=== PATIENT | female | born 1970 | race Caucasian/White ===

== ENCOUNTER 2016-06-08 17:47 | Emergency (ER) | payer MEDICAID ==
[2016-04-15 13:07] VITALS: BMI 20.6
[~2016-06-08 17:47] MED LIST: DOXYCYCLINE HY100 M2 PO; HYDROCODONE-APA1 TAB PO; PREDNISONE20 MG PO; VENTOLIN HFA18 GM INH
[2016-06-08 18:55] LABS: EOSINOPHILS 24.2 % (0-7); HEMATOCRIT 31.5 % (36.0-48.0); HEMOGLOBIN 9.9 g/dL (12-16); IMMATURE GRANULOCYTES 0.7 % (0-5); LYMPHOCYTES 18.5 % (15-50); MCH 29.4 pg (26.0-34.0); MCHC 31.4 g/dL (31.0-37.0); MCV 93.5 fL (80.0-100.0); MEAN PLATELET VOLUME 11.1 fL (7.4-10.4); MONOCYTES 14.8 % (2-11); NEUTROPHILS 40.8 % (40-80); RBC 3.37 10x6/uL (4.00-5.40); RDW 16.1 % (11.5-14.5)
[2016-06-08 19:03] LABS: PLATELET COUNT 143 10x3/uL (130-400)
[2016-06-08 19:14] LABS: ALKALINE PHOSPHATASE 155 U/L (46-116); ALT (SGPT) 51 U/L (10-68); BILIRUBIN - TOTAL 0.35 mg/dL (0.2-1.3); CALC OSMOLALITY 278 mosm/kg (275-300); CALCIUM 8.5 mg/dL (8.5-10.1); CARBON DIOXIDE 25.6 mmol/L (21.0-32.0); CHLORIDE - SERUM 106 mmol/L (98-107); CREATININE - SERUM 0.7 mg/dL (0.6-1.3); GLUCOSE 80 mg/dL (74-106); POTASSIUM - SERUM 3.8 mmol/L (3.5-5.1); PROTEIN - SERUM 5.9 g/dL (6.4-8.2); SODIUM 141 mmol/L (136-145); UREA NITROGEN 10 mg/dL (7-18); eGFR NON AFRICAN AMERICAN > 90 mL/min (90-120)
[2016-06-08 19:30] LABS: CKMB 0.6 U/L (0.0-3.6); CREATINE KINASE 77 UL (21-215)
[2016-06-08 19:33] LABS: TROPONIN-I < 0.017 ng/mL (0.000-0.060)
== END 2016-06-08 20:35 | disposition home or self-care (01) ==
LOC: D.ER 17:47
PROVIDERS: Emergency Medicine
DX: K21.9 Gastro-esophageal reflux disease without esophagitis (principal); K21.0 Gastro-esophageal reflux disease with esophagitis; C16.9 Malignant neoplasm of stomach, unspecified; F17.200 Nicotine dependence, unspecified, uncomplicated

== ENCOUNTER → 2016-08-27 12:57 | Outpatient (CLI) | payer MEDICAID ==
[2016-04-15 13:07] VITALS: BMI 20.6
[2016-08-27 14:14] LABS: BASOPHILS 0.6 % (0.0-2.0); EOSINOPHILS 19.4 % (0-7); HEMATOCRIT 34.1 % (36.0-48.0); IMMATURE GRANULOCYTES 0.3 % (0-5); LYMPHOCYTES 22.3 % (15-50); MCH 30.5 pg (26.0-34.0); MCHC 32.3 g/dL (31.0-37.0); MCV 94.5 fL (80.0-100.0); MEAN PLATELET VOLUME 12.2 fL (7.4-10.4); MONOCYTES 11.5 % (2-11); NEUTROPHILS 45.9 % (40-80); PLATELET COUNT 122 10x3/uL (130-400); RBC 3.61 10x6/uL (4.00-5.40); RDW 15.7 % (11.5-14.5); WBC 3.1 10x3/uL (4.8-10.8)
[2016-08-27 14:24] LABS: ALBUMIN 3.3 g/dL (3.4-5.0); ALKALINE PHOSPHATASE 270 U/L (46-116); ALT (SGPT) 77 U/L (10-68); AMYLASE - SERUM 56 U/L (25-115); BILIRUBIN - TOTAL 0.38 mg/dL (0.2-1.3); CALC OSMOLALITY 279 mosm/kg (275-300); CALCIUM 8.2 mg/dL (8.5-10.1); CHLORIDE - SERUM 106 mmol/L (98-107); CREATININE - SERUM 0.6 mg/dL (0.6-1.3); GLUCOSE 71 mg/dL (74-106); LIPASE 194 U/L (73-393); POTASSIUM - SERUM 4.2 mmol/L (3.5-5.1); PROTEIN - SERUM 6.9 g/dL (6.4-8.2); SODIUM 142 mmol/L (136-145); UREA NITROGEN 10 mg/dL (7-18); eGFR NON AFRICAN AMERICAN > 90 mL/min (90-120)
== END | disposition home or self-care (01) ==
LOC: D.LABREF 12:57
PROVIDERS: Student in an Organized Health Care Education/Training Program
DX: R11.2 Nausea with vomiting, unspecified (principal); E86.0 Dehydration; R63.4 Abnormal weight loss

== ENCOUNTER → 2016-08-31 12:23 | Outpatient (CLI) | payer MEDICAID ==
[2016-04-15 13:07] VITALS: BMI 20.6
[2016-08-31 12:49] LABS: EOSINOPHILS 20.9 % (0-7); HEMATOCRIT 34.5 % (36.0-48.0); HEMOGLOBIN 11.1 g/dL (12-16); IMMATURE GRANULOCYTES 0.3 % (0-5); LYMPHOCYTES 19.3 % (15-50); MCH 30.3 pg (26.0-34.0); MCHC 32.2 g/dL (31.0-37.0); MCV 94.3 fL (80.0-100.0); MEAN PLATELET VOLUME 11.9 fL (7.4-10.4); MONOCYTES 12.2 % (2-11); NEUTROPHILS 46.3 % (40-80); PLATELET COUNT 123 10x3/uL (130-400); RBC 3.66 10x6/uL (4.00-5.40); RDW 15.7 % (11.5-14.5); WBC 3.1 10x3/uL (4.8-10.8)
[2016-08-31 13:31] LABS: ALBUMIN 3.4 g/dL (3.4-5.0); ALKALINE PHOSPHATASE 246 U/L (46-116); ALT (SGPT) 59 U/L (10-68); CALC OSMOLALITY 276 mosm/kg (275-300); CALCIUM 8.8 mg/dL (8.5-10.1); CARBON DIOXIDE 28.2 mmol/L (21.0-32.0); CHLORIDE - SERUM 105 mmol/L (98-107); CREATININE - SERUM 0.6 mg/dL (0.6-1.3); GLUCOSE 85 mg/dL (74-106); POTASSIUM - SERUM 4.2 mmol/L (3.5-5.1); PROTEIN - SERUM 6.8 g/dL (6.4-8.2); SODIUM 140 mmol/L (136-145); UREA NITROGEN 10 mg/dL (7-18); eGFR NON AFRICAN AMERICAN > 90 mL/min (90-120)
== END | disposition home or self-care (01) ==
LOC: D.LABREF 12:23
PROVIDERS: Student in an Organized Health Care Education/Training Program
DX: R79.9 Abnormal finding of blood chemistry, unspecified (principal); D69.6 Thrombocytopenia, unspecified; D72.819 Decreased white blood cell count, unspecified

== ENCOUNTER 2016-09-15 12:56 | Day surgery (SDC) | payer BC ==
[~2016-09-15] VITALS: Ht 170.2 cm; Wt 55.9 kg
--- NOTE | ~2016-09-15 | OP ---
PATIENT NAME: PEPE BOLTON MEDICAL RECORD: [id number] :70 LOCATION:D.OPS ADMISSION DATE: SURGEON: KAYLYN DOWNEY MD DATE OF OPERATION: 09/15/2016 EGD and Colonoscopy Report PROCEDURES: EGD with biopsy and balloon dilatation, colonoscopy with stool study collection, biopsy and polypectomy. DATA ARCHITECT: Kaylyn Downey MD. SCOPE: Olympus video gastroscope and Olympus video colonoscope. MEDICATIONS: Provided per TIVA anesthesia. The patient received 400 mg of propofol for this procedure, O2 of 4 liters. INDICATION FOR TIVA: Asthma, HIV positive AIDS expression. INDICATION FOR THE PROCEDURE: Gastroesophageal reflux disease, nausea, dysphagia, pain associated with hunger, epigastric abdominal pain present since April 2016. The patient is taking Phenergan for her nausea, but not currently on any gastroesophageal reflux disease medication. She has been having some constipation and unintentional weight loss of 17 pounds in the past month. A CT of the chest, abdomen and pelvis April 2016 revealed bilateral pulmonary infiltrates of the mid to lower lung zones concerning for pneumonia, moderately severe fatty replacement changes in the liver with previous cholecystectomy, small right renal cyst and mild sigmoid diverticulosis. The patient's last colonoscopy was [address] Power, which revealed internal hemorrhoids, otherwise normal exam. No family history of colon cancer. The patient will have an EGD with balloon dilatation and biopsy followed by a colonoscopy. FINDINGS: Informed consent was given. The patient was made comfortable with the above medications. After reaching an adequate level of sedation by slow IV push, the patient was placed on her left side. The endoscope was then advanced under direct visualization through the posterior pharyngeal area and advanced to the distal esophagus. It was noted throughout the entire esophagus that the patient had Pham esophagitis. Also, noted was mild distal esophagitis. After dilatation of a minimal distal esophageal stricture, biopsies were taken of the distal esophageal area as well as the mid esophagus. We did dilate the stricture to 60-Haitian without complication. We then entered the gastric area and in retroflexing, discovered only minimal inflammation noted, most pronounced at the antral area. A Helicobacter pylori test was performed in a histopathology biopsy. The duodenal bulb to the second portion was normal with bile present, biopsies were obtained. The scope was then withdrawn. IMPRESSION: 1. Pham esophagitis throughout the entire esophagus, biopsies obtained. 2. Mild distal esophagitis, biopsied in the distal and mid esophagus. 3. Distal esophageal stricture dilated to 60-Haitian without complication. 4. Mild distal antritis, biopsy taken. No ulcers, no erosions. 5. Mild duodenitis. No ulcers, no erosions. Biopsies taken in the second part OPERATIVE REPORT [id number] PEPE BOLTON of the duodenum. PLAN: 1. We will continue the patient on Diflucan at a dose of 200 mg 2 p.o. q. day, use caution with anti-inflammatory drugs. We will treat with omeprazole 20 mg p.o. q.a.m. and famotidine 20 mg p.o. q.h.s. 2. The patient to follow reflux precautions stringently, both dietary and positional. No chocolate, tomatoes, citrus, caffeine, fatty foods, peppermint, no tobacco, no alcohol. The patient should not eat late at night and should sit up for at least 2 hours after meals. COLONOSCOPY WITH STOOL COLLECTION, COLONOSCOPY WITH BIOPSY, COLONOSCOPY WITH POLYPECTOMY: After completion of the EGD part of the procedure, the patient was again positioned on her left side and medications were adjusted for her comfort and safety. The colonoscope was advanced to the cecum where the ileocecal valve and appendiceal orifice were identified. Stool was collected during this procedure for O&P, CDT, wbc, culture, funguses, bacterial culture, viruses and parasites. On withdrawal of the scope, mucosa was carefully inspected. The patient was noted to have some mild distal sigmoid inflammation, biopsies were obtained. No ulcers were noted. Minimal bowel wall swelling was appreciated. In the rectum, a 0.5 cm polyp was seen and removed with hot biopsy forcep technique. On retroflexion and final withdrawal of the scope, minimal hemorrhoids were appreciated. IMPRESSIONS: 1. Stool collected for O&P, CDT, WBC, culture, bacteria, funguses, viruses and parasites. 2. Very mild distal inflammation in the distal sigmoid area, biopsied. No ulcers, erosions, just a few areas of minimal inflammation. 3. A 0.5 cm polyp in the rectal area removed with hot biopsy forcep technique. 4. Minimal left-sided diverticulosis without diverticulitis. PLAN: 1. Again, no aspirin or anti-inflammatory drugs times 14 days. 2. High fiber diet. 3. Avoid tobacco. 4. Avoid caffeine. 5. The patient to take probiotics daily. For constipation, MiraLax and stool softeners. Return to clinic in 1 month. TRANSINT:[id number] Voice Confirmation ID: [id number] DOCUMENT ID: [id number] KAYLYN DOWNEY MD CC: TANNA MCKEON MD and Zelda RUBI [id number] DICTATION DATE: 09/15/161722 UNDER PRESSER: 09/16/16 0010 [facility] 09/15/[address] [address]
[2016-09-15] MEDS ORDERED: DIFLUCAN200 MG PO (13:49)
[2016-09-15] MEDS ORDERED: LEXAPRO10 MG PO (13:50)
[2016-09-15] MEDS ORDERED: ULTRAM50 MG PO (13:50)
[2016-09-15] MEDS ORDERED: IBUPROFEN600 MG PO (13:51)
[2016-09-15 13:57] VITALS: BP 106/56; Ht 170.2 cm; Wt 55.9 kg
[2016-09-15 14:31] LABS: BASOPHILS 0.6 % (0-2); EOSINOPHILS 20.2 % (0-7); HEMATOCRIT 35.9 % (36.0-48.0); HEMOGLOBIN 11.6 g/dL (12-16); LYMPHOCYTES 24.8 % (15-50); MCH 30.9 pg (26.0-34.0); MCHC 32.3 g/dL (31.0-37.0); MCV 95.7 fL (80.0-100.0); MEAN PLATELET VOLUME 12.1 fL (7.4-10.4); MONOCYTES 14.6 % (2-11); NEUTROPHILS 39.8 % (40-80); PLATELET COUNT 116 10x3/uL (130-400); RBC 3.75 10x6/uL (4.00-5.40); RDW 15.8 % (11.5-14.5); WBC 3.2 10x3/uL (4.8-10.8)
[2016-09-15 14:40] LABS: APTT 34.3 SECONDS (22.8-39.4); INR 0.91 (0.85-1.17); PROTIME 12.1 SECONDS (11.6-15.0)
[2016-09-15 14:56] LABS: ALBUMIN 3.2 g/dL (3.4-5.0); ALKALINE PHOSPHATASE 247 U/L (46-116); ALT (SGPT) 53 U/L (10-68); BILIRUBIN - TOTAL 0.42 mg/dL (0.2-1.3); CALC OSMOLALITY 282 mosm/kg (275-300); CALCIUM 8.3 mg/dL (8.5-10.1); CARBON DIOXIDE 27.4 mmol/L (21.0-32.0); CHLORIDE - SERUM 109 mmol/L (98-107); CREATININE - SERUM 0.6 mg/dL (0.6-1.3); GLUCOSE 76 mg/dL (74-106); POTASSIUM - SERUM 3.6 mmol/L (3.5-5.1); PROTEIN - SERUM 6.8 g/dL (6.4-8.2); SODIUM 143 mmol/L (136-145); UREA NITROGEN 9 mg/dL (7-18); eGFR NON AFRICAN AMERICAN > 90 mL/min (90-120)
--- NOTE | 2016-09-15 16:48 | NUR ---
1645 60 PERSIAN BALLOON DILATION DONE X 1 MINUTE.
--- NOTE | 2016-09-15 17:28 | NUR ---
1725 BACK FROM COLONOSCOPY AWAKENING. RESP EVEN AND NONLABORED. PASSED FLATUS FULL LIQUIDS ORDERED.
--- NOTE | 2016-09-15 18:12 | NUR ---
1755 UP TO THE BR VOIDED PAD CHANGED. TOLERATED FULL LIQUIDS.
--- NOTE | 2016-09-15 18:57 | NUR ---
1820 WENT OVER DISCHARGE INSTRUCTIONS NO DRIVING SCRIPTS GONE OVER AND TOLD TO CONTINUE HER DIFLUCAN. INSTRUCTED NO NSAIDS X 14 DAYS AND LIST REVIEWED. REFLUX PRECAUTIONS AND DIET GONE OVER. VERBALLY UNDERSTANDS.
--- NOTE | 2016-09-15 18:58 | NUR ---
1825 TO HOME VIA W/C AFTER V/S WITH FAMILY.
== END 2016-09-15 18:30 | disposition home or self-care (01) ==
LOC: D.OPS 12:56
PROVIDERS: Anesthesiology
DX: B37.81 Candidal esophagitis (principal); K22.2 Esophageal obstruction; K29.60 Other gastritis without bleeding; K29.80 Duodenitis without bleeding; K63.5 Polyp of colon; K57.30 Diverticulosis of large intestine without perforation or abscess without bleeding; K21.9 Gastro-esophageal reflux disease without esophagitis; K59.00 Constipation, unspecified; R63.4 Abnormal weight loss; B20 Human immunodeficiency virus [HIV] disease; J45.909 Unspecified asthma, uncomplicated

== ENCOUNTER → 2016-09-21 09:52 | Outpatient (CLI) | payer MEDICAID ==
[2016-09-15 13:57] VITALS: BMI 19.3
[~2016-09-21 09:52] MED LIST changes: +DIFLUCAN200 MG PO; +IBUPROFEN600 MG PO; +LEXAPRO10 MG PO; +ULTRAM50 MG PO
[2016-09-21 11:01] LABS: BILIRUBIN - DIRECT 0.08 mg/dL (0.00-0.30); BILIRUBIN - INDIRECT 0.26 mg/dL (0.00-1.00); BILIRUBIN - TOTAL 0.34 mg/dL (0.2-1.3); PROTEIN - SERUM 6.9 g/dL (6.4-8.2)
== END | disposition home or self-care (01) ==
LOC: D.US 08:30 → D.LAB 09:15
PROVIDERS: Internal Medicine Gastroenterology
DX: K76.0 Fatty (change of) liver, not elsewhere classified (principal)

== ENCOUNTER → 2016-11-23 13:29 | Outpatient (CLI) | payer OTHER ==
[2016-09-15 13:57] VITALS: BMI 19.3
== END | disposition home or self-care (01) ==
LOC: D.RT 13:29
DX: Z02.71 Encounter for disability determination (principal)

== ENCOUNTER 2016-11-25 18:43 | Emergency (ER) | payer OTHER, BC ==
[2016-09-15 13:57] VITALS: BMI 19.3
[2016-11-25 19:51] LABS: APPEARANCE CLEAR (CLEAR); BILIRUBIN NEGATIVE (NEGATIVE); COLOR YELLOW (YELLOW); GLUCOSE NEGATIVE (NEGATIVE); KETONE NEGATIVE (NEGATIVE); LEUKOCYTE ESTERASE 1+ (NEGATIVE); NITRITE NEGATIVE (NEGATIVE); PROTEIN NEGATIVE (NEGATIVE); SPECIFIC GRAVITY 1.005 (1.005-1.020); UROBILINOGEN NORMAL (NORMAL)
[2016-11-25 19:53] LABS: BACTERIA NONE SEEN /hpf (NONE SEEN); EPITHELIAL CELLS RARE /hpf (0-5); RED CELLS - URINE NONE SEEN /hpf (0-5); WHITE CELLS - URINE RARE /hpf (0-5)
[2016-11-25 20:06] LABS: BASOPHILS 1.2 % (0-2); EOSINOPHILS 11.5 % (0-7); HEMATOCRIT 33.3 % (36.0-48.0); HEMOGLOBIN 10.9 g/dL (12-16); IMMATURE GRANULOCYTES 0.3 % (0-5); LYMPHOCYTES 12.1 % (15-50); MCHC 32.7 g/dL (31.0-37.0); MCV 94.6 fL (80.0-100.0); MONOCYTES 20.9 % (2-11); PLATELET COUNT 121 10x3/uL (130-400); RBC 3.52 10x6/uL (4.00-5.40); RDW 15.7 % (11.5-14.5); WBC 3.2 10x3/uL (4.8-10.8)
[2016-11-25 20:30] LABS: ALBUMIN 3.3 g/dL (3.4-5.0); ALKALINE PHOSPHATASE 121 U/L (46-116); ALT (SGPT) 23 U/L (10-68); AMYLASE - SERUM 52 U/L (25-115); BILIRUBIN - TOTAL 0.39 mg/dL (0.2-1.3); CALC OSMOLALITY 274 mosm/kg (275-300); CARBON DIOXIDE 27.1 mmol/L (21.0-32.0); CHLORIDE - SERUM 103 mmol/L (98-107); CREATININE - SERUM 0.8 mg/dL (0.6-1.3); GLUCOSE 104 mg/dL (74-106); LIPASE 119 U/L (73-393); POTASSIUM - SERUM 4.1 mmol/L (3.5-5.1); PROTEIN - SERUM 7.6 g/dL (6.4-8.2); SODIUM 139 mmol/L (136-145); UREA NITROGEN 5 mg/dL (7-18); eGFR NON AFRICAN AMERICAN 82 mL/min (90-120)
== END 2016-11-25 23:10 | disposition home or self-care (01) ==
LOC: D.ER 18:43
PROVIDERS: Family Medicine
DX: K52.9 Noninfective gastroenteritis and colitis, unspecified (principal); R11.10 Vomiting, unspecified; K21.9 Gastro-esophageal reflux disease without esophagitis; C16.9 Malignant neoplasm of stomach, unspecified; B20 Human immunodeficiency virus [HIV] disease; F17.200 Nicotine dependence, unspecified, uncomplicated

== ENCOUNTER 2016-12-24 09:52 | Emergency (ER) | payer MEDICAID ==
[2016-09-15 13:57] VITALS: BMI 19.3
[2016-12-24 11:00] LABS: BASOPHILS 0.4 % (0-2); EOSINOPHILS 3.2 % (0-7); HEMATOCRIT 32.8 % (36.0-48.0); HEMOGLOBIN 10.7 g/dL (12-16); IMMATURE GRANULOCYTES 0.2 % (0-5); LYMPHOCYTES 10.3 % (15-50); MCH 30.7 pg (26.0-34.0); MCHC 32.6 g/dL (31.0-37.0); MEAN PLATELET VOLUME 12.2 fL (7.4-10.4); MONOCYTES 12.4 % (2-11); NEUTROPHILS 73.5 % (40-80); RBC 3.49 10x6/uL (4.00-5.40); RDW 15.3 % (11.5-14.5); WBC 5.3 10x3/uL (4.8-10.8)
[2016-12-24 11:06] LABS: PLATELET COUNT 152 10x3/uL (130-400)
[2016-12-24 11:10] LABS: APTT 33.5 SECONDS (22.8-39.4); INR 0.93 (0.85-1.17); PROTIME 12.3 SECONDS (11.6-15.0)
[2016-12-24 11:16] LABS: ALKALINE PHOSPHATASE 131 U/L (46-116); ALT (SGPT) 32 U/L (10-68); BILIRUBIN - TOTAL 0.59 mg/dL (0.2-1.3); CALC OSMOLALITY 266 mosm/kg (275-300); CALCIUM 8.5 mg/dL (8.5-10.1); CARBON DIOXIDE 26.4 mmol/L (21.0-32.0); CHLORIDE - SERUM 101 mmol/L (98-107); CREATININE - SERUM 0.7 mg/dL (0.6-1.3); GLUCOSE 91 mg/dL (74-106); POTASSIUM - SERUM 3.8 mmol/L (3.5-5.1); PROTEIN - SERUM 7.5 g/dL (6.4-8.2); SODIUM 134 mmol/L (136-145); UREA NITROGEN 9 mg/dL (7-18); eGFR NON AFRICAN AMERICAN > 90 mL/min (90-120)
[2016-12-24 12:39] LABS: APPEARANCE CLOUDY (CLEAR); BACTERIA MANY /hpf (NONE SEEN); BILIRUBIN NEGATIVE (NEGATIVE); COLOR YELLOW (YELLOW); EPITHELIAL CELLS 0-5 /hpf (0-5); GLUCOSE NEGATIVE (NEGATIVE); KETONE NEGATIVE (NEGATIVE); LEUKOCYTE ESTERASE 2+ (NEGATIVE); MUCUS <1+ /lpf (NONE SEEN); NITRITE NEGATIVE (NEGATIVE); PROTEIN NEGATIVE (NEGATIVE); UROBILINOGEN NORMAL (NORMAL)
[2016-12-24 12:40] LABS: RED CELLS - URINE RARE /hpf (0-5)
== END 2016-12-24 16:55 | disposition home or self-care (01) ==
LOC: D.ER 09:52
PROVIDERS: Emergency Medicine; Nurse Practitioner Family
DX: N39.0 Urinary tract infection, site not specified (principal); R53.1 Weakness; A59.9 Trichomoniasis, unspecified; K21.9 Gastro-esophageal reflux disease without esophagitis; B20 Human immunodeficiency virus [HIV] disease; C16.9 Malignant neoplasm of stomach, unspecified; F17.200 Nicotine dependence, unspecified, uncomplicated; R10.9 Unspecified abdominal pain; R07.9 Chest pain, unspecified; R50.9 Fever, unspecified; R53.83 Other fatigue; R51 Headache; M54.2 Cervicalgia; R11.0 Nausea

== ENCOUNTER 2017-01-04 17:08 | Inpatient (IN) | payer MEDICAID ==
[~2017-01-04] VITALS: Ht 165.1 cm; Wt 52.6 kg
--- NOTE | ~2017-01-04 | PRO ---
PATIENT:PEPE BOLTON MEDICAL RECORD: [id number] : 70 LOCATION:D. D.2131 ADMISSION DATE: 01/04/17 PROCEDURE PERFORMED BY: VANDANA JOYA MD DATE OF PROCEDURE: 01/06/2017 PROCEDURE: Fiberoptic bronchoscopy. INDICATION: Ms. Bolton is a 46-year-old female, who has HIV disease, admitted with bilateral pneumonia. Fiberoptic bronchoscopy was carried out to get specimen for culture and sensitivity and PCP. MONITORING: EKG, pulse, and blood pressure were monitored throughout the procedure. MEDICATIONS: Atropine 0.6 mg IM, morphine 4 mg IM, Versed 5 mg IV in divided doses, fentanyl 100 mcg IV in divided doses. PROCEDURE IN DETAIL: After passing the bronchoscope through the mouth. The epiglottis was normal. The vocal cords were normal, moving equally on phonation. The main trachea was normal. The kenton was sharp. The right main bronchus was subsegment to the right upper lobe, right lower lobe, right middle lobe within normal range. No endobronchial lesion was seen. The left main bronchus was normal. The subsegment to the left upper lobe, left lower lobe within normal range. No endobronchial lesion was seen. There white secretions in the endobronchial tree, no endobronchial lesion. Specimen washing was obtained and sent for routine culture and sensitivity, AFB and fungus and cytology as well as for PCP staining. Overall, the patient tolerated the procedure very well. TRANSINT:[id number] Voice Confirmation ID: [id number] DOCUMENT ID: [id number] VANDANA JOYA MD CC: [id number] DICTATION DATE: 01/06/17 1206 PRODUCT DEVELOPMENT INTERN: 01/06/172013 ADM IN [facility] [address] [id number]
--- NOTE | ~2017-01-04 | CN ---
PATIENT NAME:PEPE KENDALL MEDICAL RECORD: [id number] : 70 LOCATION:D. D.2131 ADMIT DATE: 01/04/17 ACCOUNT: [id number] CONSULTING PHYSICIAN: VANDANA JOYA MD REFERRING PHYSICIAN: SANTY BE MD DATE OF CONSULTATION: 01/05/2017 CONSULT REQUESTING PHYSICIAN: Santy Be MD REASON FOR CONSULTATION: Bilateral pneumonia, HIV disease. HISTORY OF PRESENT ILLNESS: Ms. Kendall is a 46-year-old female who has a history of HIV disease. She is sick for the last few days. She is complaining of fever and chills. She is coughing productive yellow color sputum production. She is also having shortness of breath. On evaluation in the ER, she was found out she has bilateral lower lobe infiltrate and possibly associated pulmonary fibrosis. REVIEW OF SYSTEMS: Mainly in the history of present illness. PAST MEDICAL HISTORY: 1. COPD. 2. HIV/AIDS disease. 3. Pneumonia. 4. History of diarrhea. PAST SURGICAL HISTORY: 1. She had a tubal ligation. 2. Cholecystectomy. 3. Lymph node biopsy. ALLERGIES: SHE IS ALLERGIC TO PENICILLIN AND ASPIRIN. PRESENT MEDICATIONS: On [place] was reviewed. PERSONAL AND SOCIAL HISTORY: The patient is an ex-smoker. She is a nondrinker. FAMILY HISTORY: Significant for diabetes and cancer. PHYSICAL EXAMINATION: GENERAL: Now, the patient is lying comfortably. She is not in acute distress. VITAL SIGNS: The blood pressure is 96/56, pulse is 111, respirations 19, temperature 97.3, SPO2 is 98% on 2 liters nasal cannula. HEENT: Conjunctivae are pink. Sclerae nonicteric. NECK: Supple, no JVD. CHEST: Bilateral crackles. No wheezing. HEART: Rhythm regular, normal sound, no murmur. ABDOMEN: Soft. Bowel sounds present. No hepatosplenomegaly. RECTAL: Deferred. EXTREMITIES: No cyanosis, no clubbing, no pedal edema. SKIN: Warm, normal turgor. CENTRAL NERVOUS SYSTEM: The patient is awake and alert. There is no obvious cranial nerve abnormality. The gait was not tested. IMAGING: CT scan of the chest: There is bilateral diffuse infiltrate with CONSULT REPORT [id number] PEPE KENDALL ground-glass infiltrate. There are severe emphysematous changes. OTHER LABORATORY DATA: CBC: The WBC is 4.6, hemoglobin is 8.8, hematocrit is 27.5, the platelet count is 142. ABGs: pH is 7.43, pCO2 is 30.2, pO2 of 62, bicarbonate is 20.3. IMPRESSION: 1. Acute hypoxic respiratory failure. 2. Bilateral pneumonia, typical versus atypical. 3. Human immunodeficiency virus disease/acquired immune deficiency syndrome. 4. Febrile illness secondary to pneumonia. 5. Chronic obstructive pulmonary disease. 6. Acute hypoxic respiratory failure. RECOMMENDATION: 1. Continue present antibiotic per Dr. Mariscal. Continue the albuterol/ipratropium nebulizer. 2. We will proceed with the fiberoptic bronchoscopy in a.m. Dr. Be, thank you for involving me in the care of Ms. Kendall. TRANSINT:[id number] Voice Confirmation ID: [id number] DOCUMENT ID: [id number] VANDANA JOYA MD CC: SANTY BE MD [id number] DICTATION DATE: 01/05/17 163 LURE MAKER: 01/05/172126 ADM IN [place] [id number] [place] [id number]
[2017-01-04 18:33] LABS: BASOPHILS 0 % (0-2); EOSINOPHILS 0 % (0-7); HEMATOCRIT 27.5 % (36.0-48.0); HEMOGLOBIN 8.8 g/dL (12-16); IMMATURE GRANULOCYTES 0.2 % (0-5); LYMPHOCYTES 10.2 % (15-50); MCH 29.9 pg (26.0-34.0); MCV 93.5 fL (80.0-100.0); MEAN PLATELET VOLUME 11.5 fL (7.4-10.4); NEUTROPHILS 74.6 % (40-80); PLATELET COUNT 142 10x3/uL (130-400); RBC 2.94 10x6/uL (4.00-5.40); RDW 16.1 % (11.5-14.5); WBC 4.6 10x3/uL (4.8-10.8)
[2017-01-04 19:09] LABS: ALBUMIN 2.1 g/dL (3.4-5.0); ALKALINE PHOSPHATASE 105 U/L (46-116); ALT (SGPT) 17 U/L (10-68); BILIRUBIN - TOTAL 0.51 mg/dL (0.2-1.3); CALC OSMOLALITY 274 mosm/kg (275-300); CALCIUM 7.1 mg/dL (8.5-10.1); CARBON DIOXIDE 23.5 mmol/L (21.0-32.0); CHLORIDE - SERUM 104 mmol/L (98-107); CREATININE - SERUM 0.6 mg/dL (0.6-1.3); GLUCOSE 98 mg/dL (74-106); POTASSIUM - SERUM 3.2 mmol/L (3.5-5.1); PROTEIN - SERUM 5.3 g/dL (6.4-8.2); SODIUM 138 mmol/L (136-145); UREA NITROGEN 11 mg/dL (7-18); eGFR NON AFRICAN AMERICAN > 90 mL/min (90-120)
[2017-01-04 20:09] LABS: APPEARANCE CLEAR (CLEAR); BILIRUBIN NEGATIVE (NEGATIVE); COLOR YELLOW (YELLOW); GLUCOSE NEGATIVE (NEGATIVE); KETONE SMALL mg/dL (NEGATIVE); LEUKOCYTE ESTERASE 2+ (NEGATIVE); NITRITE NEGATIVE (NEGATIVE); PROTEIN 1+ mg/dL (NEGATIVE); UROBILINOGEN NORMAL (NORMAL)
[2017-01-04 20:19] LABS: BACTERIA MODERATE /hpf (NONE SEEN); EPITHELIAL CELLS 0-5 /hpf (0-5); RED CELLS - URINE 0-5 /hpf (0-5); WHITE CELLS - URINE 25-50 /hpf (0-5)
[2017-01-05] VITALS: BP 94/59
[2017-01-05] MEDS ORDERED: BACTRIM DS TABL1 TAB PO (00:09)
[2017-01-05 01:42] VITALS: BP 94/59; BMI 20.3
[2017-01-05 04:00] VITALS: BP 81/50
--- NOTE | 2017-01-05 04:22 | NUR ---
RESTING WITH EYES CLOSED, RESPERATIONS EVEN, NO S/S DISTRESS NOTED.
--- NOTE | 2017-01-05 07:40 | NUR ---
AM ROUNDS- PT IN BED, DENIES ANY NEEDS AT THIS TIME. BED LOW AND WHEELS LOCKED, BEDSIDE RAILS X2. RESP EVEN AND UNLABORED ON 2L, LT AC INFUSING NS AT KVO. PT REFUSED TO WEAR SCD'S " STATED I DONT NEED THEM, SINCE I AM UP AND DOWN ALL THE TIME". PT INFORMED ABOUT URINE AND STOOL SAMPLE NEEDED. NAD NOTED, CALL LIGHT IN REACH, WILL CONTINUE TO MONITOR.
[2017-01-05 09:00] VITALS: BP 96/56
--- NOTE | 2017-01-05 09:11 | NUR ---
AM MEDS GIVEN. INFORMED PT THAT WE NEED URINE SAMPLE, HAT AND WIPES PROVIDED. PT DENIES ANY NEEDS AT THIS TIME. CALL LIGHT IN REACH, CRYSTAL GARCIA, WILL CONTINUE TO MONITOR.
[2017-01-05 11:55] LABS: % SATURATION 15 % (15-55); IRON 29 ug/dl (35-150); TOTAL IRON BIND CAPACITY 187 ug/dl (260-445); UNSAT IRON BIND CAPACITY 158 ug/dl (150-375)
[2017-01-05 12:38] LABS: APTT 39.9 SECONDS (22.8-39.4); INR 1.08 (0.85-1.17); PROTIME 13.9 SECONDS (11.6-15.0)
[2017-01-05 13:46] VITALS: Ht 165.1 cm; Wt 52.6 kg
--- NOTE | 2017-01-05 14:45 | NUR ---
PT TRANSFERED TO SPECIALS FOR LUMBER PUNCTURE, NAD NOTED.
[2017-01-05 15:59] LABS: GLUCOSE - CSF 84 MG/DL (40-75); PROTEIN - CSF 32 MG/DL (12-60)
[2017-01-05 16:20] LABS: APPEARANCE - CSF CLEAR
[2017-01-05 16:22] LABS: RBC - CSF 0 cmm (0-0)
[2017-01-05 18:51] LABS: BASOPHILS 0 % (0-2); EOSINOPHILS 0 % (0-7); HEMATOCRIT 30.3 % (36.0-48.0); HEMOGLOBIN 9.7 g/dL (12-16); IMMATURE GRANULOCYTES 0.3 % (0-5); MCH 29.8 pg (26.0-34.0); MCV 92.9 fL (80.0-100.0); MEAN PLATELET VOLUME 10.6 fL (7.4-10.4); MONOCYTES 10.4 % (2-11); NEUTROPHILS 81.3 % (40-80); PLATELET COUNT 149 10x3/uL (130-400); RBC 3.26 10x6/uL (4.00-5.40); RDW 15.7 % (11.5-14.5); WBC 3.8 10x3/uL (4.8-10.8)
[2017-01-05 19:00] VITALS: BP 87/54
[2017-01-05 19:08] LABS: APTT 34.3 SECONDS (22.8-39.4)
[2017-01-05 19:09] LABS: INR 1.08 (0.85-1.17); PROTIME 13.9 SECONDS (11.6-15.0)
--- NOTE | 2017-01-05 20:50 | NUR ---
HS MEDS GIVEN WITH FRESH ICE WATER, PT STATES THAT SHE STILL HAS A HEADACHE, BUT ITS STARTING TO FEEL BETTER.
[2017-01-06] VITALS (11 sets, daily range): BP systolic 98–122; BP diastolic 61–83
--- NOTE | 2017-01-06 01:31 | NUR ---
CALL LIGHT IN REACH, WILL CONTINUE WITH PLAN OF CARE.
[2017-01-06 06:46] LABS: BASOPHILS 0 % (0-2); EOSINOPHILS 0 % (0-7); HEMATOCRIT 30.4 % (36.0-48.0); HEMOGLOBIN 9.6 g/dL (12-16); IMMATURE GRANULOCYTES 0.3 % (0-5); LYMPHOCYTES 3.8 % (15-50); MCH 29.6 pg (26.0-34.0); MCHC 31.6 g/dL (31.0-37.0); MCV 93.8 fL (80.0-100.0); MEAN PLATELET VOLUME 11.6 fL (7.4-10.4); MONOCYTES 5.6 % (2-11); NEUTROPHILS 90.3 % (40-80); PLATELET COUNT 158 10x3/uL (130-400); RBC 3.24 10x6/uL (4.00-5.40); RDW 16.2 % (11.5-14.5)
[2017-01-06 06:59] LABS: ALBUMIN 2.3 g/dL (3.4-5.0); ALKALINE PHOSPHATASE 98 U/L (46-116); ALT (SGPT) 18 U/L (10-68); BILIRUBIN - TOTAL 0.33 mg/dL (0.2-1.3); CALCIUM 8.4 mg/dL (8.5-10.1); CARBON DIOXIDE 25.7 mmol/L (21.0-32.0); CHLORIDE - SERUM 107 mmol/L (98-107); CREATININE - SERUM 0.6 mg/dL (0.6-1.3); PROTEIN - SERUM 6.3 g/dL (6.4-8.2); SODIUM 142 mmol/L (136-145); UREA NITROGEN 9 mg/dL (7-18); WBC 10.1 10x3/uL (4.8-10.8); eGFR NON AFRICAN AMERICAN > 90 mL/min (90-120)
[2017-01-06 07:18] LABS: CALC OSMOLALITY 285 mosm/kg (275-300); GLUCOSE 173 mg/dL (74-106)
--- NOTE | 2017-01-06 07:21 | NUR ---
AM ROUNDS- PT IN BED, WITH EYES CLOSED. RESP EVEN AND UNLABORED. RT AC INFUSING BACTRIUM. BED LOW AND WHEELS LOCKED, BEDSIDE RAIL X2, CALL LIGHT IN REACH, NAD NOTED, WILL CONTINUE TO MONITOR.
[2017-01-06 08:20] LABS: FOLATE (FOLIC ACID) - SERUM 15.5 ng/mL (>3.0)
--- NOTE | 2017-01-06 11:03 | NUR ---
PRE-OP MEDS GIVEN AT THIS TIME. PT DENIES ANY NEEDS. CALL LIGHT IN REACH, NAD NOTED, WILL CONTINUE TO MONITOR.
--- NOTE | 2017-01-06 11:32 | NUR ---
PT TRANSFERED TO SPECIALS VIA BED, NAD NOTED.
--- NOTE | 2017-01-06 12:30 | NUR ---
RECEIVED PT BACK TO ROOM 2131, VIA BED, PT STILL DROWSY FROM MEDS GIVEN DURING PROCEDURE. VITAL SIGNS STABLE SET UP FOR 15MIN INTERVALS. PT DENIES ANY NEEDS AT THIS TIME. CALL LIGHT IN REACH, NAD NOTED, WILL CONTINUE TO MONITOR.
[2017-01-06 17:12] LABS: BASOS 0 % (()); CD4 - % CD4 POS. LYMPH 4.4 % (30.8-58.5); CD4 - ABSOLUTE CD4 HELPER 13 /uL (359-1519); EOS 0 % (()); HEMATOCRIT 29.6 % (34.0-46.6); HEMOGLOBIN 9.4 g/dL (11.1-15.9); LYMPHS 13 % (()); LYMPHS (ABSOLUTE) 0.3 x10E3/uL (0.7-3.1); MCH 28.9 pg (26.6-33.0); MCHC 31.8 g/dL (31.5-35.7); MCV 91 fL (79-97); MONOCYTES 13 % (()); MONOCYTES (ABSOLUTE) 0.3 x10E3/uL (0.1-0.9); NEUTROPHILS 74 % (()); NEUTROPHILS (ABSOLUTE) 1.7 x10E3/uL (1.4-7.0); PLATELETS 171 x10E3/uL (150-379); RBC 3.25 x10E6/uL (3.77-5.28); RDW 15.6 % (12.3-15.4); WBC 2.3 x10E3/uL (3.4-10.8)
--- NOTE | 2017-01-06 19:00 | NUR ---
REC REPORT/ASSUMED CARE OF PATIENT. ALERT/AWAKE ORIENTED X 4. DENIES ANY NEEDS OR DISCOMFORTS. ON 02 AT 2L/NC. RR 18 EVEN U/L. ORIENTED TO CL FOR ANY NEEDS.
--- NOTE | 2017-01-07 05:30 | NUR ---
RETURNING TO BED FROM BR. DENIES ANY NEEDS.
[2017-01-07 06:57] LABS: HEMATOCRIT 27.3 % (36.0-48.0); HEMOGLOBIN 8.9 g/dL (12-16); LYMPHOCYTES 2.2 % (15-50); MCH 30.1 pg (26.0-34.0); MCHC 32.6 g/dL (31.0-37.0); MCV 92.2 fL (80.0-100.0); MEAN PLATELET VOLUME 10.8 fL (7.4-10.4); NEUTROPHILS 93.4 % (40-80); PLATELET COUNT 152 10x3/uL (130-400); RBC 2.96 10x6/uL (4.00-5.40); RDW 16.8 % (11.5-14.5)
[2017-01-07 06:59] LABS: WBC 13.1 10x3/uL (4.8-10.8)
[2017-01-07 07:12] LABS: ALBUMIN 2.1 g/dL (3.4-5.0); ALT (SGPT) 22 U/L (10-68); CALC OSMOLALITY 286 mosm/kg (275-300); CALCIUM 8.2 mg/dL (8.5-10.1); CARBON DIOXIDE 21.9 mmol/L (21.0-32.0); CHLORIDE - SERUM 110 mmol/L (98-107); CREATININE - SERUM 0.7 mg/dL (0.6-1.3); GLUCOSE 173 mg/dL (74-106); SODIUM 143 mmol/L (136-145); UREA NITROGEN 8 mg/dL (7-18); eGFR NON AFRICAN AMERICAN > 90 mL/min (90-120)
[2017-01-07 07:25] LABS: ALKALINE PHOSPHATASE 103 U/L (46-116); PROTEIN - SERUM 5.7 g/dL (6.4-8.2)
[2017-01-07 07:25] LABS: RAPID PLASMA REAGIN Non Reactive (Non Reactive)
--- NOTE | 2017-01-07 07:52 | NUR ---
PT SITTING UP IN BED RECEIVING BREATHING TX. WENT TO HANG UP STOOL SPECIMEN BAG TO COLLECT WHEN PT HAS A BM. PT CLAIMS SHE HAS HAD A BM AND HAS BEEN TELLING STAFF FOR X2 DAYS TO COLLECT. THERE IS HARD STOOL IN HAT IN TOILET. WILL THROW AWAY AND GIVE PT NEW HAT TO COLLECT FRESH STOOL SPECIMEN.
[2017-01-07 08:00] VITALS: BP 112/75
[2017-01-07 12:15] LABS: FUNGUS STAIN Final report (())
[2017-01-07 12:25] VITALS: BP 100/65
[2017-01-07 16:24] VITALS: BP 108/73
--- NOTE | 2017-01-07 18:32 | NUR ---
PT LAYING DOWN IN BED DENIES NEEDS
[2017-01-07 19:00] VITALS: BP 118/88
[2017-01-07 19:11] LABS: ACID FAST SMEAR Negative (()); AFB SPECIMEN PROCESSING Concentration (())
--- NOTE | 2017-01-07 19:32 | NUR ---
PT IS RESTING IN BED WITH EYES OPEN. ALERT AND ORIENTED X 3. DENIES ACUTE PAIN OR DISCOMFORT AT THIS TIME. NO NEEDS VOICED. TELEMETRY UNIT IS ON AND INTACT. O2 IS ON @ 3LPM PER NC. NO SOB NOTED. SR'S ARE UP X 2 IN BED. CALL LIGHT AND BEDSIDE TABLE ARE WITHIN EASY REACH.
--- NOTE | 2017-01-07 22:11 | NUR ---
PT IS RESTING QUIETLY IN BED WITH EYES CLOSED. RESPS ARE EVEN AND UNLABORED. NO ACUTE DISTRESS NOTED.
--- NOTE | 2017-01-07 23:00 | NUR ---
PT RESTING ON L SIDE. DENIES ANY DISCOMFORT. WILL CONTINUE TO MONITOR.
[2017-01-08] VITALS: BP 99/65
--- NOTE | 2017-01-08 03:00 | NUR ---
PT IS RESTING QUIETLY IN BED WITH EYES CLOSED. RESPS ARE EVEN AND UNLABORED. NO ACUTE DISTRESS NOTED.
[2017-01-08 04:00] VITALS: BP 108/75
--- NOTE | 2017-01-08 06:02 | NUR ---
PT RESTING IN BED WITH EYES CLOSED. AWOKE EASILY TO VERBAL STIMULI. TOLERATED AM MED WITHOUT DIFFICULTY. NO ACUTE DISTRESS NOTED.
[2017-01-08 06:29] LABS: BASOPHILS 0 % (0-2); EOSINOPHILS 0 % (0-7); HEMATOCRIT 27.2 % (36.0-48.0); HEMOGLOBIN 8.4 g/dL (12-16); IMMATURE GRANULOCYTES 0.4 % (0-5); LYMPHOCYTES 2.3 % (15-50); MCH 29.1 pg (26.0-34.0); MCHC 30.9 g/dL (31.0-37.0); MCV 94.1 fL (80.0-100.0); MEAN PLATELET VOLUME 11.9 fL (7.4-10.4); MONOCYTES 4.6 % (2-11); NEUTROPHILS 92.7 % (40-80); RBC 2.89 10x6/uL (4.00-5.40); RDW 16.5 % (11.5-14.5)
[2017-01-08 06:33] LABS: PLATELET COUNT 187 10x3/uL (130-400)
[2017-01-08 06:51] LABS: ALBUMIN 2.1 g/dL (3.4-5.0); ALKALINE PHOSPHATASE 112 U/L (46-116); ALT (SGPT) 25 U/L (10-68); CALC OSMOLALITY 281 mosm/kg (275-300); CALCIUM 8.5 mg/dL (8.5-10.1); CARBON DIOXIDE 21.3 mmol/L (21.0-32.0); CHLORIDE - SERUM 110 mmol/L (98-107); CREATININE - SERUM 0.7 mg/dL (0.6-1.3); GLUCOSE 137 mg/dL (74-106); MAGNESIUM - SERUM 2.3 mg/dL (1.8-2.4); PHOSPHOROUS 2.6 mg/dL (2.5-4.9); POTASSIUM - SERUM 4.2 mmol/L (3.5-5.1); PROTEIN - SERUM 5.6 g/dL (6.4-8.2); SODIUM 141 mmol/L (136-145); eGFR NON AFRICAN AMERICAN > 90 mL/min (90-120)
[2017-01-08 06:52] LABS: UREA NITROGEN 11 mg/dL (7-18)
--- NOTE | 2017-01-08 07:50 | NUR ---
PT AOX4 RESP EVEN AND NONLABORED PT DENIES NEEDS AT THIS TIME IV TO LEFT AC PATENT AND INTACT AT THIS TIME SRX2 BED AT LOWEST SETTING CALL LIGHT WITHIN REACH WILL CONTINUE TO MONITOR
[2017-01-08 08:49] VITALS: BP 109/73
[2017-01-08 13:18] VITALS: BP 96/62
[2017-01-08 15:11] LABS: CRYPTOCOCCUS AG - SERUM Negative (Negative)
--- NOTE | 2017-01-08 19:35 | NUR ---
RESUMED CARE OF PT, LYING IN BED RESPIRATIONS EVEN AND UNLABORED ON 5LPM VIA NC. 98 SR ON TELEMETRY. LEFT AC INFUSING NS @ 10. CALL LIGHT IN REACH. WILL CONTINUE TO MONITOR. SEE NURSE ASSESSMENT. REQUESTS PAIN MEDICATION.
[2017-01-08 20:23] VITALS: BP 103/66
--- NOTE | 2017-01-09 00:47 | NUR ---
HOT PACK APPLIED TO NECK, CALL LIGHT IN REACH. WILL CONTINUE TO MONITOR. HATS IN FRONT AND BACK OF COMMODE, PT UNDERSTANDS THAT WE NEED SAMPLES OF BOTH. WILL CONTINUE TO MONITOR.
[2017-01-09 01:29] VITALS: BP 114/76
--- NOTE | 2017-01-09 03:04 | NUR ---
URINE SAMPLE OBTAINED
[2017-01-09 03:06] LABS: APPEARANCE HAZY (CLEAR); BACTERIA FEW /hpf (NONE SEEN); BILIRUBIN NEGATIVE (NEGATIVE); COLOR YELLOW (YELLOW); EPITHELIAL CELLS RARE /hpf (0-5); GLUCOSE NEGATIVE (NEGATIVE); KETONE NEGATIVE (NEGATIVE); LEUKOCYTE ESTERASE 1+ (NEGATIVE); NITRITE NEGATIVE (NEGATIVE); PROTEIN TRACE mg/dL (NEGATIVE); RED CELLS - URINE 0-5 /hpf (0-5); UROBILINOGEN NORMAL (NORMAL)
[2017-01-09 04:10] LABS: BASOPHILS 0 % (0-2); EOSINOPHILS 0 % (0-7); HEMATOCRIT 28.3 % (36.0-48.0); IMMATURE GRANULOCYTES 0.5 % (0-5); LYMPHOCYTES 2.3 % (15-50); MCH 29.8 pg (26.0-34.0); MCHC 31.8 g/dL (31.0-37.0); MCV 93.7 fL (80.0-100.0); MEAN PLATELET VOLUME 11.8 fL (7.4-10.4); MONOCYTES 3.4 % (2-11); NEUTROPHILS 93.8 % (40-80); PLATELET COUNT 192 10x3/uL (130-400); RBC 3.02 10x6/uL (4.00-5.40); RDW 16.2 % (11.5-14.5); WBC 11.2 10x3/uL (4.8-10.8)
[2017-01-09 04:40] LABS: ALBUMIN 2.1 g/dL (3.4-5.0); ALKALINE PHOSPHATASE 128 U/L (46-116); ALT (SGPT) 24 U/L (10-68); CALC OSMOLALITY 280 mosm/kg (275-300); CALCIUM 8.9 mg/dL (8.5-10.1); CARBON DIOXIDE 22.2 mmol/L (21.0-32.0); CHLORIDE - SERUM 109 mmol/L (98-107); CREATININE - SERUM 0.6 mg/dL (0.6-1.3); GLUCOSE 144 mg/dL (74-106); POTASSIUM - SERUM 4.3 mmol/L (3.5-5.1); PROTEIN - SERUM 5.9 g/dL (6.4-8.2); SODIUM 140 mmol/L (136-145); UREA NITROGEN 10 mg/dL (7-18); eGFR NON AFRICAN AMERICAN > 90 mL/min (90-120)
[2017-01-09 05:44] VITALS: BP 106/64
--- NOTE | 2017-01-09 06:10 | NUR ---
NO CHANGES FROM PREVIOUS ASSESSMENT, CALL LIGHT IN REACH. WILL CONTINUE TO MONITOR.
--- NOTE | 2017-01-09 07:54 | NUR ---
AM ROUNDING DONE WITH PATIENT ON HEART MONITOR SHOWNG ST, HR 101. ON 5L PER NC WITH HUM. O2. LEFT AC SEEN WITH NS INFUSING AT KVO STATUS. ASSISTED TO BEDPAN, CALL LIGHT IN USE FOR WHEN SHE IS DONE. WILL CPOC.
[2017-01-09 07:58] VITALS: BP 101/54
--- NOTE | 2017-01-09 08:23 | NUR ---
COMPLAINTS OF NAUSEA AND HEADACHE. MEDS GIVEN ORDERED. ICE PACK OFFERED.
[2017-01-09 11:54] VITALS: BP 113/76
--- NOTE | 2017-01-09 14:37 | NUR ---
DENIES ANY NEEDS AT PRESENT TIME.
[2017-01-09 16:12] VITALS: BP 100/67
--- NOTE | 2017-01-09 17:36 | NUR ---
COMPLAINTS OF NAUSEA, ZOFRAN GIVEN SLOW IVP.
--- NOTE | 2017-01-09 19:46 | NUR ---
RESUMED CARE OF PT, LYING IN BED RESPIRATIONS EVEN AND UNLABORED ON 5LPM VIA NC. 97 SR ON TELEMETRY. ASSISSTED ON AND OFF BEDPAN 400CC YELLOW URINE. LEFT AC INFUSING NS @ KVO. REQUESTS HOT PACK FOR NECK. CALL LIGHT IN REACH. WILL CONTINUE TO MONITOR. SEE NURSE ASSESSMENT.
[2017-01-09 20:00] VITALS: BP 105/72
[2017-01-10] VITALS: BP 117/79
[2017-01-10 04:00] VITALS: BP 100/75
[2017-01-10 06:26] LABS: BASOPHILS 0.1 % (0-2); EOSINOPHILS 0.7 % (0-7); HEMATOCRIT 31.3 % (36.0-48.0); HEMOGLOBIN 9.9 g/dL (12-16); IMMATURE GRANULOCYTES 1.1 % (0-5); LYMPHOCYTES 3.7 % (15-50); MCH 29.6 pg (26.0-34.0); MCHC 31.6 g/dL (31.0-37.0); MCV 93.4 fL (80.0-100.0); MEAN PLATELET VOLUME 11.9 fL (7.4-10.4); MONOCYTES 3.9 % (2-11); NEUTROPHILS 90.5 % (40-80); PLATELET COUNT 221 10x3/uL (130-400); RBC 3.35 10x6/uL (4.00-5.40); RDW 16.2 % (11.5-14.5); WBC 11.4 10x3/uL (4.8-10.8)
[2017-01-10 07:00] LABS: ALBUMIN 2.1 g/dL (3.4-5.0); ALKALINE PHOSPHATASE 141 U/L (46-116); ALT (SGPT) 21 U/L (10-68); CALCIUM 9.2 mg/dL (8.5-10.1); CARBON DIOXIDE 21.8 mmol/L (21.0-32.0); CHLORIDE - SERUM 101 mmol/L (98-107); POTASSIUM - SERUM 4.2 mmol/L (3.5-5.1); SODIUM 134 mmol/L (136-145); UREA NITROGEN 9 mg/dL (7-18); eGFR NON AFRICAN AMERICAN 82 mL/min (90-120)
[2017-01-10 07:01] LABS: CALC OSMOLALITY 265 mosm/kg (275-300); CREATININE - SERUM 0.8 mg/dL (0.6-1.3); GLUCOSE 74 mg/dL (74-106)
[2017-01-10 08:00] VITALS: BP 108/77
--- NOTE | 2017-01-10 11:06 | NUR ---
PTS L.AC PIV WAS LEAKING. CATHETER HALF WAY OUT. D/C WITH CATHETER TIP FULLY INTACT. NEW 20 GUAGE PLACED INTO L.FA X1 STICK. NEW TUBING PROVIDED AND INITIATED PTS IVPB DIFLUCAN. PT MOANING AND GROANING AND IN A LOT OF PAIN ALL OVER. PROVIDED PT WITH PRN PAIN MEDICATION AND WILL LET IT TRY TO TAKE EFFECT. PT VOICED THANKS AND IS GOING TO TRY AND REST. CL IN REACH, BED IN LOWEST, SIDE RAILS X2. WILL CPOC.
[2017-01-10 11:13] LABS: CRYPTO AG - CSF Negative (Negative)
[2017-01-10 12:00] VITALS: BP 107/73
--- NOTE | 2017-01-10 12:42 | NUR ---
SCDS APPLIED BILAT FOR DVT PROPHYLACTIC AND PROVIDED PT WITH HEAT PACK TO HER NECK FOR CONSTANT ACHING. CL IN REACH, BED IN LOWEST, SIDE RAILS X2. WILL CPOC.
[2017-01-10 13:50] LABS: CKMB 0.2 U/L (0.0-3.6); CREATINE KINASE 18 UL (21-215); TROPONIN-I < 0.017 ng/mL (0.000-0.060)
--- NOTE | 2017-01-10 16:33 | NUR ---
URINE SAMPLE COLLECTED AND SENT TO LAB.
[2017-01-10 17:36] LABS: CKMB 0.1 U/L (0.0-3.6); CREATINE KINASE 17 UL (21-215); TROPONIN-I < 0.017 ng/mL (0.000-0.060)
[2017-01-10 19:00] VITALS: BP 107/81
--- NOTE | 2017-01-10 19:10 | NUR ---
DISCONNECTED PT TO GO FOR CTA.
--- NOTE | 2017-01-10 19:25 | NUR ---
RECEIVED REPORT,WILL ASSUME CARE OF PT, CT TAKING PT,
--- NOTE | 2017-01-10 20:25 | NUR ---
GAVE NORCO 5 FOR NECK PAIN
--- NOTE | 2017-01-10 23:34 | NUR ---
ASSESSMENT COMPLETE, SEE FLOW SHEET, PT IS SLEEPING, BED IS LOW, SRX2, CALL LIGHT IN REACH, WILL CONTINUE PLAN OF CARE
[2017-01-11 00:29] LABS: CKMB 0.1 U/L (0.0-3.6); CREATINE KINASE 18 UL (21-215); TROPONIN-I < 0.017 ng/mL (0.000-0.060)
[2017-01-11 04:00] VITALS: BP 106/75
[2017-01-11 05:35] LABS: BASOPHILS 0 % (0-2); EOSINOPHILS 0 % (0-7); HEMATOCRIT 30.4 % (36.0-48.0); HEMOGLOBIN 9.7 g/dL (12-16); IMMATURE GRANULOCYTES 1.2 % (0-5); LYMPHOCYTES 4.3 % (15-50); MCH 29.7 pg (26.0-34.0); MCHC 31.9 g/dL (31.0-37.0); MEAN PLATELET VOLUME 11.8 fL (7.4-10.4); MONOCYTES 2.9 % (2-11); NEUTROPHILS 91.6 % (40-80); PLATELET COUNT 213 10x3/uL (130-400); RBC 3.27 10x6/uL (4.00-5.40); RDW 16.5 % (11.5-14.5)
[2017-01-11 05:36] LABS: WBC 3.5 10x3/uL (4.8-10.8)
[2017-01-11 06:18] LABS: ALBUMIN 2.1 g/dL (3.4-5.0); ALKALINE PHOSPHATASE 143 U/L (46-116); ALT (SGPT) 20 U/L (10-68); CALCIUM 8.9 mg/dL (8.5-10.1); CARBON DIOXIDE 23.3 mmol/L (21.0-32.0); CHLORIDE - SERUM 105 mmol/L (98-107); CREATININE - SERUM 0.6 mg/dL (0.6-1.3); POTASSIUM - SERUM 4.8 mmol/L (3.5-5.1); SODIUM 138 mmol/L (136-145); UREA NITROGEN 11 mg/dL (7-18); eGFR NON AFRICAN AMERICAN > 90 mL/min (90-120)
[2017-01-11 06:29] LABS: CALC OSMOLALITY 276 mosm/kg (275-300); GLUCOSE 140 mg/dL (74-106)
--- NOTE | 2017-01-11 07:30 | NUR ---
INTRODUCED MYSELF TO PT PRIMARY RN FOR TODAYS SHIFT. AM ROUNDS COMPLETED. PT RESTING QUIETLY IN BED AT THIS TIME. CL IN REACH, BED IN LOWEST, SIDE RAILS X2. WILL CPOC.
[2017-01-11 08:00] VITALS: BP 106/78
--- NOTE | 2017-01-11 09:00 | NUR ---
PT SITTING UP IN BED AND IS VERY NAUSEATED. PROVIDED PT WITH PRN ZOFRAN AND A VOMIT BAG. PT VOMITED 120ML OF YELLOW LIQUID. CHANGED OUT LINENS AND PROVIDED PT WITH FRESH BRIEF PT WAS GOING TO TRY TO GET OOB TO USE BR BUT FELT DIZZY AND DECIDED TO USE BEDPAN, VOIDED 400ML OF CLEAR CONCENTRATED URINE. PT RESTING AND DENIES ANY FURTHER NEEDS AT THIS TIME. CL IN REACH, BED IN LOWEST, SIDE RAILS X2. WILL CPOC.
[2017-01-11 12:00] VITALS: BP 102/70
[2017-01-11 16:00] VITALS: BP 110/75
--- NOTE | 2017-01-11 16:48 | NUR ---
Patient Name: PEPE BOLTON Admission Status: ER Accout number: [id number] Admission Date: 01-04-2017 : 1970 Admission Diagnosis:PNEUMONIA, UNSPECIFIED ORGANISM Attending: SANTY PENNY Current LOS: 7 Anticipated DC Date: Planned Disposition: Home Primary Insurance: [place] PRIVATE OPTIONS [facility] Discharge Planning Comments: * Is the patient Alert and Oriented? Yes 0 * How many steps to enter\exit or inside your home? 3 0 * PCP DR. APPLE 0 * Pharmacy [facility] IN [place] 0 * Preadmission Environment Home with Family 0 * ADLs Partial Dependent 0 * Partial ADLs (Assistance needed) Bathing Medication Management 0 * Equipment None 0 * Other Equipment NO MEDICAL EQUIPMENT PROVIDER PREFERENCE 0 * List name and contact numbers for known caregivers / representatives who currently or will assist patient after discharge: [facility], SISTER, 0 * Community resources currently utilized None 0 * Please name any agencies selected above. NONE 0 * Additional services required to return to the preadmission environment? No 0 * Can the patient safely return to the preadmission environment? Yes 0 * Has this patient been hospitalized within the prior 30 days at any hospital? No 0 CM MET WITH PT IN ROOM TO DISCUSS DISCHARGE PLANNING AND NEEDS. PT REPORTS LIVING AT HOME DEPENDENTLY WITH HER ADULT SISTER WHO ASSISTS WITH BATHING WHEN PT DOES REQUIRE THAT HELP AND ALSO MANAGES PT'S MEDICATIONS. PT HAS NO MEDICAL EQUIPMENT AND NO OUTSIDE SERVICES ASSISTING IN THE HOME. CM DISCUSSED AVAILABILITY OF HOME HEALTH, REHAB SERVICES AND MEDICAL EQUIPMENT. PT DENIES REHAB OR HOME HEALTH NEEDS, THINKS SHE MIGHT NEED OXYGEN FOR DISCHARGE HOME. CM EXPLAINED THAT PT WILL BE TESTED AND IF QUALIFIED, CM WILL ARRANGE. PT HAS NOT PROVIDER PREFERENCE, REPORTS HER SISTER WILL PICK HER UP FOR DISCHARGE HOME. CM TO FOLLOW AND ASSIST IF NEEDED. Rat Trapper: Yair Guerrero
--- NOTE | 2017-01-11 18:47 | NUR ---
PT RESTING QUIETLY IN BED STATES SHE WAS ABLE TO FINALLY EAT AND KEEP STUFF DOWN PT ATE 100% OF HER VEGETABLE SOUP AND CRACKERS. PT STATES THE SCDS ARE HELPING AND SHE IS FEELING BETTER OVERALL. PT DENIES ANY CURRENT NEEDS. WILL CTM.
--- NOTE | 2017-01-11 19:49 | NUR ---
RECEIVED REPORT, WILL ASSUME CARE OF PT, PT SLEEPING, BED IS LOW, SRX2, CALL LIGHT IN REACH, WILL CONTINUE PLAN OF CARE
[2017-01-12] VITALS: BP 127/86
[2017-01-12 04:00] VITALS: BP 130/94
--- NOTE | 2017-01-12 05:08 | NUR ---
ASSESSMENT COMPLETE, SEE FLOWSHEET, PT IS SLEEPING, NO DISTRESS NOTICED, BED IS LOW, SRX2, CALL LIGHT IN REACH, WILL CONTINUE PLAN OF CARE
[2017-01-12 05:09] LABS: BASOPHILS 0 % (0-2); EOSINOPHILS 0 % (0-7); HEMATOCRIT 31.2 % (36.0-48.0); HEMOGLOBIN 9.8 g/dL (12-16); IMMATURE GRANULOCYTES 1.3 % (0-5); LYMPHOCYTES 5.2 % (15-50); MCH 29.6 pg (26.0-34.0); MCHC 31.4 g/dL (31.0-37.0); MCV 94.3 fL (80.0-100.0); MEAN PLATELET VOLUME 11.8 fL (7.4-10.4); NEUTROPHILS 88.5 % (40-80); PLATELET COUNT 223 10x3/uL (130-400); RBC 3.31 10x6/uL (4.00-5.40); RDW 16.7 % (11.5-14.5); WBC 3.8 10x3/uL (4.8-10.8)
[2017-01-12 05:34] LABS: ALKALINE PHOSPHATASE 128 U/L (46-116); ALT (SGPT) 16 U/L (10-68); BILIRUBIN - TOTAL 0.13 mg/dL (0.2-1.3); CALC OSMOLALITY 270 mosm/kg (275-300); CALCIUM 8.8 mg/dL (8.5-10.1); CARBON DIOXIDE 27.4 mmol/L (21.0-32.0); CHLORIDE - SERUM 102 mmol/L (98-107); CREATININE - SERUM 0.5 mg/dL (0.6-1.3); GLUCOSE 126 mg/dL (74-106); LDH 329 U/L (81-234); POTASSIUM - SERUM 4.9 mmol/L (3.5-5.1); PROTEIN - SERUM 5.8 g/dL (6.4-8.2); SODIUM 135 mmol/L (136-145); UREA NITROGEN 10 mg/dL (7-18); eGFR NON AFRICAN AMERICAN > 90 mL/min (90-120)
--- NOTE | 2017-01-12 07:30 | NUR ---
REPORT RECIEVED. RR EVEN AND UNLABORED. INTRODUCED SELF AND PLACED NAME ON WHITE BOARD. SCDS ON PT. O2 BEING DELIEVED VIA NC AT 5L. ASSESSMENT PERFORMED. PT REQUESTED SHOWER TODAY. BROUGHT SUPPLIES INTO ROOM AND EXPLAINED THAT WE WILL ASSIST PT WITH SHOWER AFTER HER IV PIGGBACK FINISHES INFUSING. WILL CTM.
[2017-01-12 08:00] VITALS: BP 116/81
--- NOTE | 2017-01-12 09:00 | NUR ---
PT REPORTING DRY-HEAVING. GAVE ZOFRAN PRN. WILL CTM.
[2017-01-12 12:00] VITALS: BP 117/87
--- NOTE | 2017-01-12 13:55 | NUR ---
Nutrition Follow Up: Pt stated that her appetite is decreased but she feels that it is slowly improving. She said that she does not like Ensure/Boost. She requested veg soup and grilled cheese tonight - will honor requests. Encouraged pt to write in food preferences on menu. Pt requested ice cream with meals - will honor. Pt is eating 15% meal avg on an AHA diet. +BM 01/06/17 - no BM x 6 days. Wt stable. Labs reviewed. Meds noted including Prednisone. Will change diet to regular to encourage po intake. Will honor food preferences and provide selective menus. Pt may benefit from an appetite stimulant. RD following.
--- NOTE | 2017-01-12 15:10 | NUR ---
PT TRANSFERED TO MRI, GAVE ZOFRAN PRIOR TO TRANSFER PT FEELING NAUSEATED. WILL CTM ON RETURN FROM MRI.
--- NOTE | 2017-01-12 18:09 | NUR ---
PT ASLEEP, PAIN HAS SINCE DECREASED SINCE ARRIVAL FROM MRI. IV RUNNING ABX, RR EVEN AND UNLABORED. WILL GIVE REPORT ON PT CONDITION FOR THE DAY.
--- NOTE | 2017-01-12 19:31 | NUR ---
RECEIVED REPORT, WILL ASSUME CARE OF PT, PT WANT ICE, WILL GIVE, DENIES ANY OTHER NEEDS AT THIS TIME, BED IS LOW, SRX2,CALL LIGHT IN REACH, WILL CONTINUE TO MONITOR
[2017-01-12 20:00] VITALS: BP 111/71
[2017-01-13] VITALS: BP 98/65
--- NOTE | 2017-01-13 02:54 | NUR ---
CALL LIGHT IN REACH. WILL CONTINUE WITH PLAN OF CARE. WILL CONTINUE TO MONITOR.
[2017-01-13 04:00] VITALS: BP 101/53
--- NOTE | 2017-01-13 04:12 | NUR ---
ASSESSMENT COMPLETE, SEE FLOWSHEET, PT SLEEPING, BED IS LOW, SRX2, CALL LIGHT IN REACH, WILL CONTINUE PLAN OF CARE
[2017-01-13 05:35] LABS: BASOPHILS 0 % (0-2); EOSINOPHILS 1.5 % (0-7); HEMATOCRIT 30.3 % (36.0-48.0); HEMOGLOBIN 9.8 g/dL (12-16); LYMPHOCYTES 3.1 % (15-50); MCH 30.2 pg (26.0-34.0); MCHC 32.3 g/dL (31.0-37.0); MCV 93.2 fL (80.0-100.0); MEAN PLATELET VOLUME 12.1 fL (7.4-10.4); MONOCYTES 1.7 % (2-11); NEUTROPHILS 92.7 % (40-80); PLATELET COUNT 226 10x3/uL (130-400); RBC 3.25 10x6/uL (4.00-5.40); RDW 16.9 % (11.5-14.5)
[2017-01-13 05:38] LABS: WBC 4.8 10x3/uL (4.8-10.8)
[2017-01-13 05:52] LABS: ALBUMIN 2.2 g/dL (3.4-5.0); ALKALINE PHOSPHATASE 126 U/L (46-116); ALT (SGPT) 19 U/L (10-68); CALC OSMOLALITY 272 mosm/kg (275-300); CALCIUM 9.6 mg/dL (8.5-10.1); CARBON DIOXIDE 26.9 mmol/L (21.0-32.0); CHLORIDE - SERUM 102 mmol/L (98-107); CREATININE - SERUM 0.6 mg/dL (0.6-1.3); GLUCOSE 104 mg/dL (74-106); POTASSIUM - SERUM 5.3 mmol/L (3.5-5.1); PROTEIN - SERUM 5.8 g/dL (6.4-8.2); SODIUM 137 mmol/L (136-145); UREA NITROGEN 11 mg/dL (7-18); eGFR NON AFRICAN AMERICAN > 90 mL/min (90-120)
--- NOTE | 2017-01-13 07:35 | NUR ---
ASSESSMENT COMPLETED. DENIES ANY NEEDS. O2 AT 5 L/M PER NC. LEFT FA WITH NS AT 75. TELEMERTY SHOWS SR. WILL MONITOR
[2017-01-13 09:31] VITALS: BP 118/82
[2017-01-13 20:00] VITALS: BP 116/83
--- NOTE | 2017-01-13 21:17 | NUR ---
SHIFT ASSESSMENT COMPLETE. PT IS A&O X4. SHE COMPLAINS OF NECK PAIN A 7/10 AND REQUESTS PRN PAIN MEDS. WILL ADMINISTER PROMPTLY. REPOSITIONED FOR COMFORT. S1S2 AUDIBLE, HR 90, NORMAL SINUS RHYTHM. RR IS SHALLOW WITH DIMINISHED BREATH SOUNDS BILAT. ABD IS FLAT AN NON TENDER, BS ACTIVE X4. RADIAL AND PEDAL PULSES PALP. SHE STATES THAT SHE FEELS WEAK AND THAT SHE IS SCARED TO GET OUT OF BED. INSTRUCTED HER TO PUSH HER CALL LIGHT IF SHE NEEDED TO GET UP AND THE RISK FACTORS ASSOCIATED WITH ORTHOSTATIC HYPOTENSION. SHE STATES THAT SHE UNDERSTANDS AND THAT SHE WILL USE THE CALL LIGHT. BED IN LOWEST POSITION, CALL LIGHT IN REACH. WILL CONT WITH POC.
--- NOTE | 2017-01-13 23:15 | NUR ---
ASSISTED PT TO RESTROOM. EDUCATED HER ON THE RISKS ASSOCIATED WITH ORTHOSTATIC HYPOTENSION. SHE STATEST THAT SHE UNDERSTANDS. PT BACK IN BED. NO FURTHER REQUESTS. WILL CONT TO MONITOR.
[2017-01-14] VITALS: BP 128/85
--- NOTE | 2017-01-14 02:30 | NUR ---
PT IS RESTING AT THIS TIME. NO SIGNS OF ACUTE DISTRESS NOTED. WILL CONT WITH POC.
[2017-01-14 04:00] VITALS: BP 124/84
[2017-01-14 05:49] LABS: BASOPHILS 0 % (0-2); HEMATOCRIT 31.5 % (36.0-48.0); HEMOGLOBIN 10.1 g/dL (12-16); IMMATURE GRANULOCYTES 0.9 % (0-5); LYMPHOCYTES 5.1 % (15-50); MCH 29.9 pg (26.0-34.0); MCHC 32.1 g/dL (31.0-37.0); MCV 93.2 fL (80.0-100.0); MEAN PLATELET VOLUME 11.4 fL (7.4-10.4); MONOCYTES 3.1 % (2-11); NEUTROPHILS 88.9 % (40-80); PLATELET COUNT 199 10x3/uL (130-400); RBC 3.38 10x6/uL (4.00-5.40); WBC 4.5 10x3/uL (4.8-10.8)
[2017-01-14 06:16] LABS: ALBUMIN 2.1 g/dL (3.4-5.0); ALKALINE PHOSPHATASE 117 U/L (46-116); ALT (SGPT) 17 U/L (10-68); CALC OSMOLALITY 272 mosm/kg (275-300); CALCIUM 9.2 mg/dL (8.5-10.1); CHLORIDE - SERUM 103 mmol/L (98-107); CREATININE - SERUM 0.7 mg/dL (0.6-1.3); GLUCOSE 77 mg/dL (74-106); PROTEIN - SERUM 5.7 g/dL (6.4-8.2); SODIUM 137 mmol/L (136-145); UREA NITROGEN 12 mg/dL (7-18); eGFR NON AFRICAN AMERICAN > 90 mL/min (90-120)
--- NOTE | 2017-01-14 07:00 | NUR ---
REPORT RECEIVED FROM OFF GOING NURSE. PT LYING IN BED BREATHING NORMAL AND UNLABORED. 0 S/SX OF DISTRESS/DISCOMFORT NOTED. A&OX4. DENIES PAIN. NORMAL SINUS. L FOREARM IV PATENT WITH NS AT 75ML/H. DRESSING C/D/I. CALL LIGHT IN REACH. WILL CONT POC.
[2017-01-14 09:17] VITALS: BP 101/66
[2017-01-14 12:01] VITALS: BP 104/69
--- NOTE | 2017-01-14 13:06 | NUR ---
NO CHAGNES FROM PREVIOUS ASSESSMENT. IN BED WATCHING TV WITH 0 S/SX OF DISTRESS/DISCOMFORT NOTED. BREATHING NORMAL AND UNLABORED. CALL LIGHT IN REACH. WILL CONT POC
--- NOTE | 2017-01-14 14:00 | NUR ---
Nutrition Follow Up: Pt reported that her appetite is improving. She said that she wants to get her strength back. Pt is eating 38% meal avg on a regular diet. +BM 01/06/17. Wt gain since admit noted. Labs reviewed. Meds noted including Prednisone. Rec continue current diet. Will continue to provide selective menus and honor food preferences. RD following.
[2017-01-14 16:02] VITALS: BP 94/53
--- NOTE | 2017-01-14 19:03 | NUR ---
REC REPORT, ASSUMED CARE OF PATIENT. ALERT/AWAKE WATCHING TV. ALERT/ORIENTED X 4. ON 02 AT 5L/NC. HUMAN SERVICES ASSISTANT SHOWS 92 SR. DENIES ANY NEEDS OR DISCOMFORTS. HAS CALL LIGHT AND BEDSIDE TABLE WITH PERSONAL ITEMS IN REACH.
--- NOTE | 2017-01-14 19:31 | NUR ---
REPORT GIVEN TO ON COMING RN. PT BREATHING NORMAL AND UNLABORED. 0 S/SX OF DISTRESS/DISCOMFORT NOTD. CALL LIGHT IN REACH.
[2017-01-14 20:00] VITALS: BP 98/64
--- NOTE | 2017-01-14 21:25 | NUR ---
ADMIN SCHED MEDS AND NORCO PO PER REQUEST FOR C/O NECK PAIN. REQUESTED DOOR CLOSED AND LIGHTS OUT TO SLEEP.
[2017-01-15] VITALS: BP 115/82
[2017-01-15 04:00] VITALS: BP 110/69
[2017-01-15 06:18] LABS: BASOPHILS 0 % (0-2); HEMATOCRIT 28.5 % (36.0-48.0); HEMOGLOBIN 9.2 g/dL (12-16); IMMATURE GRANULOCYTES 1.1 % (0-5); LYMPHOCYTES 4.7 % (15-50); MCH 30.2 pg (26.0-34.0); MCHC 32.3 g/dL (31.0-37.0); MCV 93.4 fL (80.0-100.0); MEAN PLATELET VOLUME 11.4 fL (7.4-10.4); MONOCYTES 2.5 % (2-11); NEUTROPHILS 89.7 % (40-80); PLATELET COUNT 183 10x3/uL (130-400); RBC 3.05 10x6/uL (4.00-5.40); RDW 17.1 % (11.5-14.5); WBC 4.4 10x3/uL (4.8-10.8)
[2017-01-15 06:22] LABS: ALBUMIN 1.9 g/dL (3.4-5.0); ALKALINE PHOSPHATASE 124 U/L (46-116); ALT (SGPT) 18 U/L (10-68); CALC OSMOLALITY 276 mosm/kg (275-300); CALCIUM 8.8 mg/dL (8.5-10.1); CARBON DIOXIDE 26.8 mmol/L (21.0-32.0); CHLORIDE - SERUM 105 mmol/L (98-107); CREATININE - SERUM 0.6 mg/dL (0.6-1.3); GLUCOSE 80 mg/dL (74-106); POTASSIUM - SERUM 3.8 mmol/L (3.5-5.1); PROTEIN - SERUM 5.1 g/dL (6.4-8.2); SODIUM 140 mmol/L (136-145); UREA NITROGEN 10 mg/dL (7-18); eGFR NON AFRICAN AMERICAN > 90 mL/min (90-120)
--- NOTE | 2017-01-15 06:35 | NUR ---
ADMIN SCHED PO MED WITH SIPS OF WATER. THE SULFA/TRIMET IV NOT IN REFRIGERATOR TO ADMIN. WILL NOTIFY PHARMACY.
--- NOTE | 2017-01-15 07:22 | NUR ---
AM ROUNDS- PT IN BED, RESP AND CLINICAL MANAGER HOME CARE AT BEDSIDE. PT DENIES ANY NEEDS AT THIS TIME. RESP EVEN AND A LITTLE LABORED O2 SAT 97% ON 4L. LT FA IV INFUSING NS @75CC/HR. BED LOW AND WHEELS LOCKED, BEDSIDE RAILS X2, CALL LIGHT IN REACH, NAD NOTED, WILL CONTINUE TO MONITOR.
[2017-01-15 08:00] VITALS: BP 134/84
--- NOTE | 2017-01-15 08:17 | NUR ---
AM MEDS GIVEN AT THIS TIME, AND 5MG OF NORCO FOR PAIN LEVEL OF 7/10. PT IN BED, EATING BREAKFAST, DENIES ANY NEEDS AT THIS TIME. CALLL LIGHT IN REACH, NAD NOTED, WILL CONTINUE TO MONITOR.
[2017-01-15 12:00] VITALS: BP 114/73
[2017-01-15 13:11] LABS: FUNGUS CULTURE RESULT 1 Candida albicans (()); FUNGUS MYCOLOGY CULTURE Preliminary report (())
[2017-01-15 16:42] VITALS: BP 95/67
--- NOTE | 2017-01-15 17:11 | NUR ---
HELPED PT TO BATHROOM AND BACK TO BED. PT FIXING TO EAT DINNER, DENIES ANY NEEDS AT THIS TIME. CALL LIGHT IN REACH, NAD NOTED, WILL CONTINUE TO MONITOR.
[2017-01-15 19:00] VITALS: BP 97/70
--- NOTE | 2017-01-15 19:27 | NUR ---
RESUMED CARE OF PT, LYING IN BED RESPIRATIONS EVEN AND UNLABORED ON 4LPM VIA NC. LEFT FOREARM INFUSING NS @ 75. 85 SR ON TELEMETRY. CALL LIGHT IN REACH. WILL CONTINUE TO MONITOR, SEE NURSE ASSESSMENT.
--- NOTE | 2017-01-15 22:38 | NUR ---
NIGHT MEDS GIVEN, NO NEEDS AT THIS TIME. WILL CONTINUE TO MONTIOR.
[2017-01-16] VITALS: BP 112/84
--- NOTE | 2017-01-16 02:10 | NUR ---
LYING IN BED WITH EYES CLOSED, CALL LIGHT IN REACH. WILL CONTINUE TO MONITOR.
[2017-01-16 04:00] VITALS: BP 120/83
--- NOTE | 2017-01-16 06:16 | NUR ---
NO CHANGES FROM PREVIOUS ASSESSMENT, CALL LIGHT IN REACH.
[2017-01-16 08:00] VITALS: BP 126/86
[2017-01-16 12:04] VITALS: BP 117/79
--- NOTE | 2017-01-16 15:00 | NUR ---
ALERT AND ORIENTED X4. SITTING UP IN CHAIR. LT FA IV INFILTRATED. DC LT FA IV TIP INTACT. JACK HERNANDEZ RESITE IV 22G LT FA SUCCESSFUL X2 ATTEMPTS. DENIES PAIN. JUAN. O2-95% WITH 4L NC. CONTINUE PLAN OF CARE. CHAIR LOCKED. CALL LIGHT IN REACH. SINUS TACH 104bpm ON TELEMETRY.
[2017-01-16 16:00] VITALS: BP 117/78
--- NOTE | 2017-01-16 17:09 | NUR ---
ALERT AND ORIENTED X4. AMBULATES BACK TO BED FROM CHAIR. IV ANTIBIOTICS INFUSING ORDERED. DENIES ANY NEEDS. BED LOCKED AND LOW. CALL LIGHT IN REACH. TWO SIDERAILS UP.
--- NOTE | 2017-01-16 19:27 | NUR ---
RESUMED CARE OF PT, LYING IN BED RESPIRATIONS EVEN AND UNLABORED ON 3LPM VIA NC. 91 SR ON TELEMETRY. LEFT FOREARM INFUSING NS @ 75. NO NEEDS AT THIS TIME, CALL LIGHT IN REACH. WILL CONTINUE TO MONITOR. SEE NURSE ASSESSMENT.
[2017-01-16 20:00] VITALS: BP 98/62
[2017-01-17] VITALS: BP 117/75
[2017-01-17 04:00] VITALS: BP 120/84
[2017-01-17 10:34] VITALS: BP 125/79
[2017-01-17 12:00] VITALS: BP 114/73
[2017-01-17 16:34] VITALS: BP 100/65
--- NOTE | 2017-01-17 18:26 | NUR ---
ALERT AND ORIENTED X4. RESTING IN BED. NO CHANGE. DENIES ANY NEEDS AT THIS TIME. BED LOCKED AND LOW. CALL LIGHT IN REACH. TWO SIDERAILS UP.
[2017-01-17 19:00] VITALS: BP 92/62
--- NOTE | 2017-01-17 19:32 | NUR ---
PT RESTING IN BED ON RIGHT SIDE. PT ASKS FOR A MILK AND SPOON TO EAT HER CEREAL. PT RESPIRATIONS EVEN AND UNLABORED. NO S/S OF DISTRESS. BED LOW AND CALL LIGHT WITHIN REACH WILL CPOC
--- NOTE | 2017-01-17 23:42 | NUR ---
PT ASLEEP, RESPIRATIONS EVEN AND UNLABORED. NO S/S OF DISTRESS. BED LOW AND CALL LIGHT WITHIN REACH. WILL CPOC
[2017-01-18] VITALS: BP 112/73
--- NOTE | 2017-01-18 03:23 | NUR ---
PT ASLEEP. AWAKES WITH VERBAL STIMULI. PT DENIES ANY NEEDS. NO S/S OF DISTRESS. BED LOW AND CALL LIGHT WITHIN REACH. WILL CPOC
[2017-01-18 04:00] VITALS: BP 110/75
[2017-01-18 05:32] LABS: BASOPHILS 0 % (0-2); EOSINOPHILS 1.3 % (0-7); HEMATOCRIT 28.4 % (36.0-48.0); HEMOGLOBIN 9.3 g/dL (12-16); IMMATURE GRANULOCYTES 0.3 % (0-5); LYMPHOCYTES 7.5 % (15-50); MCH 30.7 pg (26.0-34.0); MCHC 32.7 g/dL (31.0-37.0); MCV 93.7 fL (80.0-100.0); MEAN PLATELET VOLUME 10.8 fL (7.4-10.4); MONOCYTES 3.2 % (2-11); NEUTROPHILS 87.7 % (40-80); PLATELET COUNT 155 10x3/uL (130-400); RBC 3.03 10x6/uL (4.00-5.40); RDW 18.6 % (11.5-14.5); WBC 3.7 10x3/uL (4.8-10.8)
[2017-01-18 05:45] LABS: CALC OSMOLALITY 275 mosm/kg (275-300); CALCIUM 8.8 mg/dL (8.5-10.1); CARBON DIOXIDE 28.1 mmol/L (21.0-32.0); CHLORIDE - SERUM 104 mmol/L (98-107); CREATININE - SERUM 0.6 mg/dL (0.6-1.3); GLUCOSE 83 mg/dL (74-106); POTASSIUM - SERUM 3.9 mmol/L (3.5-5.1); SODIUM 139 mmol/L (136-145); UREA NITROGEN 11 mg/dL (7-18); eGFR NON AFRICAN AMERICAN > 90 mL/min (90-120)
--- NOTE | 2017-01-18 06:47 | NUR ---
PT ASLEEP. RESPIRATIONS EVEN AND UNLABORED. NO S/S OF DISTRESS. PT LAYING ON HER RIGHT SIDE,. AROUSED TO VERBAL STIMULI. PT DENIES ANY NEEDS AT THIS TIME. NO S/S OF DISTRESS. WILL CPOC
--- NOTE | 2017-01-18 07:42 | NUR ---
0710-AM ROUNDING DONE WITH PATIENT RECEIVING UPDRAFT TREATMENT. ON 3L PER NC. DENIES NEEDS AT PRESENT TIME EXCEPT TO GET ON BEDPAN. VOIDS EASILY ON BEDPAN. LEFT HAND SEEN WITH NS INFUSING AT 75 CC/HR. INSTRUCTED TO CALL US FOR STOOL SAMPLE, VOICES UNDERSTANDING. ON EP, LAB VALUES ARE WNL. WILL CPOC.
[2017-01-18 08:23] VITALS: BP 116/75
--- NOTE | 2017-01-18 10:31 | NUR ---
CALLED TO ROOM AND ASSISTED TO BEDPAN.
--- NOTE | 2017-01-18 10:44 | NUR ---
PATIENT HAS A SMALL AREA TO LEFT LOWER ABDOMINAL AREA THAT IS BLEEDING WHEN WORKING WITH THERAPY. SMALL 2 X 2 AND TAPE APPLIED TO THIS. ENCOURAGED TO USE THIS EVERY HOUR X 10.
[2017-01-18 12:13] VITALS: BP 116/77
--- NOTE | 2017-01-18 12:14 | NUR ---
DENIES NEEDS AT PRESENT TIME.
--- NOTE | 2017-01-18 12:45 | NUR ---
UP IN CHAIR. ASSISTED TO BEDPAN.
--- NOTE | 2017-01-18 13:10 | NUR ---
ASSISTED BACK TO BED, NO STOOL FROM BEDPAN.
--- NOTE | 2017-01-18 13:46 | NUR ---
Patient Name: PEPE BOLTON Encounter No: [id number] : 1970 Primary Insurance: [place] PRIVATE OPTIONS [place] Anticipated DC Date: 01-19-2017 Planned Disposition: Inpatient Rehab External Planned Provider: [facility] DCP follow-up note: CM RECEIVED ORDER FOR OXYGEN TESTING, WALKER AND REHAB. CM MET WITH PT IN ROOM AND DISCUSSED REHAB OPTIONS AND DISCHARGE NEEDS. PT REPORTS SHE JUST WANTS TO GO HOME AND WILL ACCEPT HOME HEALTH. CHOICE PRESENTED, PT HAD NOT CHOICE PREFERENCE ON PROVIDER AND SIGNED CHOICE LETTER. PT HAS NO CHOICE ON PROVIDER FOR WALKER. CM CALLED TESSA PIEDRA, PT'S BOBBIN COLLECTOR AT [phone], ADVISED OF ABOVE; TESSA REPORTS PREFERRING [facility] AND WILL BE FOLLOWING PT WITH COMMUNITY CASE MANAGEMENT POST DISCHARGE. CM CALLED [facility], , PROVIDED REFERRAL TO [facility]. CM FAXED REFERRAL TO [facility] OF [facility] AT [phone]. PT CALLED CM; CM MET WITH PT IN ROOM. PT REPORTS SHE HAS CONSIDERED HER OPTIONS AND WOULD LIKE TO BE EVALUATED FOR ADMISSION TO [facility] INPATIENT REHAB PRIOR TO GOING HOME. CM CALLED CM COLUMNIST KARIS, OBTAINED ADMINISTRATIVE APPROVAL FOR THE [facility]. CM [facility]ED [facility], ; CM CALLED ELIGIO, NURSE LIAISON, , REQUESTED SCREENING. ELIGIO ADVISED THAT SOMEONE WOULD BE OVER TO EVALUATE PT. CM CALLED [facility] BOBBIN COLLECTOR, , NOTIFIED VIA VOICE MAIL OF PT'S REQUEST AND REFERRAL BEING SENT TO [facility]. PT'S PHYSICAL ADDRESS FOR DISCHARGE HOME IS [address] [place] [address]. [phone]. CM WAITING ADMISSION DETERMINATION FROM [facility]. Yair Guerrero, CASE MANAGEMENT
--- NOTE | 2017-01-18 14:17 | NUR ---
Nutrition Follow Up: Pt stated that she is feeling better and her appetite is improving. Pt is eating 72% meal avg on a regular diet. Wt loss noted. +BM 01/06/17. Labs reviewed. Meds noted including Prednisone. Rec continue current diet. RD following.
[2017-01-18 16:10] VITALS: BP 99/69
--- NOTE | 2017-01-18 16:14 | NUR ---
PATIENT HAS BEEN PASSING GAS BUT NO BM AT PRESENT TIME. WILL CONTINUE TO MONITOR.
--- NOTE | 2017-01-18 17:14 | NUR ---
Patient Name: PEPE BOLTON Encounter No: [id number] : 1970 Primary Insurance: [place] PRIVATE OPTIONS [place] Anticipated DC Date: 01-19-2017 Planned Disposition: Inpatient Rehab External Planned Provider: [facility] DCP follow-up note: CM RECEIVED CALL FROM [facility] NURSE LIAISON, , WHO ADVISED THEY WILL ACCEPT PT FOR INPATIENT REHAB AT DISCHARGE ON OR AFTER 01-19-17. PT NOTIFIED, IN AGREEMENT WITH DISCHARGE TO INPATIENT REHAB AT [facility]. FOR DISCHARGE, NURSE REPORT TO BE CALLED TO [facility] AT [phone], FAX DISCHARGE INFORMATION TO [facility] AT [phone]. [facility] TO ARRANGE VAN TRANSPORTATION. Yair Guerrero, CASE MANAGEMENT
--- NOTE | 2017-01-18 17:38 | NUR ---
STILL IN CHAIR PAST EATING SUPPER. WANTING TO GO BACK TO BED AT THIS TIME, I ENCOURAGED HER TO SIT UP A LITTLE LONGER. REPLIES THAT SHE WILL.
[2017-01-18 19:00] VITALS: BP 100/66
--- NOTE | 2017-01-18 19:30 | NUR ---
PT RESTING IN BED. RESPIRATIONS EVEN AND UNLABORED. DENIES ANY NEEDS. NO S/S OF DISTRESS. STILL TRYING TO HAVE A BM. FEELS CONSTIPATED. BED LOW CALL LIGHT IN REACH. WILL CPOC
--- NOTE | 2017-01-18 21:36 | NUR ---
PT TALKS OF BEING HAPPY THAT IN THE REHAB SHE IS GOING TO BE ABLE TO SEE HER DOG THAT SHE MISSES DEARLY. PT C/O 10/23 PAIN IN THE NECK. WILL HANG BACTRIUM SOON THE PHARMACY BRINGS IT UP. PT DENIES ANY NEEDS. NO S/S OF DISTRESS. WILL CPOC NS @ 75 O2 NC @ 3L
[2017-01-19 04:00] VITALS: BP 121/80
[2017-01-19 06:31] LABS: CALC OSMOLALITY 262 mosm/kg (275-300); CALCIUM 7.9 mg/dL (8.5-10.1); CHLORIDE - SERUM 98 mmol/L (98-107); CREATININE - SERUM 0.6 mg/dL (0.6-1.3); GLUCOSE 79 mg/dL (74-106); POTASSIUM - SERUM 4.3 mmol/L (3.5-5.1); SODIUM 132 mmol/L (136-145); UREA NITROGEN 11 mg/dL (7-18); eGFR NON AFRICAN AMERICAN > 90 mL/min (90-120)
--- NOTE | 2017-01-19 07:36 | NUR ---
PT RESTING IN BED. DENIES ANY NEEDS. NO S/S OF DISTRESS. WILL CPOC
--- NOTE | 2017-01-19 07:40 | NUR ---
Received report-pt alert and oriented, states mo bowel movement in 2 weeks. Abd soft, slightly tender with some bowel sounds. Assisted to sit upright due to shortness of breath while in side-lying position. SOB relieved with repositioning. Continues oxygen via nasal cannula at 4L. Call light in reach, able to make needs known.
[2017-01-19 07:50] VITALS: BP 118/77
--- NOTE | 2017-01-19 09:35 | NUR ---
Assisted pt to use badpan with only urination, no bowel movement.
--- NOTE | 2017-01-19 10:38 | NUR ---
Spoke with Dr. Mayberry at senior front end engineer regarding pts constipation. Physician will review meds/pt assessment and order as needed.
[2017-01-19 11:19] VITALS: BP 105/74
--- NOTE | 2017-01-19 13:50 | NUR ---
IV saline locked in order for pt to walk with physical therapy staff. Pt denies pain at this time, does not show s/s of distress. States she had a small bowel movement as result from earlier suppository and feels that she will have more results soon. Reminded that nursing staff requires stool sample per lab orders.
[2017-01-19] MEDS ORDERED: PREDNISONE20 MG PO (13:53)
[2017-01-19] MEDS ORDERED: ATROVENT 0.02%2.5 ML UPD (13:54)
[2017-01-19] MEDS ORDERED: PULMICORT0.5 MG/21 UPD (13:55)
[2017-01-19] MEDS ORDERED: BACTRIM 400-801 TAB PO ×2 (14:12→15:11)
[2017-01-19] MEDS ORDERED: BACTRIM DS TABL1 TAB PO ×2 (14:12→15:13)
--- NOTE | 2017-01-19 15:11 | NUR ---
Spoke with Eben in pharmacy to request IV Bactrim delivery to unit within next 30 minutes. Room # verified.
--- NOTE | 2017-01-19 15:12 | NUR ---
PT IN BED, WITH EYES CLOSED, RESP EVEN AND UNLABORED, NAD NOTED, CALL LIGHT IN REACH, WILL CONTINUE TO MONITOR.
--- NOTE | 2017-01-19 15:35 | NUR ---
Per foster care case manager eRji [facility] staff will call for report and ETA of transport van. Pt has no current c/o pain or s/s of distress. IV remains patent with antibiotics infusing at this time.
--- NOTE | 2017-01-19 15:42 | NUR ---
Patient Name: PEPE BOLTON Encounter No: [id number] : 1970 Primary Insurance: [place] PRIVATE OPTIONS [place] Anticipated DC Date: 01-19-2017 Planned Disposition: Inpatient Rehab External Planned Provider: [facility] DCP follow-up note: CM RECEIVED DISCHARGE ORDERS, CALLED MAGALI [facility] NURSE LIAISON, , WHO ADVISED THEY WILL ACCEPT PT FOR INPATIENT REHAB TODAY. PT NOTIFIED, IN AGREEMENT WITH DISCHARGE TO INPATIENT REHAB AT [facility]. CM FAXED DISCHARGE INFORMATION TO [facility] AT [phone]. BEDSIDE NURSE NOTIFIED. FOR DISCHARGE, [facility] ADMISSIONS TEAM WILL CALL [facility] BEDSIDE NURSE WITH NURSE REPORT INSTRUCTIONS AND TO ARRANGE VAN TRANSPORTATION. Yair Guerrero, CASE MANAGEMENT
[2017-01-19 15:46] VITALS: BP 107/73
--- NOTE | 2017-01-19 16:09 | NUR ---
Patient Name: PEPE BOLTON Encounter No: [id number] : 1970 Primary Insurance: [place] [employer]IVATE OPTIONS [place] Anticipated DC Date: 01-19-2017 Planned Disposition: Inpatient Rehab External Planned Provider: [facility] DCP follow-up note: CM RECEIVED CALL FROM [facility] WHO ASKED FOR MAR TO BE FAXED FROM TODAY. CM FAXED MAR TO [facility] REQUESTED, . NURSE REPORT TO BE CALLED TO [facility] AT [phone], PT TO ADMIT TO ROOM 307. VAN TO BUSINESS UNIT LEADER PT BETWEEN 6PM AND 6:30 PM THIS EVENING. BEDSIDE NURSE NOTIFIED. Yair Guerrero, CASE MANAGEMENT
--- NOTE | 2017-01-19 16:32 | NUR ---
Pt opens eyes, takes PO meds whole with water, then goes back to sleep. No s/s distress, no c/o pain.
--- NOTE | 2017-01-19 16:38 | NUR ---
Report given to Aurelia Galan RN at [facility]. Their staff will call again when van leaves to hot die picker patient.
--- NOTE | 2017-01-19 17:36 | NUR ---
Review discharge instructions with pt, allowing for questions, with pt verbalizing understanding, no questions. Will transport with [facility] staff.
--- NOTE | 2017-01-19 18:29 | NUR ---
IV removed, cath tip intact, bleeding controlled. Pt left with discharge instructions, paperwork for [facility], all personal belongings via wheelchair, transported by [facility] staff, [place]. Pt had no c/o pain, no s/s distress.
== END 2017-01-19 18:33 | DRG 974 ==
LOC: D.ER 17:08 → D.M2 21:56
PROVIDERS: Emergency Medicine; Family Medicine; Internal Medicine Pulmonary Disease; Student in an Organized Health Care Education/Training Program; ADMIT Family Medicine
PROC: 009U3ZZ Drainage of Spinal Canal, Percutaneous Approach (ICD-10-PCS; principal; 2017-01-05)
PROC: B01B1ZZ Fluoroscopy of Spinal Cord using Low Osmolar Contrast (ICD-10-PCS; 2017-01-05)
PROC: 0BB78ZX Excision of Left Main Bronchus, Via Natural or Artificial Opening Endoscopic, Diagnostic (ICD-10-PCS; 2017-01-06)
PROC: 0BB38ZX Excision of Right Main Bronchus, Via Natural or Artificial Opening Endoscopic, Diagnostic (ICD-10-PCS; 2017-01-06)
DX: B20 Human immunodeficiency virus [HIV] disease (principal); J18.9 Pneumonia, unspecified organism; J96.01 Acute respiratory failure with hypoxia; J44.0 Chronic obstructive pulmonary disease with (acute) lower respiratory infection; N39.0 Urinary tract infection, site not specified; B37.0 Candidal stomatitis; E46 Unspecified protein-calorie malnutrition; J44.1 Chronic obstructive pulmonary disease with (acute) exacerbation; R51 Headache; H53.149 Visual discomfort, unspecified; D50.9 Iron deficiency anemia, unspecified; Z68.20 Body mass index [BMI] 20.0-20.9, adult

== ENCOUNTER → 2017-03-02 08:34 | Outpatient (CLI) | payer MEDICAID ==
[2017-01-05 13:46] VITALS: BMI 20.3
[~2017-03-02 08:34] MED LIST changes: +ATROVENT 0.02%2.5 ML UPD; +BACTRIM 400-801 TAB PO; +BACTRIM DS TABL1 TAB PO; +PULMICORT0.5 MG/21 UPD
== END | disposition home or self-care (01) ==
LOC: D.US 03-01 09:00
DX: R79.9 Abnormal finding of blood chemistry, unspecified (principal)

== ENCOUNTER → 2017-04-04 08:10 | Outpatient (CLI) | payer MEDICAID ==
[2017-01-05 13:46] VITALS: BMI 20.3
[2017-04-04 09:12] LABS: ALBUMIN 2.9 g/dL (3.4-5.0); BILIRUBIN - DIRECT 0.08 mg/dL (0.00-0.30); BILIRUBIN - INDIRECT 0.1 mg/dL (0.00-1.00); BILIRUBIN - TOTAL 0.18 mg/dL (0.2-1.3); PROTEIN - SERUM 8.3 g/dL (6.4-8.2)
== END | disposition home or self-care (01) ==
LOC: D.LAB 03-24 08:30 → D.US 03-24 08:30 → D.LAB 03-24 09:15 → D.US 08:10
PROVIDERS: Internal Medicine Gastroenterology
DX: K76.0 Fatty (change of) liver, not elsewhere classified (principal); R94.5 Abnormal results of liver function studies

== ENCOUNTER → 2017-07-04 09:51 | Outpatient (CLI) | payer MEDICAID ==
[2017-01-05 13:46] VITALS: BMI 20.3
== END | disposition home or self-care (01) ==
LOC: D.RT 09:51
DX: J44.9 Chronic obstructive pulmonary disease, unspecified (principal)

== ENCOUNTER 2017-10-02 20:41 | Inpatient (IN) | payer MEDICAID ==
[~2017-10-02] VITALS: Ht 165.1 cm; Wt 75.9 kg
[2017-10-02 20:57] LABS: BASOPHILS 0.3 % (0-2); EOSINOPHILS 2.9 % (0-7); HEMATOCRIT 36.8 % (36.0-48.0); HEMOGLOBIN 12.3 g/dL (12-16); IMMATURE GRANULOCYTES 0.2 % (0-5); LYMPHOCYTES 37.5 % (15-50); MCH 31.1 pg (26.0-34.0); MCHC 33.4 g/dL (31.0-37.0); MCV 92.9 fL (80.0-100.0); MONOCYTES 8.4 % (2-11); NEUTROPHILS 50.7 % (40-80); PLATELET COUNT 263 10x3/uL (130-400); RBC 3.96 10x6/uL (4.00-5.40); RDW 12.8 % (11.5-14.5); WBC 12.6 10x3/uL (4.8-10.8)
[2017-10-02 21:13] LABS: ANION GAP 12.2 mmol/L (8-16); BILIRUBIN - TOTAL 0.33 mg/dL (0.2-1.3); CALCIUM 8.8 mg/dL (8.5-10.1); CARBON DIOXIDE 24.3 mmol/L (21.0-32.0); CREATININE - SERUM 0.9 mg/dL (0.6-1.3); POTASSIUM - SERUM 3.5 mmol/L (3.5-5.1); PROTEIN - SERUM 8.5 g/dL (6.4-8.2)
[2017-10-02 22:05] LABS: APPEARANCE HAZY (CLEAR); COLOR YELLOW (YELLOW); SPECIFIC GRAVITY 1.015 (1.005-1.020)
[2017-10-02 22:06] LABS: BILIRUBIN NEGATIVE (NEGATIVE); GLUCOSE NEGATIVE (NEGATIVE); KETONE NEGATIVE (NEGATIVE); NITRITE NEGATIVE (NEGATIVE); PROTEIN NEGATIVE (NEGATIVE); UROBILINOGEN NORMAL (NORMAL)
[2017-10-02 22:08] LABS: WHITE CELLS - URINE 25-50 /hpf (0-5)
[2017-10-02 22:09] LABS: BACTERIA MODERATE /hpf (NONE SEEN); RED CELLS - URINE 0-5 /hpf (0-5)
[2017-10-02] MEDS ORDERED: ATIVAN0.5 MG PO (23:14)
[2017-10-02] MEDS ORDERED: HYDROCODON-ACE1 EAC7 PO (23:15)
[2017-10-02] MEDS ORDERED: NEURONTIN 300300 MG PO (23:16)
[2017-10-03] VITALS (7 sets, daily range): BP systolic 108–167; BP diastolic 66–75; Ht 165.1 cm; Wt 75.9 kg
[2017-10-03] MEDS ORDERED: TRIMEQ PO (02:36)
[2017-10-03] MEDS ORDERED: TRIUMEQ TABLET1 EACH PO (04:13)
[2017-10-04] VITALS: BP 106/70
[2017-10-04 04:00] VITALS: BP 103/68
[2017-10-04 07:49] VITALS: BP 99/67
[2017-10-04 11:22] VITALS: BP 99/67
[2017-10-04] MEDS ORDERED: LEVAQUIN750 MG PO (15:09)
[2017-10-04] MEDS ORDERED: NICODERM C1 PATCH .3 TRANSDERM (15:09)
[2017-10-04 15:22] VITALS: BP 95/63
[2017-10-04] MEDS ORDERED: ZITHROMAX500 MG PO (15:23)
== END 2017-10-04 17:08 | disposition home or self-care (01) | DRG 975 ==
LOC: D.ER 20:41 → D.M2 22:33
PROVIDERS: Emergency Medicine
DX: B20 Human immunodeficiency virus [HIV] disease (principal); J18.9 Pneumonia, unspecified organism; J44.0 Chronic obstructive pulmonary disease with (acute) lower respiratory infection; J44.1 Chronic obstructive pulmonary disease with (acute) exacerbation; F17.203 Nicotine dependence unspecified, with withdrawal; R91.8 Other nonspecific abnormal finding of lung field; F41.9 Anxiety disorder, unspecified; F32.9 Major depressive disorder, single episode, unspecified

== ENCOUNTER → 2017-10-13 17:35 | Outpatient (CLI) | payer MEDICAID ==
[2017-10-03 15:55] VITALS: BMI 27.8
[~2017-10-13 17:35] MED LIST changes: +ATIVAN0.5 MG PO; +HYDROCODON-ACE1 EAC7 PO; +LEVAQUIN750 MG PO; +NEURONTIN 300300 MG PO; +NICODERM C1 PATCH .3 TRANSDERM; +TRIMEQ PO; +TRIUMEQ TABLET1 EACH PO; +ZITHROMAX500 MG PO
== END | disposition home or self-care (01) ==
LOC: D.LAB 14:04 → D.RT 17:35
DX: J44.9 Chronic obstructive pulmonary disease, unspecified (principal)

== ENCOUNTER → 2017-10-14 12:41 | Outpatient (CLI) | payer MEDICAID ==
[2017-10-03 15:55] VITALS: BMI 27.8
== END | disposition home or self-care (01) ==
LOC: D.LAB 10-03 09:00 → D.US 10-03 09:00 → D.RT 12:41
DX: J44.9 Chronic obstructive pulmonary disease, unspecified (principal)

== ENCOUNTER 2018-02-19 20:32 | Inpatient (IN) | payer MEDICAID ==
[~2018-02-19] VITALS: Ht 165.1 cm; Wt 86.6 kg
--- NOTE | ~2018-02-19 | MORECARE ---
CASE MANAGEMENT DISCHARGE SUMMARY PATIENT: PEPE BOLTON UNIT: [id number] ADM DATE: 02/19/18 AGE: 47 : [birth year] SEX: F ROOM/BED: D.9540 AUTHOR: AMANDO,DOC PHYSICIAN: REFERRING PHYSICIAN: BHAVIN JO MD DATE OF SERVICE: 02/27/18 Discharge Plan Patient Name: PEPE BOLTON Facility: [facility]:[place] : 1970 Planned Disposition: Home Anticipated Discharge Date: 02/24/18 Discharge Date: 02/24/2018 Expected LOS: 5 Initial Reviewer: [email or web address] Initial Review Date: 02/23/2018 Generated: 02/27/18 10:06 am Comments DCP- Discharge Planning Updated by [email or web address]: Yair Guerrero on 02/23/18 9:[address] Patient Name: PEPE BOLTON Admission Status: ER Accout number: [id number] Admission Date: 02-19-2018 : 1970 Admission Diagnosis:COUGH Attending: BHAVIN JO Current LOS: 4 Anticipated DC Date: 02-24-2018 Planned Disposition: Home Primary Insurance: MEDICAID [place] Discharge Planning Comments: * Is the patient Alert and Oriented? Yes 0 * How many steps to enter\exit or inside your home? 3 0 * PCP DR. APPLE 0 * Pharmacy [facility] IN [place] 0 * Preadmission Environment Home with Family 0 * ADLs Independent 0 * Equipment Nebulizer Oxygen 0 * Other Equipment HOME OXYGEN ONLY [facility] - PROVIDER 0 * List name and contact numbers for known caregivers / representatives who currently or will assist patient after discharge: ROBINSON KAISER, SISTER, 0 * Verbal permission to speak to the caregivers and representatives has been obtained from the patient. N/A 0 * Community resources currently utilized None 0 * Please name any agencies selected above. NONE 0 * Additional services required to return to the preadmission environment? No 0 * Can the patient safely return to the preadmission environment? Yes 0 * Has this patient been hospitalized within the prior 30 days at any hospital? No 0 CM MET WITH PT IN ROOM TO DISCUSS DISCHARGE PLANNING AND NEEDS. PT REPORTS LIVING AT HOME INDEPENDENTLY WITH ADULT DAUGHTER. PT HAS NEBULIZER AND HOME OXYGEN FROM [facility]; PT DID HAVE PORTABLE OXYGEN BUT DID NOT NEED IT ANY LONGER AND [facility] PICKED IT UP. PT HAS NO OUTSIDE SERVICES ASSISTING IN THE HOME. CM DISCUSSED AVAILABILITY OF HOME HEALTH, REHAB SERVICES AND MEDICAL EQUIPMENT. PT DENIES DISCHARGE NEEDS, REPORTS HER FAMILY WILL PICK HER UP FOR DISCHARGE HOME. PT PLANS TO DISCHARGE HOME WITH DAUGHTER, FAMILY TO TRANSPORT, DENIES CURRENT DISCHARGE NEEDS. CM TO FOLLOW AND ASSIST IF NEEDED. Jukebox Route Driver: Yair Guerrero DCPIA - Discharge Planning Initial Assessment Updated by [id number]: Yair Guerrero on 02/23/18 9:59 am * Is the patient Alert and Oriented? Yes * How many steps to enter\exit or inside your home? * PCP DR. APPLE * Pharmacy [facility] IN [place] * Preadmission Environment Home with Family * ADLs Independent * Equipment Nebulizer Oxygen * Other Equipment HOME OXYGEN ONLY [facility] - PROVIDER * List name and contact numbers for known caregivers / representatives who currently or will assist patient after discharge: ROBINSON KAISER, SISTER, * Verbal permission to speak to the caregivers and representatives has been obtained from the patient. N/A * Community resources currently utilized None * Please name any agencies selected above. NONE * Additional services required to return to the preadmission environment? No * Can the patient safely return to the preadmission environment? Yes * Has this patient been hospitalized within the prior 30 days at any hospital? No Last DP export: 02/23/18 9:03 Patient Name: PEPE BOLTON Page [id number] at 0906 All edits/amendments must be made on the electronic document DICTATION DATE: 02/27/18904 PLAY WRITER: STEVO 02/27/18904 RPT#: [id number] DC DATE:02/24/18 STATUS: DIS IN [facility] [address] [place] [address] END OF REPORT
[2018-02-19 21:09] LABS: BASOPHILS 0.2 % (0-2); HEMATOCRIT 37.1 % (36.0-48.0); HEMOGLOBIN 12.5 g/dL (12-16); IMMATURE GRANULOCYTES 0.3 % (0-5); LYMPHOCYTES 44.7 % (15-50); MCH 31.9 pg (26.0-34.0); MCHC 33.7 g/dL (31.0-37.0); MCV 94.6 fL (80.0-100.0); MEAN PLATELET VOLUME 10.5 fL (7.4-10.4); MONOCYTES 6.9 % (2-11); NEUTROPHILS 44.9 % (40-80); RBC 3.92 10x6/uL (4.00-5.40); RDW 12.4 % (11.5-14.5); WBC 10.7 10x3/uL (4.8-10.8)
[2018-02-19 21:11] LABS: PLATELET COUNT 182 10x3/uL (130-400)
[2018-02-19 21:23] LABS: ALBUMIN 2.8 g/dL (3.4-5.0); ALKALINE PHOSPHATASE 81 U/L (46-116); ALT (SGPT) 12 U/L (10-68); BILIRUBIN - TOTAL 0.25 mg/dL (0.2-1.3); CALC OSMOLALITY 275 mosm/kg (275-300); CALCIUM 8.3 mg/dL (8.5-10.1); CARBON DIOXIDE 23.6 mmol/L (21.0-32.0); CHLORIDE - SERUM 104 mmol/L (98-107); CREATININE - SERUM 0.8 mg/dL (0.6-1.3); GLUCOSE 106 mg/dL (74-106); POTASSIUM - SERUM 3.2 mmol/L (3.5-5.1); PROTEIN - SERUM 7.9 g/dL (6.4-8.2); SODIUM 139 mmol/L (136-145); UREA NITROGEN 8 mg/dL (7-18); eGFR NON AFRICAN AMERICAN 81 mL/min (90-120)
[2018-02-19 21:33] LABS: PRO BNP 103 pg/mL (0-125)
[2018-02-19 21:44] LABS: TROPONIN-I < 0.017 ng/mL (0.000-0.060)
[2018-02-19 21:51] LABS: APPEARANCE CLEAR (CLEAR); BILIRUBIN NEGATIVE (NEGATIVE); COLOR YELLOW (YELLOW); GLUCOSE NEGATIVE (NEGATIVE); KETONE NEGATIVE (NEGATIVE); NITRITE NEGATIVE (NEGATIVE); PROTEIN 1+ mg/dL (NEGATIVE); UROBILINOGEN NORMAL (NORMAL)
[2018-02-19 21:56] LABS: WHITE CELLS - URINE 0-5 /hpf (0-5)
[2018-02-19 21:58] LABS: BACTERIA FEW /hpf (NONE SEEN)
[2018-02-19 22:22] VITALS: BP 107/63
[2018-02-19 23:58] VITALS: BP 116/69
[2018-02-20 01:08] VITALS: BP 116/72; BMI 31.3
[2018-02-20] MEDS ORDERED: ALBUTEROL SULF8.5 GM INH (01:26)
[2018-02-20] MEDS ORDERED: NEURONTIN 300300 MG PO (01:28)
[2018-02-20] MEDS ORDERED: LEXAPRO10 MG PO (01:29)
[2018-02-20] MEDS ORDERED: CYCLOBENZAPRINE10 MG PO (01:31)
[2018-02-20] MEDS ORDERED: TRIUMEQ TABLET1 EACH PO (01:32)
[2018-02-20] MEDS ORDERED: PHENERGAN25 M1 PO (01:33)
[2018-02-20 06:36] VITALS: BP 112/70
[2018-02-20 07:30] VITALS: Ht 165.1 cm; Wt 86.6 kg
[2018-02-20 08:51] VITALS: BP 118/70
[2018-02-20 16:45] VITALS: BP 114/70
[2018-02-20 21:04] VITALS: BP 108/62
[2018-02-21 00:56] VITALS: BP 95/48
[2018-02-21 04:22] VITALS: BP 101/46
[2018-02-21 05:22] LABS: BASOPHILS 0 % (0-2); EOSINOPHILS 0 % (0-7); HEMATOCRIT 31.6 % (36.0-48.0); HEMOGLOBIN 10.4 g/dL (12-16); IMMATURE GRANULOCYTES 0.4 % (0-5); LYMPHOCYTES 12.1 % (15-50); MCH 31.2 pg (26.0-34.0); MCHC 32.9 g/dL (31.0-37.0); MCV 94.9 fL (80.0-100.0); MEAN PLATELET VOLUME 11.2 fL (7.4-10.4); MONOCYTES 3.7 % (2-11); NEUTROPHILS 83.8 % (40-80); PLATELET COUNT 195 10x3/uL (130-400); RBC 3.33 10x6/uL (4.00-5.40); RDW 12.4 % (11.5-14.5)
[2018-02-21 05:26] LABS: WBC 7.9 10x3/uL (4.8-10.8)
[2018-02-21 05:54] LABS: CALCIUM 8.2 mg/dL (8.5-10.1); CARBON DIOXIDE 19.8 mmol/L (21.0-32.0); CREATININE - SERUM 0.9 mg/dL (0.6-1.3)
[2018-02-21 06:10] LABS: POTASSIUM - SERUM 2.8 mmol/L (3.5-5.1)
[2018-02-21 07:49] VITALS: BP 126/86
[2018-02-21 11:27] VITALS: BP 116/63
[2018-02-21 18:17] VITALS: BP 128/86
[2018-02-21 20:29] VITALS: BP 142/67
[2018-02-22 01:10] VITALS: BP 128/58
[2018-02-22 06:18] VITALS: BP 117/72
[2018-02-22 11:00] VITALS: BP 140/78
[2018-02-22 12:00] VITALS: BP 140/78
[2018-02-22 18:37] VITALS: BP 128/58
[2018-02-22 19:00] VITALS: BP 153/80
[2018-02-23 00:55] VITALS: BP 148/66
[2018-02-23 07:08] VITALS: BP 136/85
[2018-02-23 08:47] VITALS: BP 153/80
[2018-02-23 11:06] VITALS: BP 140/67
[2018-02-23 16:17] VITALS: BP 130/81
[2018-02-23 22:25] VITALS: BP 129/79
[2018-02-24 02:17] VITALS: BP 130/68
[2018-02-24 05:59] VITALS: BP 129/62
[2018-02-24] MEDS ORDERED: ZITHROMAX250 MG PO (08:03)
[2018-02-24] MEDS ORDERED: PREDNISONE20 MG PO (08:05)
[2018-02-24] MEDS ORDERED: SINGULAIR10 MG PO (08:05)
[2018-02-24] MEDS ORDERED: MUCINEX DM ER1 EAC1 PO (08:06)
[2018-02-24] MEDS ORDERED: BENZONATATE200 MG PO (08:06)
[2018-02-24 08:14] VITALS: BP 142/60
== END 2018-02-24 11:00 | disposition home or self-care (01) | DRG 974 ==
LOC: D.ER 20:32 → D.M2 23:39
PROVIDERS: Family Medicine
DX: B20 Human immunodeficiency virus [HIV] disease (principal); J18.9 Pneumonia, unspecified organism; J96.21 Acute and chronic respiratory failure with hypoxia; J44.0 Chronic obstructive pulmonary disease with (acute) lower respiratory infection; J44.1 Chronic obstructive pulmonary disease with (acute) exacerbation; K76.0 Fatty (change of) liver, not elsewhere classified; F41.9 Anxiety disorder, unspecified; F32.9 Major depressive disorder, single episode, unspecified; J30.9 Allergic rhinitis, unspecified; M19.90 Unspecified osteoarthritis, unspecified site; Z87.891 Personal history of nicotine dependence

== ENCOUNTER 2018-06-16 01:13 | Inpatient (IN) | payer MEDICAID ==
[~2018-06-16] VITALS: Ht 165.1 cm; Wt 85.3 kg
[~2018-06-16 01:13] MED LIST changes: +ALBUTEROL SULF8.5 GM INH; +BENZONATATE200 MG PO; +CYCLOBENZAPRINE10 MG PO; +MUCINEX DM ER1 EAC1 PO; +PHENERGAN25 M1 PO; +SINGULAIR10 MG PO; +ZITHROMAX250 MG PO
[2018-06-16 01:49] LABS: BASOPHILS 0.6 % (0-2); EOSINOPHILS 3.7 % (0-7); HEMATOCRIT 38.5 % (36.0-48.0); IMMATURE GRANULOCYTES 0.2 % (0-5); LYMPHOCYTES 38.3 % (15-50); MCHC 33.8 g/dL (31.0-37.0); MCV 91.9 fL (80.0-100.0); MEAN PLATELET VOLUME 10.6 fL (7.4-10.4); NEUTROPHILS 49.2 % (40-80); RBC 4.19 10x6/uL (4.00-5.40); RDW 12.7 % (11.5-14.5); WBC 12.8 10x3/uL (4.8-10.8)
[2018-06-16 01:54] LABS: PLATELET COUNT 302 10x3/uL (130-400)
[2018-06-16 02:00] LABS: APTT 35.7 SECONDS (22.8-39.4); INR 0.96 (0.85-1.17); PROTIME 12.3 SECONDS (11.6-15.0)
[2018-06-16 02:12] LABS: ALBUMIN 3.3 g/dL (3.4-5.0); ALKALINE PHOSPHATASE 101 U/L (46-116); ALT (SGPT) 13 U/L (10-68); BILIRUBIN - TOTAL 0.25 mg/dL (0.2-1.3); CALC OSMOLALITY 276 mosm/kg (275-300); CALCIUM 9.2 mg/dL (8.5-10.1); CARBON DIOXIDE 24.3 mmol/L (21.0-32.0); CHLORIDE - SERUM 103 mmol/L (98-107); CREATININE - SERUM 0.9 mg/dL (0.6-1.3); POTASSIUM - SERUM 3.8 mmol/L (3.5-5.1); PROTEIN - SERUM 8.4 g/dL (6.4-8.2); SODIUM 140 mmol/L (136-145); UREA NITROGEN 8 mg/dL (7-18); eGFR NON AFRICAN AMERICAN 71 mL/min (90-120)
[2018-06-16 02:13] LABS: GLUCOSE 104 mg/dL (74-106)
[2018-06-16 02:15] LABS: CKMB 0.7 U/L (0.0-3.6); CREATINE KINASE 86 UL (21-215); PRO BNP 140 pg/mL (0-125)
[2018-06-16 02:17] LABS: TROPONIN-I < 0.017 ng/mL (0.000-0.060)
--- NOTE | 2018-06-16 07:15 | NUR ---
PT IN BED. RESTING QUIETLY. ALERT AND ORIENTED. FREQUENT DRY HACKING COUGH. ROOM AIR. PT IS UP ADLIB. DAUGHTER AT BEDSIDE. PT HAS NO FURTHER NEEDS AT THIS TIME. BED LOW. CL IN REACH.
[2018-06-16 08:45] VITALS: BP 112/78
[2018-06-16 12:01] VITALS: BP 118/72
[2018-06-16 13:44] VITALS: Ht 165.1 cm; Wt 85.3 kg
--- NOTE | 2018-06-16 14:57 | NUR ---
PT UP WALKING HALLWAY.
--- NOTE | 2018-06-16 15:17 | NUR ---
PT BROUGHT HOME MED TRIUMEQ AND WANTS IT STARTED FOR HERE. CALLED AND SPOKE WITH DR. PATTERSON'S NURSE AND THEY TSATED THAT'S FINE. MEDICATION TAKEN DOWN TO PHARMACY.
--- NOTE | 2018-06-16 15:24 | NUR ---
TRIUMEQ MEDICATION TAKEN DOWN TO PHARMACY AND GIVEN TO JEANNIE THE PHARMACIST.
[2018-06-16 15:57] VITALS: BP 111/79
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
[2018-06-16 20:45] VITALS: BP 110/79
[2018-06-16 21:30] VITALS: BP 110/79
[2018-06-17 03:47] VITALS: BP 114/54
[2018-06-17 05:04] LABS: BASOPHILS 0.1 % (0-2); EOSINOPHILS 0 % (0-7); HEMATOCRIT 36.4 % (36.0-48.0); HEMOGLOBIN 12.3 g/dL (12-16); IMMATURE GRANULOCYTES 0.4 % (0-5); MCHC 33.8 g/dL (31.0-37.0); MCV 91.7 fL (80.0-100.0); MEAN PLATELET VOLUME 10.5 fL (7.4-10.4); MONOCYTES 4.1 % (2-11); NEUTROPHILS 84.4 % (40-80); PLATELET COUNT 264 10x3/uL (130-400); RBC 3.97 10x6/uL (4.00-5.40); RDW 12.7 % (11.5-14.5)
[2018-06-17 05:30] LABS: ALBUMIN 2.7 g/dL (3.4-5.0); ALKALINE PHOSPHATASE 80 U/L (46-116); ALT (SGPT) 10 U/L (10-68); BILIRUBIN - TOTAL 0.08 mg/dL (0.2-1.3); CALCIUM 8.8 mg/dL (8.5-10.1); CHLORIDE - SERUM 108 mmol/L (98-107); CREATININE - SERUM 0.8 mg/dL (0.6-1.3); POTASSIUM - SERUM 3.5 mmol/L (3.5-5.1); PROTEIN - SERUM 7.2 g/dL (6.4-8.2); SODIUM 142 mmol/L (136-145); eGFR NON AFRICAN AMERICAN 81 mL/min (90-120)
[2018-06-17 05:31] LABS: CALC OSMOLALITY 286 mosm/kg (275-300); GLUCOSE 182 mg/dL (74-106); UREA NITROGEN 11 mg/dL (7-18)
--- NOTE | 2018-06-17 05:46 | NUR ---
RESTING IN BED WITH EYES CLOSED. NO S/S OF DISTRESS OBSERVED, WILL CONT. POC.
--- NOTE | 2018-06-17 07:35 | NUR ---
RECEIVED REPORT WITH PATIENT LAYING ON RIGHT SIDE WITH IV INFUSING AT 30 CC/HR TO LEFT AC. PEGNANT FEMALE ASLEEP IN CHAIR AT BEDSDIE. ON ROOM AIR. AROUSES EASILY, DENIES NEEDS. WILL MONITOR. IN REPORT, PATIENT IS HIV +.
[2018-06-17 08:46] VITALS: BP 123/78
--- NOTE | 2018-06-17 12:14 | NUR ---
CALLED TO ROOM. PATIENT STATES THAT SHE ORDERED A TUNA PLATE AND GRAPES AND DID NOT RECEIVE IT. ORDERED.
--- NOTE | 2018-06-17 13:31 | NUR ---
DR BEARD IN TO SEE PATIENT.
[2018-06-17] MEDS ORDERED: MEDROL DOSE PACK4 MG PO (13:35)
[2018-06-17] MEDS ORDERED: ZITHROMAX500 MG PO (13:36)
--- NOTE | 2018-06-17 15:41 | NUR ---
PATIENT'S HOME MEDICATION FOR HIV/AIDS GIVEN TO HER. SALINE LOCK REMOVED WITH CATH TIP INTACT. VERBAL AND WRITTEN DISCHARGE INSTRUCTIONS GIVEN TO PATIENT. DISCHARGED HOME VIA WHEELCHAIR.
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
== END 2018-06-17 15:44 | disposition home or self-care (01) | DRG 194 ==
LOC: D.ER 01:13 → D.EDHOLD 03:42 → D.M2 03:42
PROVIDERS: Family Medicine; ADMIT Family Medicine
DX: J18.9 Pneumonia, unspecified organism (principal); J98.11 Atelectasis; T59.811A Toxic effect of smoke, accidental (unintentional), initial encounter; J43.9 Emphysema, unspecified; F32.9 Major depressive disorder, single episode, unspecified; F41.9 Anxiety disorder, unspecified; Z72.0 Tobacco use; J70.5 Respiratory conditions due to smoke inhalation

== ENCOUNTER → 2018-12-12 12:11 | Outpatient (CLI) | payer MEDICARE, MEDICAID ==
[2018-06-16 13:44] VITALS: BMI 31.2
[~2018-12-12 12:11] MED LIST changes: +MEDROL DOSE PACK4 MG PO
== END | disposition home or self-care (01) ==
LOC: D.RT 11:00 → D.RAD 11:45 → D.RT 12:11
PROVIDERS: ATTEND Internal Medicine Pulmonary Disease
DX: J44.9 Chronic obstructive pulmonary disease, unspecified (principal)

== ENCOUNTER 2019-02-16 08:30 | Day surgery (SDC) | payer MEDICARE, MEDICAID ==
[2019-02-14 15:33] LABS: BASOPHILS 0.6 % (0-2); EOSINOPHILS 3.3 % (0-7); HEMATOCRIT 40.7 % (36.0-48.0); HEMOGLOBIN 13.4 g/dL (12-16); IMMATURE GRANULOCYTES 0.2 % (0-5); LYMPHOCYTES 38.8 % (15-50); MCH 32.5 pg (26.0-34.0); MCHC 32.9 g/dL (31.0-37.0); MCV 98.8 fL (80.0-100.0); MEAN PLATELET VOLUME 10.6 fL (7.4-10.4); MONOCYTES 7.6 % (2-11); NEUTROPHILS 49.5 % (40-80); PLATELET COUNT 241 10x3/uL (130-400); RBC 4.12 10x6/uL (4.00-5.40); RDW 12.9 % (11.5-14.5); WBC 11.2 10x3/uL (4.8-10.8)
[~2019-02-16] VITALS: Ht 167.6 cm; Wt 91.6 kg
[~2019-02-16 08:30] MED LIST changes: +ANORO ELLIPTA1 EACH INH
[2019-02-16] MEDS ORDERED: PROAIR (09:36)
--- NOTE | 2019-02-16 09:42 | NUR ---
0935 NOTIFIED SATELLITE COMMUNICATIONS OPERATOR JACK CAM TO REQUEST BEHAVIORAL HEALTH CONSULT. SUICIDE RISK PROCEDURES IMPLEMENTED.
[2019-02-16 09:46] VITALS: BP 136/89; Ht 167.6 cm; Wt 91.6 kg
--- NOTE | 2019-02-16 09:54 | NUR ---
DR PEREZ NOTIFIED AND REVIEWED PT'S BEHAVIOR AND ASSESSMENT RESULTS. PT IS A LOW RISK PER DR PEREZ. DR PEREZ STATED TO GIVE RESOURCES TO PATIENT AT TIME OF DISCHARGE. NO FURTHER ORDERS AT THIS TIME. RESOURCES REVIEWED WITH PT AND SHE VERBALIZED UNDERSTANDING. PATIENT VEHEMENTLY DENIES THOUGHTS OF SUICIDE AND HAS A POSITIVE OUTLOOK ON LIFE.
[2019-02-16 10:06] LABS: HCG URINE NEGATIVE (NEGATIVE)
--- NOTE | 2019-02-16 10:39 | NUR ---
4429 SPOKE WITH JEANNIE, PHARMACIST ABOUT TORADOL ORDER AND PT'S ASA ALLERGY. THERE IS A 5% CROSS SENSITIVITY OF ASA AND TORADOL. PT STATES THAT ASA CAUSES A RASH. PT HAS A HX OF ASTHMA. PT STATES SHE DOES NOT WANT TORADOL SHOT. DR OH NOTIFIED AND STATES THAT WAS FINE.
--- NOTE | 2019-02-16 12:38 | NUR ---
PATIENT AWAKE AND ALERT, MEETS ANESTHESIA DISCHARGE CRITERIA
--- NOTE | 2019-02-16 14:51 | NUR ---
1400-DISCHARGE CRITERIA MET. REMOVED IV FROM LEFT ARM WITH CATH INTACT, DISPOSED INTO SHARPS CONTAINER,COVERED SITE WITH BANDAID. REVIEWED POST OPERATIVE INSTRUCTIONS WITH PT. VERBALIZED UNDERSTANDING WITHOUT QUESTIONS OR CONCERNS. ESCORTED OUT VIA W/C WITH DAUGHTER AWAITING TO ARRIVE
--- NOTE | 2019-03-12 14:22 | OP ---
PATIENT NAME: PEPE BOLTON MEDICAL RECORD: [id number] :[birth year] LOCATION:D.OPS ADMISSION DATE: SURGEON: SANTY CONNOLLY MD DATE OF OPERATION: 02/16/2019 PREOPERATIVE DIAGNOSIS: Menorrhagia. POSTOPERATIVE DIAGNOSIS: Menorrhagia. PROCEDURE: Hysteroscopy, dilation and curettage. SURGEON: Santy Connolly MD ESTIMATED BLOOD LOSS: Minimal. ANESTHESIA: General endotracheal. INTRAVENOUS FLUIDS: Per anesthesia record. HYSTEROSCOPIC FLUID LOSS: Less than 100 cc of 0.9 normal saline. FINDINGS: 1. Grossly normal-appearing proliferative endometrium. 2. Grossly normal external genitalia, vagina and cervix. PROCEDURES: Hysteroscopy, dilation and curettage. SPECIMENS: Endometrial curettings. ESTIMATED BLOOD LOSS: Minimal. PROCEDURE IN DETAIL: The patient was taken to the operating room where general anesthesia was achieved without difficulty. The patient was prepped and draped in normal sterile fashion in the dorsal lithotomy position in the [facility]. The bladder was drained of approximately 100 cc of clear yellow urine. At this point, a Graves speculum was placed in the vagina. The cervix was identified and grasped on its anterior lip with a single tooth tenaculum. The patient was sounded to approximately 9 cm. At this point, dilation was performed to approximately 5-6 mm, at which point the hysteroscope was used to perform survey of the endometrial canal. Following hysteroscopy, a #1 curette was then used to perform fractional curettage of all 4 quadrants with a normal appearing return of tissue. Only scant bleeding was noted from the cervical os following curettage and the tenaculum was removed. The patient tolerated the procedure well, transported to postanesthesia recovery stable without incident. TRANSINT:[id number] Voice Confirmation ID: [id number] DOCUMENT ID: [id number] OPERATIVE REPORT [id number] CHEPEPE SANTY CONNOLLY MD at 1422 CC: [id number] DICTATION DATE: 03/09/19 1200 SOCK KNITTER: 03/09/19 1220 [facility] 02/16/19 [place] [id number]
== END 2019-02-16 14:00 | disposition home or self-care (01) ==
LOC: D.OPS 08:30
PROVIDERS: ATTEND Obstetrics & Gynecology
DX: N93.9 Abnormal uterine and vaginal bleeding, unspecified (principal); J44.9 Chronic obstructive pulmonary disease, unspecified; K76.0 Fatty (change of) liver, not elsewhere classified

== ENCOUNTER 2019-03-16 10:02 | Observation (INO) | payer MEDICARE, MEDICAID ==
[~2019-03-16] VITALS: Ht 167.6 cm; Wt 93.0 kg
[~2019-03-16 10:02] MED LIST changes: +PROAIR
[2019-03-16 10:50] LABS: BASOPHILS 0.8 % (0-2); EOSINOPHILS 3.9 % (0-7); HEMATOCRIT 41.8 % (36.0-48.0); HEMOGLOBIN 13.6 g/dL (12-16); IMMATURE GRANULOCYTES 0.2 % (0-5); LYMPHOCYTES 41.3 % (15-50); MCH 32.2 pg (26.0-34.0); MCHC 32.5 g/dL (31.0-37.0); MCV 98.8 fL (80.0-100.0); MEAN PLATELET VOLUME 10.7 fL (7.4-10.4); MONOCYTES 9.6 % (2-11); NEUTROPHILS 44.2 % (40-80); PLATELET COUNT 240 10x3/uL (130-400); RBC 4.23 10x6/uL (4.00-5.40); RDW 12.9 % (11.5-14.5); WBC 8.6 10x3/uL (4.8-10.8)
[2019-03-16 11:07] LABS: CALC OSMOLALITY 280 mosm/kg (275-300); CALCIUM 8.7 mg/dL (8.5-10.1); CARBON DIOXIDE 27.1 mmol/L (21.0-32.0); CHLORIDE - SERUM 106 mmol/L (98-107); CREATININE - SERUM 0.9 mg/dL (0.6-1.3); POTASSIUM - SERUM 3.8 mmol/L (3.5-5.1); SODIUM 141 mmol/L (136-145); UREA NITROGEN 9 mg/dL (7-18); eGFR NON AFRICAN AMERICAN 71 mL/min (90-120)
[2019-03-16 11:09] LABS: GLUCOSE 116 mg/dL (74-106)
[2019-03-16 11:22] LABS: ALBUMIN 3.4 g/dL (3.4-5.0); ALKALINE PHOSPHATASE 102 U/L (46-116); ALT (SGPT) 26 U/L (10-68); BILIRUBIN - TOTAL 0.48 mg/dL (0.2-1.3); CKMB 3.4 U/L (0.0-3.6); CREATINE KINASE 374 UL (21-215); MAGNESIUM - SERUM 2.1 mg/dL (1.8-2.4); PRO BNP 75 pg/mL (0-125); PROTEIN - SERUM 7.9 g/dL (6.4-8.2)
[2019-03-16 11:23] LABS: TROPONIN-I < 0.017 ng/mL (0.000-0.060)
[2019-03-16 11:24] LABS: APPEARANCE CLEAR (CLEAR); BILIRUBIN NEGATIVE (NEGATIVE); COLOR YELLOW (YELLOW); GLUCOSE NEGATIVE (NEGATIVE); KETONE NEGATIVE (NEGATIVE); NITRITE NEGATIVE (NEGATIVE); PROTEIN NEGATIVE (NEGATIVE); SPECIFIC GRAVITY 1.025 (1.005-1.020); UROBILINOGEN NORMAL (NORMAL)
--- NOTE | 2019-03-16 12:30 | NUR ---
PATIENT AWAKE AND ALERT; COLOR WNL FOR RACE; UPDATED ON PLAN OF CARE AND DELAYS IN CARE; WILL CONTINUE TO MONITOR.
[2019-03-16 12:39] VITALS: BP 122/76
--- NOTE | 2019-03-16 14:00 | NUR ---
NO NEEDS NOTED; WILL CONTINUE TO MONITOR.
--- NOTE | 2019-03-16 15:00 | NUR ---
PT AWAKE AND ALERT; COLOR WNL FOR RACE; RESPIRATIONS EVEN AND UNLABORED; NO NEEDS NOTED; UPDATED ON PLAN OF CARE AND DELAYS IN CARE; WILL CONTINUE TO MONITOR.
[2019-03-16 16:02] VITALS: BP 116/81
--- NOTE | 2019-03-16 16:20 | NUR ---
PT ARRIVED TO UNIT VIA STRETCHER. PT TRANSFERED SELF TO BED. PT IS ON O2 AT 2L VIA NC. PT IS ALERT AND ORIENTED. PT HAS NO FURTHER NEEDS AT THIS TIME. BED LOW. CL IN REACH.
--- NOTE | 2019-03-16 17:08 | NUR ---
SCD'S PLACED ON PT'S LEGS.
[2019-03-16 17:32] VITALS: BP 114/85
[2019-03-16 17:40] VITALS: BP 114/85; BMI 33.1
--- NOTE | 2019-03-16 19:05 | NUR ---
PT SITTING UP IN BED VISITING WITH HER FAMILY. SHE REPORTS IMPROVEMENT WITH THE SHORTNESS OF BREATH SHE WAS HAVING. SHE DENIES PAIN OR NEEDS. BED IS LOW AND CALL LIGHT IN REACH.
[2019-03-16 20:00] VITALS: BP 119/76
[2019-03-17] VITALS (7 sets, daily range): BP systolic 115–129; BP diastolic 67–80
[2019-03-17 03:30] LABS: BASOPHILS 0.1 % (0-2); EOSINOPHILS 0 % (0-7); HEMATOCRIT 41.1 % (36.0-48.0); HEMOGLOBIN 13.2 g/dL (12-16); IMMATURE GRANULOCYTES 0.3 % (0-5); LYMPHOCYTES 20.1 % (15-50); MCH 32.1 pg (26.0-34.0); MCHC 32.1 g/dL (31.0-37.0); MEAN PLATELET VOLUME 10.8 fL (7.4-10.4); MONOCYTES 2.3 % (2-11); NEUTROPHILS 77.2 % (40-80); PLATELET COUNT 238 10x3/uL (130-400); RBC 4.11 10x6/uL (4.00-5.40); RDW 12.8 % (11.5-14.5); WBC 9.1 10x3/uL (4.8-10.8)
[2019-03-17 03:52] LABS: BILIRUBIN - TOTAL 0.22 mg/dL (0.2-1.3); CALCIUM 8.6 mg/dL (8.5-10.1); CARBON DIOXIDE 24.5 mmol/L (21.0-32.0); CREATININE - SERUM 0.9 mg/dL (0.6-1.3); PROTEIN - SERUM 7.5 g/dL (6.4-8.2)
[2019-03-17 03:53] LABS: ANION GAP 12.9 mmol/L (8-16); POTASSIUM - SERUM 4.4 mmol/L (3.5-5.1)
--- NOTE | 2019-03-17 07:42 | NUR ---
PT AWAKE, ALERT AND ORIENTED. LYING IN BED, REQUESTS COFFEE. NO COMPLAINTS OR CONCERNS VOICED AT THIS TIME. CL IN REACH, SRX2. ALL QUESTIONS ANSWRED TO THE BEST OF MY ABILITY. NO FAMILY PRESENT AT BEDSIDE.
--- NOTE | 2019-03-17 18:02 | NUR ---
PT HAS BEEN AWAKE AND ORIENTED, UP WITHOUT ASSISTANCE. PT HAS HAD NO DIFFICULTIES. HAS HAD A SHOWER AND LINNEN CHANGE TODAY. NO COMPLAINTS OR CONCERNS, ALL QUESTIONS ANSWERD TO THE BEST OF MY ABILITY. FAMILY IN ROOM VISITING. CL IN REACH, SRX2.
--- NOTE | 2019-03-17 19:10 | NUR ---
BEDSIDE REPORT RECEIVED FROM DAY SHIFT, PT CARE ASSUMED. INTRODUCED SELF AND WROTE NAME ON BOARD. PT SITTING UP IN BED WATCHING TV, AAOX4. C/O NAUSEA, DENIES VOMITING. REPORTS GENERALIZED PAIN OF 7.5, ON A SCALE OF 0-10. DENIES ANY OTHER NEEDS AT THIS TIME. BED IN LOWEST POSITION, SR X2, CALL LIGHT WITHIN REACH. WILL CONTINUE TO MONITOR.
[2019-03-18 04:05] VITALS: BP 122/72
--- NOTE | 2019-03-18 07:20 | NUR ---
PT WOKE EASILY WHEN I CAME IN ROOM, ALERT AND ORIENTED. NO COMPLAINTS/CONCERNS, STATES SHE FEELS PRETTY GOOD TODAY. ALL QUESTIONS ANSWERED TO THE BEST OF MY ABILITY. CL IN REACH, SRX2.
[2019-03-18 08:08] VITALS: BP 111/73
[2019-03-18 11:44] VITALS: BP 133/68
[2019-03-18 16:27] VITALS: BP 123/65
--- NOTE | 2019-03-18 17:05 | NUR ---
I have reviewed this patient and I concur with the Shift Assessment completed by the Licensed Practical Nurse today this shift.
--- NOTE | 2019-03-18 18:02 | NUR ---
PT HAS BEEN AWAKE AND OREINTED THROUGHOUT THE DAY. NO COMPLAINTS/CONCERNS, ALL QUESTIONS ANSWERED. BEING WEANED OFF STERIODS SO SHE CAN GO HOME. NO FAMILY PRESENT AT THIS TIME, PT HAS BEEN TAKING TRIPS DOWNSTAIRS WITH WHEELCHAIR AID TO GET VENDING MACHINE SNACKS. CURRENTLY IN ROOM, CL IN REACH, SRX2
--- NOTE | 2019-03-18 19:23 | NUR ---
AWAKE AND ALERT WITH TX IN PROGRESS DENIES NEEDS AT THIS TIME CALL LIGHT IN REACH BED IS LOW AND LOCKED
[2019-03-18 20:20] VITALS: BP 124/61
[2019-03-19 00:37] VITALS: BP 125/67
--- NOTE | 2019-03-19 02:58 | NUR ---
I have reviewed this patient and I concur with the Shift Assessment completed by the Licensed Practical Nurse today this shift.
[2019-03-19 04:30] VITALS: BP 125/65
--- NOTE | 2019-03-19 07:14 | NUR ---
PT RESTING PEACEFULLY, BREATHS EVEN, REGULAR AND UNLABORED. NO SIGNS OR SYMPTOMS OF ACUTE DISTRESS NOTED AT THIS TIME. DID NOT FURTHER DISTURB, CL IN REACH, SRX2.
[2019-03-19 07:57] VITALS: BP 134/79
--- NOTE | 2019-03-19 10:36 | NUR ---
PT ALERT AND ORIENTED, HOPING TO LEAVE TODAY SHE STATES SHE'S VERY BORED. CL IN REACH,S RX2.
--- NOTE | 2019-03-19 10:41 | NUR ---
I have reviewed this patient and I concur with the Shift Assessment completed by the Licensed Practical Nurse today this shift.
[2019-03-19 11:08] VITALS: Ht 167.6 cm; Wt 93.0 kg
[2019-03-19 11:37] VITALS: BP 128/82
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
[2019-03-19] MEDS ORDERED: IPRAT-ALBUT 0.5-3 ML UPD (14:32)
[2019-03-19] MEDS ORDERED: CEFUROXIME500 MG PO (14:33)
[2019-03-19] MEDS ORDERED: PREDNISONE20 MG PO (14:35)
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
--- NOTE | 2019-03-19 15:57 | NUR ---
PT ESCORTED OUT VIA WHEELCAHIR TO DAUGHTER POV.
--- NOTE | 2019-03-20 14:50 | NUR ---
PATIENT TO CALL AND TELL US SHE LEFT HER HIV MEDS (TRIUMEQ) WHICH WHEN LOOKED FOR ARE IN THE CASSETTE. SHE ASKED IF [facility] CAN COME BY AND PICK THEM UP. I SAID YES LONG HE SHOWS ID FOR THEM. SHE AGREED.
--- NOTE | 2019-03-20 14:52 | NUR ---
[facility] HERE TO LEAD FIRE PROTECTION ENGINEER MEDS FOR PEPE.
== END 2019-03-19 15:57 | disposition home or self-care (01) ==
LOC: D.ER 10:02 → D.M2 15:06 → OBSVTIME 15:06 → D.ER 15:06 → D.M2 03-19 15:57
PROVIDERS: Family Medicine; ADMIT Family Medicine; ATTEND Family Medicine
DX: J43.9 Emphysema, unspecified (principal); B20 Human immunodeficiency virus [HIV] disease; F41.8 Other specified anxiety disorders

== ENCOUNTER 2019-04-05 20:56 | Inpatient (IN) | payer MEDICARE, MEDICAID ==
[~2019-04-05] VITALS: Ht 167.6 cm; Wt 92.3 kg
[~2019-04-05 20:56] MED LIST changes: +CEFUROXIME500 MG PO; +IPRAT-ALBUT 0.5-3 ML UPD
[2019-04-05 21:30] LABS: APTT 28.7 SECONDS (22.8-39.4); INR 0.96 (0.85-1.17); PROTIME 12.3 SECONDS (11.6-15.0)
[2019-04-05 21:31] LABS: BASOPHILS 0.5 % (0-2); EOSINOPHILS 2.8 % (0-7); HEMATOCRIT 40.8 % (36.0-48.0); HEMOGLOBIN 13.2 g/dL (12-16); IMMATURE GRANULOCYTES 0.2 % (0-5); LYMPHOCYTES 35.2 % (15-50); MCHC 32.4 g/dL (31.0-37.0); MCV 98.8 fL (80.0-100.0); MEAN PLATELET VOLUME 10.8 fL (7.4-10.4); MONOCYTES 9.2 % (2-11); NEUTROPHILS 52.1 % (40-80); PLATELET COUNT 259 10x3/uL (130-400); RBC 4.13 10x6/uL (4.00-5.40); WBC 6.1 10x3/uL (4.8-10.8)
[2019-04-05 21:33] LABS: CALC OSMOLALITY 269 mosm/kg (275-300); CALCIUM 8.8 mg/dL (8.5-10.1); CARBON DIOXIDE 24.8 mmol/L (21.0-32.0); CHLORIDE - SERUM 103 mmol/L (98-107); CREATININE - SERUM 0.9 mg/dL (0.6-1.3); POTASSIUM - SERUM 4.4 mmol/L (3.5-5.1); SODIUM 136 mmol/L (136-145); UREA NITROGEN 7 mg/dL (7-18); eGFR NON AFRICAN AMERICAN 71 mL/min (90-120)
[2019-04-05 21:34] LABS: GLUCOSE 103 mg/dL (74-106)
[2019-04-05 21:46] LABS: ALBUMIN 3.3 g/dL (3.4-5.0); ALKALINE PHOSPHATASE 99 U/L (46-116); ALT (SGPT) 28 U/L (10-68); BILIRUBIN - TOTAL 0.36 mg/dL (0.2-1.3); CKMB 0.8 U/L (0.0-3.6); CREATINE KINASE 144 UL (21-215); PRO BNP 71 pg/mL (0-125); PROTEIN - SERUM 8.2 g/dL (6.4-8.2)
[2019-04-05 21:47] LABS: TROPONIN-I < 0.017 ng/mL (0.000-0.060)
[2019-04-05 21:58] VITALS: BP 148/92
--- NOTE | 2019-04-05 22:20 | NUR ---
PT TO CT AT THIS TIME VIA WHEELCHAIR. SECOND IV STARTED RIGHT FOREARM 20GA
[2019-04-05 23:29] VITALS: BP 107/67
[2019-04-05 23:45] VITALS: BP 112/72
[2019-04-06] VITALS (7 sets, daily range): BP systolic 101–128; BP diastolic 54–82; Ht 167.6 cm; Wt 92.3 kg
--- NOTE | 2019-04-06 00:30 | NUR ---
PT TO ROOM VIA WHEELCHAIR, ACCOMPANIED BY HOSPITAL STAFF.
--- NOTE | 2019-04-06 01:30 | NUR ---
INTRODUCED SELF TO PT, WROTE NAME ON BOARD. PT SITTING UP IN BED, WATCHING TV, AAOX4. ASSESSMENT COMPLETED, DENIES NEEDS AT THIS TIME. BED IN LOWEST POSITION, SR X1, CALL LIGHT WITHIN REACH. WILL CONTINUE TO MONITOR.
[2019-04-06 07:04] LABS: ALBUMIN 2.9 g/dL (3.4-5.0); ANION GAP 15.8 mmol/L (8-16); BILIRUBIN - TOTAL 0.15 mg/dL (0.2-1.3); CALCIUM 8.1 mg/dL (8.5-10.1); CARBON DIOXIDE 21.5 mmol/L (21.0-32.0); CREATININE - SERUM 1.1 mg/dL (0.6-1.3); MAGNESIUM - SERUM 2.2 mg/dL (1.8-2.4); PHOSPHOROUS 3.4 mg/dL (2.5-4.9); POTASSIUM - SERUM 4.3 mmol/L (3.5-5.1); PROTEIN - SERUM 6.8 g/dL (6.4-8.2)
[2019-04-06 07:27] LABS: HEMOGLOBIN 12.2 g/dL (12-16); LYMPHOCYTES 19.3 % (15-50); MCH 31.7 pg (26.0-34.0); MEAN PLATELET VOLUME 10.7 fL (7.4-10.4); NEUTROPHILS 77.7 % (40-80); RBC 3.85 10x6/uL (4.00-5.40); RDW 12.1 % (11.5-14.5)
[2019-04-06 07:28] LABS: MCV 96.1 fL (80.0-100.0); PLATELET COUNT 187 10x3/uL (130-400); WBC 4.4 10x3/uL (4.8-10.8)
--- NOTE | 2019-04-06 07:34 | NUR ---
REPORT RECEIVED. WILL CONTINUE WITH POC. PT CURRENTLY LYING SEMI FOWLERS. CALL LIGHT W/I REACH. RR EVEN AND UNLABORED ON 4L 02. 1/2NS INFUSING @50ML/HR VIA R.FOR PIV. L.AC PIV IS SALINE LOCKED. NO S/S OF DISTRESS NOTED. PT DENIES ANY NEEDS AT THIS TIME. WILL CTM.
--- NOTE | 2019-04-06 13:43 | NUR ---
I have reviewed this patient and I concur with the Shift Assessment completed by the Licensed Practical Nurse today this shift.
--- NOTE | 2019-04-06 13:58 | MORECARE ---
CASE MANAGEMENT DISCHARGE SUMMARY PATIENT: PEPE KENDALL UNIT: [id number] ADM DATE: 04/05/19 AGE: 48 : 70 SEX: F ROOM/BED: D.6889 AUTHOR: ARUN GOEL PHYSICIAN: REFERRING PHYSICIAN: SANTY PENNY MD DATE OF SERVICE: 04/06/19 Discharge Plan Patient Name: PEPE KENDALL [facility] [facility] 1970 Planned Disposition: Home Anticipated Discharge Date: 04/09/19 Discharge Date: Expected LOS: 4 Initial Reviewer: [id number] Initial Review Date: 04/06/2019 Generated: 04/06/19 2:57 pm DCPIA - Discharge Planning Initial Assessment Updated by [id number]: Lisa Rao on 04/06/19 1:57 pm * Is the patient Alert and Oriented? Yes * How many steps to enter\exit or inside your home? Two * PCP Dr. Yo * Pharmacy [facility] in [place]. * Preadmission Environment Home with Family * ADLs Independent * Equipment Nebulizer Oxygen Rolling Walker * Other Equipment Wears O2 prn - does not have portability. [facility] * List name and contact numbers for known caregivers / representatives who currently or will assist patient after discharge: Juve Kendall - daughter - [phone] Kaylyn Canales - sister - [phone] * Verbal permission to speak to the caregivers and representatives has been obtained from the patient. Yes * Community resources currently utilized None * Additional services required to return to the preadmission environment? No * Can the patient safely return to the preadmission environment? Yes * Has this patient been hospitalized within the prior 30 days at any hospital? Yes Patient Name: PEPE KENDALL Page 13666 at 1358 All edits/amendments must be made on the electronic document DICTATION DATE: 04/06/19 1357 MAJOR GIFTS DIRECTOR: STEVO 04/06/19 1357 RPT#: [id number] DC DATE: STATUS: ADM IN [facility] [address] [place] [address] END OF REPORT
--- NOTE | 2019-04-06 14:08 | MORECARE ---
CASE MANAGEMENT DISCHARGE SUMMARY PATIENT: PEPE KENDALL UNIT: [id number] ADM DATE: 04/05/19 AGE: 48 : 70 SEX: F ROOM/BED: D.6100 AUTHOR: AMANDO,DOC PHYSICIAN: REFERRING PHYSICIAN: SANTY PENNY MD DATE OF SERVICE: 04/06/19 Discharge Plan Patient Name: PEPE KENDALL Facility: [facility]:[place] : 1970 Planned Disposition: Home Anticipated Discharge Date: 04/09/19 Discharge Date: Expected LOS: 4 Initial Reviewer: [email or web address] Initial Review Date: 04/06/2019 Generated: 04/06/19 3:08 pm Comments DCP- Discharge Planning Updated by [id number]: Lisa Rao on 04/06/19 1:[address] DC PLAN: Return home with her adult daughter independently. ANTICIPATED DC NEEDS: Denied dc needs. CM met with patient to complete initial dc planning assessment. CM educated patient on the CM role and verbal consent given by patient to complete assessment. CM verified patient's address, phone number, and emergency contact phone numbers. Patient lives at home with her adult daughter and her baby. At discharge patient plans to return home and feels this is a safe discharge. Patient reports she just stopped smoking 1 week ago. Patient was recently hospitalized for COPD. CM discussed the importance of not smoking. CM discussed talking to MD about patches, nicotine gum, or other options available to assist with smoking cessation. CM discussed availability of home health, rehab services, and medical equipment. Patient denied known discharge needs at this time. Transportation provider at discharge will be daughter in law or one of her friends. CM will continue to follow and will assist as needed with dc plans/needs. Lisa Rao RN, [facility] DCPIA - Discharge Planning Initial Assessment Updated by [id number]: Lisa Rao on 04/06/19 1:57 pm * Is the patient Alert and Oriented? Yes * How many steps to enter\exit or inside your home? Two * PCP Dr. Yo * Pharmacy [facility] in [place]. * Preadmission Environment Home with Family * ADLs Independent * Equipment Nebulizer Oxygen Rolling Walker * Other Equipment Wears O2 prn - does not have portability. DME provider is [facility]. * List name and contact numbers for known caregivers / representatives who currently or will assist patient after discharge: Juve Kendall - daughter - [phone] Kaylyn Canales - sister - [phone] * Verbal permission to speak to the caregivers and representatives has been obtained from the patient. Yes * Community resources currently utilized None * Additional services required to return to the preadmission environment? No * Can the patient safely return to the preadmission environment? Yes * Has this patient been hospitalized within the prior 30 days at any hospital? Yes Last DP export: 04/06/19 12:57 Patient Name: PEPE KENDALL Page [phone] at 1408 All edits/amendments must be made on the electronic document DICTATION DATE: 04/06/191407 DUBBING MACHINE OPERATOR: STEVO 04/06/191407 RPT#: [id number] DC DATE: STATUS: ADM IN [facility] [address] [place] [address] END OF REPORT
--- NOTE | 2019-04-06 19:14 | NUR ---
RECEIVED UP IN B/R WITH CALL LIGHT ON. C/O INCONTINENT EPISODE. ALERT AND ORIENTED X4. UP AD PURVI. O2@ 4 LITERS PER N/C. IV TO RIGHT FA WITH 1/2 NS AT 50CC/HR. ALSO, IV TO LEFT AC SL.. TELEMETRY IN PLACE. DENIES ANY OTHER NEEDS EXCEPT GOWN AND BED CHANGE.
[2019-04-07 04:30] VITALS: BP 112/64
[2019-04-07 05:33] LABS: BASOPHILS 0.2 % (0-2); EOSINOPHILS 0 % (0-7); HEMATOCRIT 38.8 % (36.0-48.0); HEMOGLOBIN 12.3 g/dL (12-16); IMMATURE GRANULOCYTES 0.3 % (0-5); LYMPHOCYTES 8.2 % (15-50); MCH 31.8 pg (26.0-34.0); MCHC 31.7 g/dL (31.0-37.0); MONOCYTES 4.6 % (2-11); NEUTROPHILS 86.7 % (40-80); PLATELET COUNT 219 10x3/uL (130-400); RBC 3.87 10x6/uL (4.00-5.40); RDW 13.1 % (11.5-14.5)
[2019-04-07 05:35] LABS: MCV 100.3 fL (80.0-100.0)
[2019-04-07 05:50] LABS: CALCIUM 8.6 mg/dL (8.5-10.1); CARBON DIOXIDE 24.4 mmol/L (21.0-32.0); CREATININE - SERUM 0.9 mg/dL (0.6-1.3); MAGNESIUM - SERUM 2.3 mg/dL (1.8-2.4); PHOSPHOROUS 2.8 mg/dL (2.5-4.9); POTASSIUM - SERUM 4.4 mmol/L (3.5-5.1)
[2019-04-07 07:53] VITALS: BP 117/62
--- NOTE | 2019-04-07 08:53 | NUR ---
AM MEDS GIVEN TO PT ALSO INFORMED PT OF NEW FOR URINE CULTURE AND RESP CULTURE, PROVIDED PT WITH COLLECTION CUPS AND PT WILL NOFIY NURSE WHEN SAMPLE ARE AVAILABLE. PT DENIES ANY NEEDS AT THIS TIME. CALL LIGHT IN REACH, NAD NOTED, WILL CONTINUE TO MONITOR.
--- NOTE | 2019-04-07 10:56 | NUR ---
GAVE 2MG OF MORPHINE FOR PAIN LEVEL OF 7/10. PT RESTING COMFORTABLY IN BED, COLLECTED URINE SAMPLE AND WILL TAKE TO LAB. PT DENIES ANY OTHER NEEDS AT THIS TIME. CALL LIGHT IN REACH, NAD NOTED, WILL CONTINUE TO MONITOR.
[2019-04-07 11:27] VITALS: BP 117/50
[2019-04-07 11:34] LABS: APPEARANCE CLEAR (CLEAR); BILIRUBIN NEGATIVE (NEGATIVE); COLOR STRAW (YELLOW); GLUCOSE 250 mg/dL (NEGATIVE); KETONE NEGATIVE (NEGATIVE); NITRITE NEGATIVE (NEGATIVE); PROTEIN NEGATIVE (NEGATIVE); UROBILINOGEN NORMAL (NORMAL)
--- NOTE | 2019-04-07 14:59 | NUR ---
LT AC IV LEAKING, D/C IV WITH CATHETER TIP INTACT. DISCONNECTED PT FROM IV SO PT COULD GET IN THE SHOWER.
[2019-04-07 15:44] VITALS: BP 114/71
--- NOTE | 2019-04-07 17:59 | NUR ---
RT FA IV LEAKING, D/C IV WITH CATHETER TIP INTACT. ATTEMPTED TO START NEW IV, STUCK PT TWICE AND UNSUCCESSFUL IV START AT THIS TIME. ASKED CHARGE NURSE TO SEE IF SHE CAN START IV.
--- NOTE | 2019-04-07 18:18 | NUR ---
22 GAUGE IV PLACED TO LEFT WRIST X 1 STICK. GOOD BLOOD RETURN, EASY FLUSH. PATIENT TOLERATED IV PLACEMENT WELL. IV SITE TAPED, DATED AND SECURED. IV IS SALINE LOCKED AND SWAB CAP INTACT. NO DISTRESS.
--- NOTE | 2019-04-07 19:58 | NUR ---
RECEIVED UP IN BED WITH EYES OPEN AND TV ON. ALERT AND ORIENTED X4. UP AD PURVI TO B/R. O2@ 4 LITERS PER N/C IN PLACE. IV TO LEFT FA WITH 1/2 NS AT 50CC/HR. TELEMETRY IN PLACE. EPISODES OF INCONTINENCE. PULL UPS AND PADS WORN. DENIES ANY NEEDS AT THIS TIME.
[2019-04-07 20:00] VITALS: BP 132/80
[2019-04-08] VITALS: BP 134/82
[2019-04-08 04:00] VITALS: BP 129/78
[2019-04-08 05:40] LABS: BASOPHILS 0.3 % (0-2); EOSINOPHILS 0 % (0-7); HEMATOCRIT 38.4 % (36.0-48.0); IMMATURE GRANULOCYTES 0.6 % (0-5); MCH 31.5 pg (26.0-34.0); MCHC 31.3 g/dL (31.0-37.0); MCV 100.8 fL (80.0-100.0); MONOCYTES 4.9 % (2-11); NEUTROPHILS 82.2 % (40-80); PLATELET COUNT 240 10x3/uL (130-400); RBC 3.81 10x6/uL (4.00-5.40); RDW 13.3 % (11.5-14.5); WBC 11.6 10x3/uL (4.8-10.8)
[2019-04-08 05:59] LABS: CALC OSMOLALITY 281 mosm/kg (275-300); CALCIUM 8.3 mg/dL (8.5-10.1); CARBON DIOXIDE 29.6 mmol/L (21.0-32.0); CHLORIDE - SERUM 106 mmol/L (98-107); CREATININE - SERUM 0.8 mg/dL (0.6-1.3); GLUCOSE 193 mg/dL (74-106); MAGNESIUM - SERUM 2.2 mg/dL (1.8-2.4); PHOSPHOROUS 2.7 mg/dL (2.5-4.9); POTASSIUM - SERUM 4.1 mmol/L (3.5-5.1); SODIUM 139 mmol/L (136-145); UREA NITROGEN 9 mg/dL (7-18); eGFR NON AFRICAN AMERICAN 81 mL/min (90-120)
--- NOTE | 2019-04-08 07:20 | NUR ---
RECIEVE REPORT. ALERT AND ORIENTED X4. RECIEVING UPDRAFT TREATMENT. DENIES ANY NEEDS. CONTINUE PLAN OF CARE AND SAFETY PRECAUTIONS.
[2019-04-08 09:33] VITALS: BP 131/87
[2019-04-08 13:32] VITALS: BP 115/58
[2019-04-08] MEDS ORDERED: SYMBICORT 16010.2 GM INH (15:42)
[2019-04-08] MEDS ORDERED: OMNICEF300 MG PO (15:43)
[2019-04-08] MEDS ORDERED: FLUTICASONE PRO16 GM NASAL (15:43)
[2019-04-08] MEDS ORDERED: MUCINEX DM ER1 EAC1 PO (15:43)
[2019-04-08] MEDS ORDERED: PREDNISONE10 MG PO (15:44)
[2019-04-08] MEDS ORDERED: SINGULAIR10 MG PO (15:44)
--- NOTE | 2019-04-08 16:33 | NUR ---
PATIENT IN A CHRONIC STABLE STATE PRIOR TO DISCHARGE.
--- NOTE | 2019-04-08 16:38 | MORECARE ---
CASE MANAGEMENT DISCHARGE SUMMARY PATIENT: PEPE KENDALL UNIT: [id number] ADM DATE: 04/05/19 AGE: 48 : 70 SEX: F ROOM/BED: D.7323 AUTHOR: ARUN GOEL PHYSICIAN: REFERRING PHYSICIAN: SANTY PENNY MD DATE OF SERVICE: 04/08/19 Discharge Plan Patient Name: PEPE KENDALL Facility: [facility]:[place] : 1970 Planned Disposition: Home Anticipated Discharge Date: 04/09/19 Discharge Date: Expected LOS: 4 Initial Reviewer: [id number] Initial Review Date: 04/06/2019 Generated: 04/08/19 5:38 pm Comments DCP- Discharge Planning Updated by [id number]: Renay Jimenez on 04/08/19 3:[address] Patient Name: PEPE KENDALL Admission Status: ER Accout number: [id number] Admission Date: 04-05-2019 : 1970 Admission Diagnosis: Attending: SANTY PENNY Current LOS: 3 Anticipated DC Date: 04-09-2019 Planned Disposition: Home Primary Insurance: [facility] MEDICARE SOLUTIONS Discharge Planning Comments: CM SPOKE WITH JEVON AT [facility], DENNIS IS BRINGING PATIENT A PORTABLE 02. I AM FAXING DOCUMENTS TO JEVON AT [facility] AND LEAVING HER A COPY IN THE CM OFFICE. IMM SIGNED. PATIENT DISCHARGING TO HOME AFTER O2 TANK DELIVERED, Quality Assurance Advisor: Renay Jimenez DCP- Discharge Planning Updated by [id number]: Lisa Rao on 04/06/19 1:[address] DC PLAN: Return home with her adult daughter independently. ANTICIPATED DC NEEDS: Denied dc needs. CM met with patient to complete initial dc planning assessment. CM educated patient on the CM role and verbal consent given by patient to complete assessment. CM verified patient's address, phone number, and emergency contact phone numbers. Patient lives at home with her adult daughter and her baby. At discharge patient plans to return home and feels this is a safe discharge. Patient reports she just stopped smoking 1 week ago. Patient was recently hospitalized for COPD. CM discussed the importance of not smoking. CM discussed talking to MD about patches, nicotine gum, or other options available to assist with smoking cessation. CM discussed availability of home health, rehab services, and medical equipment. Patient denied known discharge needs at this time. Transportation provider at discharge will be daughter in law or one of her friends. CM will continue to follow and will assist as needed with dc plans/needs. Lisa Rao RN, [facility] DCPIA - Discharge Planning Initial Assessment Updated by [id number]: Lisa Rao on 04/06/19 1:57 pm * Is the patient Alert and Oriented? Yes * How many steps to enter\exit or inside your home? Two * PCP Dr. Yo * Pharmacy [facility] in [place]. * Preadmission Environment Home with Family * ADLs Independent * Equipment Nebulizer Oxygen Rolling Walker * Other Equipment Wears O2 prn - does not have portability. DME provider is [facility]. * List name and contact numbers for known caregivers / representatives who currently or will assist patient after discharge: Juve Kendall - daughter - [phone] Kaylyn Canales - sister - [phone] * Verbal permission to speak to the caregivers and representatives has been obtained from the patient. Yes * Community resources currently utilized None * Additional services required to return to the preadmission environment? No * Can the patient safely return to the preadmission environment? Yes * Has this patient been hospitalized within the prior 30 days at any hospital? Yes Coverage Notice Reviewer: [id number] Maggi Jimenez Notice Issued Date-Time: 04/08/2019 16:30 Notice Type: IM Discharge Notice Notice Delivered To: Patient Relationship to Patient: Sanitizer Name: Delivery Method: HAND - Hand Delivered Karlene Days: Prior Verbal Notification: Recipient Understood Notice: Yes Recipient Signature: Yes Med Rec Note Co-signed by Attending: Coverage Notice Comment: Last DP export: 04/06/19 1:08 Patient Name: PEPE KENDALL Page 85735 at 1638 All edits/amendments must be made on the electronic document DICTATION DATE: 04/08/191637 ELECTRO OPTICAL ENGINEER: STEVO 04/08/191637 RPT#: [id number] DC DATE: STATUS: ADM IN [facility] [address] [place] [address] END OF REPORT
--- NOTE | 2019-04-08 16:47 | MORECARE ---
CASE MANAGEMENT DISCHARGE SUMMARY PATIENT: PEPE KENDALL UNIT: [id number] ADM DATE: 04/05/19 AGE: 48 : 70 SEX: F ROOM/BED: D.4239 AUTHOR: ARUN GOEL PHYSICIAN: REFERRING PHYSICIAN: SANTY PENNY MD DATE OF SERVICE: 04/08/19 Discharge Plan Patient Name: PEPE KENDALL Facility: [facility]:[place] : 1970 Planned Disposition: Home Anticipated Discharge Date: 04/09/19 Discharge Date: Expected LOS: 4 Initial Reviewer: [email or web address] Initial Review Date: 04/06/2019 Generated: 04/08/19 5:46 pm Comments DCP- Discharge Planning Updated by [id number]: Renay Jimenez on 04/08/19 3:[address] Patient Name: PEPE KENDALL Admission Status: ER Accout number: [id number] Admission Date: 04-05-2019 : 1970 Admission Diagnosis: Attending: SANTY PENNY Current LOS: 3 Anticipated DC Date: 04-09-2019 Planned Disposition: Home Primary Insurance: [facility] MEDICARE SOLUTIONS Discharge Planning Comments: CM SPOKE WITH JEVON AT [facility], DENNIS IS BRINGING PATIENT A PORTABLE 02. I AM FAXING DOCUMENTS TO JEOVN AT [facility] AND LEAVING HER A COPY IN THE CM OFFICE. IMM SIGNED. PATIENT DISCHARGING TO HOME AFTER O2 TANK DELIVERED, Warehouse Assistant: Renay Jimenez DCP- Discharge Planning Updated by [email or web address]: Lisa Rao on 04/06/19 1:[address] DC PLAN: Return home with her adult daughter independently. ANTICIPATED DC NEEDS: Denied dc needs. CM met with patient to complete initial dc planning assessment. CM educated patient on the CM role and verbal consent given by patient to complete assessment. CM verified patient's address, phone number, and emergency contact phone numbers. Patient lives at home with her adult daughter and her baby. At discharge patient plans to return home and feels this is a safe discharge. Patient reports she just stopped smoking 1 week ago. Patient was recently hospitalized for COPD. CM discussed the importance of not smoking. CM discussed talking to MD about patches, nicotine gum, or other options available to assist with smoking cessation. CM discussed availability of home health, rehab services, and medical equipment. Patient denied known discharge needs at this time. Transportation provider at discharge will be daughter in law or one of her friends. CM will continue to follow and will assist as needed with dc plans/needs. Lisa Rao RN, [facility] DCPIA - Discharge Planning Initial Assessment Updated by [id number]: Lisa Rao on 04/06/19 1:57 pm * Is the patient Alert and Oriented? Yes * How many steps to enter\exit or inside your home? Two * PCP Dr. Yo * Pharmacy [facility] in [place]. * Preadmission Environment Home with Family * ADLs Independent * Equipment Nebulizer Oxygen Rolling Walker * Other Equipment Wears O2 prn - does not have portability. DME provider is [facility]. * List name and contact numbers for known caregivers / representatives who currently or will assist patient after discharge: Juve Kendall - daughter - [phone] Kaylyn Canales - sister - [phone] * Verbal permission to speak to the caregivers and representatives has been obtained from the patient. Yes * Community resources currently utilized None * Additional services required to return to the preadmission environment? No * Can the patient safely return to the preadmission environment? Yes * Has this patient been hospitalized within the prior 30 days at any hospital? Yes External Providers External Provider: Danica Next Contact Date: Service Request Date: Service Type: Resolution: Reviewer: Comments: Coverage Notice Reviewer: [id number] Maggi Jimenez Notice Issued Date-Time: 04/08/2019 16:30 Notice Type: IM Discharge Notice Notice Delivered To: Patient Relationship to Patient: Plate Inspector Name: Delivery Method: HAND - Hand Delivered Karlene Days: Prior Verbal Notification: Recipient Understood Notice: Yes Recipient Signature: Yes Med Rec Note Co-signed by Attending: Coverage Notice Comment: Last DP export: 04/08/19 3:38 Patient Name: PEPE KENDALL Page 26332 at 1647 All edits/amendments must be made on the electronic document DICTATION DATE: 04/08/191645 LUMP MACHINE OPERATOR: STEVO 04/08/191645 RPT#: [id number] DC DATE: STATUS: ADM IN [facility] [address] [place] [address] END OF REPORT
--- NOTE | 2019-04-08 17:56 | NUR ---
ALERT AND ORIENTED X4. SITTING UP IN BED. FAMILY AT BEDSIDE. PORTABLE OXYGEN ARRIVES. DISCHARGE INSTRUCTIONS GIVEN VERBALLY AND WRITTEN. DISCHARGE PAPERS SIGNED ON CHART. DC LT FA IV TIP INTACT. ESCORT TO RIDE VIA WHEELCHAIR. REMAINS FREE FROM INJURY.
--- NOTE | 2019-04-09 09:18 | MORECARE ---
CASE MANAGEMENT DISCHARGE SUMMARY PATIENT: PEPE KENDALL UNIT: [id number] ADM DATE: 04/05/19 AGE: 48 : 70 SEX: F ROOM/BED: D.5825 AUTHOR: ARUN GOEL PHYSICIAN: REFERRING PHYSICIAN: SANTY PENNY MD DATE OF SERVICE: 04/09/19 Discharge Plan Patient Name: PEPE KENDALL Facility: [facility]:[place] : 1970 Planned Disposition: Home Anticipated Discharge Date: 04/08/19 Discharge Date: 04/08/2019 Expected LOS: 3 Initial Reviewer: [email or web address] Initial Review Date: 04/06/2019 Generated: 04/09/19 10:18 am Comments DCP- Discharge Planning Updated by [email or web address]: Renay Jimenez on 04/08/19 3:[address] Patient Name: PEPE KENDALL Admission Status: ER Accout number: [id number] Admission Date: 04-05-2019 : 1970 Admission Diagnosis: Attending: SANTY PENNY Current LOS: 3 Anticipated DC Date: 04-09-2019 Planned Disposition: Home Primary Insurance: [facility] MEDICARE SOLUTIONS Discharge Planning Comments: CM SPOKE WITH JEVON AT [facility] [place], DENNIS IS BRINGING PATIENT A PORTABLE 02. I AM FAXING DOCUMENTS TO JEVON AT [facility] [place] AND LEAVING HER A COPY IN THE CM OFFICE. IMM SIGNED. PATIENT DISCHARGING TO HOME AFTER O2 TANK DELIVERED, Naturopathic Oncology Provider: Renay Jimenez DCP- Discharge Planning Updated by [email or web address]: Lisa Rao on 04/06/19 1:[address] DC PLAN: Return home with her adult daughter independently. ANTICIPATED DC NEEDS: Denied dc needs. CM met with patient to complete initial dc planning assessment. CM educated patient on the CM role and verbal consent given by patient to complete assessment. CM verified patient's address, phone number, and emergency contact phone numbers. Patient lives at home with her adult daughter and her baby. At discharge patient plans to return home and feels this is a safe discharge. Patient reports she just stopped smoking 1 week ago. Patient was recently hospitalized for COPD. CM discussed the importance of not smoking. CM discussed talking to MD about patches, nicotine gum, or other options available to assist with smoking cessation. CM discussed availability of home health, rehab services, and medical equipment. Patient denied known discharge needs at this time. Transportation provider at discharge will be daughter in law or one of her friends. CM will continue to follow and will assist as needed with dc plans/needs. Lisa Rao RN, [facility] DCPIA - Discharge Planning Initial Assessment Updated by [email or web address]: Lisa Rao on 04/06/19 1:57 pm * Is the patient Alert and Oriented? Yes * How many steps to enter\exit or inside your home? Two * PCP Dr. Yo * Pharmacy [facility] in [place]. * Preadmission Environment Home with Family * ADLs Independent * Equipment Nebulizer Oxygen Rolling Walker * Other Equipment Wears O2 prn - does not have portability. DME provider is [facility]. * List name and contact numbers for known caregivers / representatives who currently or will assist patient after discharge: Juve Kendall - daughter - [phone] Kaylyn Canales - sister - [phone] * Verbal permission to speak to the caregivers and representatives has been obtained from the patient. Yes * Community resources currently utilized None * Additional services required to return to the preadmission environment? No * Can the patient safely return to the preadmission environment? Yes * Has this patient been hospitalized within the prior 30 days at any hospital? Yes Coverage Notice Reviewer: [email or web address] Maggi Jimenez Notice Issued Date-Time: 04/08/2019 16:30 Notice Type: IM Discharge Notice Notice Delivered To: Patient Relationship to Patient: Core Measures Abstractor Name: Delivery Method: HAND - Hand Delivered Karlene Days: Prior Verbal Notification: Recipient Understood Notice: Yes Recipient Signature: Yes Med Rec Note Co-signed by Attending: Coverage Notice Comment: Last DP export: 04/08/19 3:47 Patient Name: PEPE KENDALL Page [phone] at 0918 All edits/amendments must be made on the electronic document DICTATION DATE: 04/09/19917 PORTABLE SAWMILL OPERATOR: STEVO 04/09/19917 RPT#: [id number] DC DATE:04/08/19 STATUS: DIS IN [facility] [address] [place] [address] END OF REPORT
== END 2019-04-08 17:59 | disposition home or self-care (01) | DRG 189 ==
LOC: D.ER 20:56 → D.M2 23:21
PROVIDERS: Family Medicine; Family Medicine Adult Medicine; ADMIT Family Medicine; ATTEND Family Medicine
DX: J96.21 Acute and chronic respiratory failure with hypoxia (principal); B20 Human immunodeficiency virus [HIV] disease; J43.9 Emphysema, unspecified; K76.0 Fatty (change of) liver, not elsewhere classified; K57.90 Diverticulosis of intestine, part unspecified, without perforation or abscess without bleeding; J30.9 Allergic rhinitis, unspecified; D50.9 Iron deficiency anemia, unspecified; J20.9 Acute bronchitis, unspecified

== ENCOUNTER 2019-05-25 21:42 | Observation (INO) | payer MEDICARE, MEDICAID ==
[~2019-05-25] VITALS: Ht 167.6 cm; Wt 92.5 kg
[~2019-05-25 21:42] MED LIST changes: +FLUTICASONE PRO16 GM NASAL; +OMNICEF300 MG PO; +PREDNISONE10 MG PO; +SYMBICORT 16010.2 GM INH
[2019-05-25 22:12] LABS: BASOPHILS 0.7 % (0-2); EOSINOPHILS 5.7 % (0-7); HEMATOCRIT 41.9 % (36.0-48.0); HEMOGLOBIN 13.7 g/dL (12-16); IMMATURE GRANULOCYTES 0.3 % (0-5); LYMPHOCYTES 48.8 % (15-50); MCH 31.4 pg (26.0-34.0); MCHC 32.7 g/dL (31.0-37.0); MCV 96.1 fL (80.0-100.0); MEAN PLATELET VOLUME 10.3 fL (7.4-10.4); NEUTROPHILS 36.5 % (40-80); RBC 4.36 10x6/uL (4.00-5.40); RDW 12.7 % (11.5-14.5); WBC 10.4 10x3/uL (4.8-10.8)
[2019-05-25 22:14] LABS: PLATELET COUNT 301 10x3/uL (130-400)
[2019-05-25 22:21] LABS: CALC OSMOLALITY 281 mosm/kg (275-300); CALCIUM 9.1 mg/dL (8.5-10.1); CARBON DIOXIDE 30.3 mmol/L (21.0-32.0); CHLORIDE - SERUM 103 mmol/L (98-107); POTASSIUM - SERUM 3.6 mmol/L (3.5-5.1); SODIUM 142 mmol/L (136-145); UREA NITROGEN 11 mg/dL (7-18); eGFR NON AFRICAN AMERICAN 63 mL/min (90-120)
[2019-05-25 22:22] LABS: INR 0.86 (0.85-1.17); PROTIME 11.7 SECONDS (11.6-15.0)
[2019-05-25 22:24] LABS: D-DIMER-QUANTITATIVE 0.42 ug/mLFEU (0.20-0.54); GLUCOSE 101 mg/dL (74-106)
[2019-05-25 22:34] LABS: ALBUMIN 3.5 g/dL (3.4-5.0); ALKALINE PHOSPHATASE 89 U/L (46-116); ALT (SGPT) 23 U/L (10-68); BILIRUBIN - TOTAL 0.16 mg/dL (0.2-1.3); LIPASE 175 U/L (73-393); PRO BNP 57 pg/mL (0-125); PROTEIN - SERUM 7.9 g/dL (6.4-8.2); TROPONIN-I < 0.017 ng/mL (0.000-0.060)
[2019-05-25 22:37] LABS: APPEARANCE CLEAR (CLEAR); BILIRUBIN NEGATIVE (NEGATIVE); COLOR YELLOW (YELLOW); EPITHELIAL CELLS 0-5 /hpf (0-5); GLUCOSE NEGATIVE (NEGATIVE); KETONE NEGATIVE (NEGATIVE); NITRITE NEGATIVE (NEGATIVE); PROTEIN NEGATIVE (NEGATIVE); RED CELLS - URINE 0-5 /hpf (0-5); SPECIFIC GRAVITY 1.015 (1.005-1.020); UROBILINOGEN NORMAL (NORMAL); WHITE CELLS - URINE 0-5 /hpf (NEGATIVE)
[2019-05-25 22:38] LABS: BACTERIA MODERATE /hpf (NEGATIVE)
[2019-05-25 22:40] LABS: UDS - AMPHET NEGATIVE QUAL (NEGATIVE); UDS - BARB NEGATIVE QUAL (NEGATIVE); UDS - BENZO NEGATIVE QUAL (NEGATIVE); UDS - COCAINE NEGATIVE QUAL (NEGATIVE); UDS - OPIATE NEGATIVE QUAL (NEGATIVE); UDS - PCP NEGATIVE QUAL (NEGATIVE); UDS - THC NEGATIVE QUAL (NEGATIVE)
[2019-05-25 23:02] VITALS: BP 140/96
[2019-05-25 23:15] VITALS: BP 116/81
[2019-05-26] VITALS (7 sets, daily range): BP systolic 100–151; BP diastolic 75–96; Ht 167.6 cm; Wt 92.5 kg
--- NOTE | 2019-05-26 00:42 | NUR ---
ADMIT TO ROOM 2121 FROM ER. ALERT/ORIENTED/AMBULATORY. ADMISSION HISTORY AND ASSESSMENT COMPLETED. PT C/O HEADACHE FROM HAVING TAKEN NITRO EARLIER. REQUESTED SANDWICH TRAY PROVIDED. PT TEACHING ON NPO AFTER COMPLETION OF SANDWICH TRAY. SAFETY PRECAUTIONS REVIEWED. PLAN OF CARE INITIATED.
--- NOTE | 2019-05-26 07:47 | NUR ---
ALERT AND ORIENTED, DENIES ANY NEEDS.TELEMERTY SHOWS SR 84. LEFT ARM SL. SR UP WITH CALL LIGHT IN REACH. WILL MONITOR
--- NOTE | 2019-05-26 16:38 | NUR ---
I have reviewed this patient and I concur with the Shift Assessment completed by the Licensed Practical Nurse today this shift.
--- NOTE | 2019-05-26 18:06 | NUR ---
IV RESITED TO RIGHT WRIST. DENIES ANY NEEDS. SR UP WITH CALL LIGHT IN REACH.TELEMERTY SHOWS SR
--- NOTE | 2019-05-26 18:20 | NUR ---
LYING QUIETLY. DENIES ANY NEEDS. DINNER SERVED.TELEMERTY SHOWS SR. SR UP WITH CALL LIGHT IN REACH. WILL MONITOR
--- NOTE | 2019-05-26 19:15 | NUR ---
RECEIVED REPORT, WILL ASSUME CARE OF PT, SITTING UP IN BED, DENIES ANY NEEDS AT THIS, BED IS LOW, SRX2, CALL LIGHT IN REACH, WILL CONTINUE PLAN OF CARE
--- NOTE | 2019-05-26 21:00 | NUR ---
ART OBJECTS REPAIRER ASSISTED PT IN SHOWER/CHANGED LINEN
[2019-05-27] VITALS: BP 133/80
[2019-05-27 04:00] VITALS: BP 106/56
--- NOTE | 2019-05-27 04:20 | NUR ---
I have reviewed this patient and I concur with the Shift Assessment completed by the Licensed Practical Nurse today this shift.
[2019-05-27 05:49] LABS: BASOPHILS 0.1 % (0-2); EOSINOPHILS 0 % (0-7); HEMOGLOBIN 13.1 g/dL (12-16); IMMATURE GRANULOCYTES 0.3 % (0-5); LYMPHOCYTES 19.8 % (15-50); MCH 31.3 pg (26.0-34.0); MCHC 32.8 g/dL (31.0-37.0); MCV 95.5 fL (80.0-100.0); MEAN PLATELET VOLUME 10.8 fL (7.4-10.4); NEUTROPHILS 74.8 % (40-80); PLATELET COUNT 290 10x3/uL (130-400); RBC 4.19 10x6/uL (4.00-5.40); RDW 12.7 % (11.5-14.5)
[2019-05-27 06:03] LABS: CALCIUM 8.8 mg/dL (8.5-10.1); CARBON DIOXIDE 24.9 mmol/L (21.0-32.0); CHLORIDE - SERUM 106 mmol/L (98-107); CREATININE - SERUM 0.8 mg/dL (0.6-1.3); MAGNESIUM - SERUM 1.9 mg/dL (1.8-2.4); SODIUM 141 mmol/L (136-145); UREA NITROGEN 10 mg/dL (7-18); eGFR NON AFRICAN AMERICAN 81 mL/min (90-120)
[2019-05-27 06:07] LABS: WBC 15.3 10x3/uL (4.8-10.8)
[2019-05-27 06:09] LABS: CALC OSMOLALITY 285 mosm/kg (275-300); GLUCOSE 202 mg/dL (74-106); POTASSIUM - SERUM 4.5 mmol/L (3.5-5.1)
[2019-05-27 08:00] VITALS: BP 127/86
--- NOTE | 2019-05-27 10:45 | NUR ---
RECEIVED PT IN BED AAOX4 RESWP UNLABORED SKIN W/D COLOR WNL DENIES ANY NEEDS OR DISCOMFORT
[2019-05-27 12:00] VITALS: BP 148/84
[2019-05-27 16:09] VITALS: BP 121/68
--- NOTE | 2019-05-27 16:23 | NUR ---
OFFERED PT TOBACCO QUITLINE REFERRAL. SHE DECLINED.
--- NOTE | 2019-05-27 17:25 | NUR ---
REVIEWED DISCHARGE INSTRUCTIONS WITH PT STATES UNDERSTANDING COPY GIVEN DCD SALINE LOCK TO RFA WITH IV CATHETER INTACT SITE FREE OF REDNESS OR EDEMA PT DISCHARGED HOME LEFT UNIT VIA W/C IN STABLE CONDITION WITH ALL PERSONAL BELONGINGS
--- NOTE | 2019-05-28 09:17 | MORECARE ---
CASE MANAGEMENT DISCHARGE SUMMARY PATIENT: TASHIA KENDALL UNIT: [id number] ADM DATE: 05/25/19 AGE: 48 : 70 SEX: F ROOM/BED: D.2121 AUTHOR: ARUN GOEL PHYSICIAN: REFERRING PHYSICIAN: JUNITO CAZARES MD DATE OF SERVICE: 05/28/19 Discharge Plan Patient Name: TASHIA KENDALL [facility] [facility] 1970 Planned Disposition: Home Anticipated Discharge Date: 05/27/19 Discharge Date: 05/27/2019 Expected LOS: 2 Initial Reviewer: [email or web address] Initial Review Date: 05/28/2019 Generated: 05/28/19 10:16 am Coverage Notice Reviewer: [email or web address] Maggi Cameron Notice Issued Date-Time: 05/26/2019 14:59 Notice Type: Medicare Outpatient Observation Notice Notice Delivered To: Patient Relationship to Patient: Self Cfo Controller Name: Tashia Kendall Delivery Method: HAND - Hand Delivered Karlene Days: Prior Verbal Notification: Recipient Understood Notice: Yes Recipient Signature: Yes Med Rec Note Co-signed by Attending: Coverage Notice Comment: LINO delivered to and signed by patient. Original given to patient and one placed on chart. Patient Name: TASHIA KENDALL Page [phone] at 0917 All edits/amendments must be made on the electronic document DICTATION DATE: 05/28/19915 CASH CLERK: STEVO 05/28/19915 RPT#: [id number] DC DATE:05/27/19 STATUS: DIS IN [facility] [address] [place] [address] END OF REPORT
--- NOTE | 2019-05-28 12:18 | CN ---
PATIENT NAME:PEPE BOLTON MEDICAL RECORD: [id number] : [birth year] LOCATION:D. D.2121 ADMIT DATE: 05/25/19 ACCOUNT: [id number] CONSULTING PHYSICIAN: JUNITO PATRICIA MD REFERRING PHYSICIAN: JUNITO CAZARES MD DATE OF CONSULTATION: 05/26/2019 HISTORY OF PRESENT ILLNESS: A 48-year-old female with a no known history of coronary artery disease, has a history of HIV, obstructive pulmonary disease, off cigarettes at this point, admitted with chest pain, somewhat atypical, sharp, stabbing, right-sided, radiating to right shoulder. There is a pleuritic component, worse with inspiration. No history of hypertension, quit smoking at the time of pneumocystis pneumonia diagnosis. Cardiac enzymes are negative at this point. EKG is normal. We are asked to see her concerning her cardiovascular status. PAST MEDICAL HISTORY: Include; 1. History of HIV. 2. Obstructive pulmonary disease. ALLERGIES: PENICILLIN, ASPIRIN. MEDICATIONS: Typically include a Triumeq 1 tablet p.o. daily, albuterol 2 puffs q.4 p.r.n., Flexeril 10 mg p.o. at bedtime p.r.n., Lexapro 10 daily, Neurontin 300 t.i.d., Ingalls 5/325 one q.4 p.r.n., Singulair 10 at bedtime. SOCIAL HISTORY: Quit smoking previously, nondrinker. Easily takes care of all her ADLs. No set exercise program. REVIEW OF SYSTEMS: The patient reports easy bruising but reports no swollen glands. The patient reports no fever, no night sweats, no significant weight gain, no significant weight loss. No significant exercise tolerance. The patient reports no dry eyes, no irritation, no vision change. Patient reports no difficulty hearing and no ear pain. Patient reports no frequent nose bleeds or nose and sinus problems. Patient reports on arm pain on exertion. No shortness of breath while lying down. No history of heart murmur. Patient reports no cough, no wheezing or coughing up blood. Patient reports no abdominal pain, no vomiting. Normal appetite. No diarrhea and not vomiting blood. No nausea and no constipation. Patient reports no incontinence. No difficulty urinating. No hematuria. No increased frequency. Patient reports no muscle aches. No weakness, no arthralgias, no back pain. No swelling of the extremities. Patient reports no abnormal mole, no jaundice, no rashes. Reports no loss of consciousness. No weakness and no numbness. No seizures, dizziness, or headaches. The patient reports no depression, no sleep disturbance, feeling safe in a relationship and no alcohol abuse. Patient reports on fatigue. Reports no runny nose or sinus pressure. No itching, no hives, and no frequent sneezing. PHYSICAL EXAMINATION: GENERAL: Pleasant female in no acute distress, appears stated age. VITAL SIGNS: Blood pressure 100/75, pulse 100 and regular. HEENT: Normocephalic, atraumatic. NECK: No JVD or bruit. HEART: Regular, soft, I to II/ systolic ejection murmur. LUNGS: Fairly good excursion. Scattered expiratory wheezes. CONSULT REPORT [id number] PEPE BOLTONE ABDOMEN: Soft, nontender. EXTREMITIES: Pulses 2+. No edema. DIAGNOSTIC DATA: EKG unchanged. IMPRESSION: Chest pain, certainly pleuritic component. We will give one dose of steroid. Check echocardiographic study. Further recommendations based on clinical course. TRANSINT:[id number] Voice Confirmation ID: [id number] DOCUMENT ID: [id number] JUNITO PATRICIA MD at 1218 CC: [id number] DICTATION DATE: 05/26/19 1000 RUBBER CUTTING MACHINE TENDER: 05/26/19 1204 DIS IN 05/27/19 [facility] [address] [place] [address]
--- NOTE | 2019-05-28 12:18 | EC ---
PATIENT:PEPE BOLTON DATE OF SERVICE: 05/25/19 SEX: F MEDICAL RECORD: [id number] DATE OF : [birth year] LOCATION:D.M2 D.212 AGE OF PATIENT: 48 ADMISSION DATE: 05/25/19 REFERRING PHYSICIAN: INTERPRETING PHYSICIAN: JUNITO PATRICIA MD ECHOCARDIOGRAM REPORT ECHO CHARGES 4 ECHO COMPLETE Date: 05/26/19 CLINICAL DIAGNOSIS: CP ECHOCARDIOGRAPHIC MEASUREMENTS (adult normal given) AC root (d.<3.7cm) 3.0 cm LV Septum d (<1.2 cm> 1.0 cm Valve Excursion 1.0 cm LV Septum (systole) 1.6 cm Left Atria (s.<4.0cm> 3.6 cm LVPW d(<1.2cm) 1.1 cm RV (d.<2.3cm) 2.7 cm LVPW (sytole) 1.2 cm LV diastole(<5.6CM) 3.7 cm MV E-F(>70mm/sec) cm LV systole 2.5 cm LVOT Diameter 1.9 cm MV exc.(>10mm) cm Est.ejection fraction (50-75%) % DOPPLER: LVIT cm/sec A 90 cm/sec E 64 cm/sec LA cm/sec RVSP 18.7 mmHg LVOT 92 cm/sec AOP1/2T m/s Asc. Ao 121 cm/sec RVOT 76 cm/sec RA cm/sec PA 72 cm/sec AV Gradient Peak 5.8 mmHg AV Mean 3.1 mmHg AV Area 2.4 cm MV Gradient Peak 3.4 mmHg MV Mean 1.6 mmHg MV Area cm COMMENTS: Used Car Sales Manager: [facility] Logger Driving Horses: 3 Dr. Huerta TAPE# PACS Pericardial Effusion N DATE OF SERVICE: Adequate 2D, color flow, spectral Doppler, and M-mode No LVH. LV internal dimension is normal. Wall motion is normal. EF is greater than or equal to 55%. Aortic valve is tricuspid. No evidence of stenosis by Doppler interrogation. The left atrium is normal. Mitral valve shows no prolapse. Trace MR. Right-sided chambers are grossly normal. Trace TR. TRANSINT:[id number] Voice Confirmation ID: [id number] DOCUMENT ID: [id number] ECHOCARDIOGRAM REPORT [id number] PEPE BOLTON JUNITO PATRICIA MD at 1218 CC: [id number] DICTATION DATE: 05/27/19 1134 SAS BI DEVELOPER: 05/27/19 2244 DIS IN 05/27/19 [facility] [id number] [place] [address]
== END 2019-05-27 17:25 | disposition home or self-care (01) ==
LOC: D.ER 21:42 → OBSVTIME 22:58 → D.M2 22:58
PROVIDERS: Family Medicine; ADMIT Family Medicine; ATTEND Family Medicine
DX: R07.9 Chest pain, unspecified (principal); N39.0 Urinary tract infection, site not specified; J44.9 Chronic obstructive pulmonary disease, unspecified; J45.909 Unspecified asthma, uncomplicated; B20 Human immunodeficiency virus [HIV] disease; G62.9 Polyneuropathy, unspecified; K76.0 Fatty (change of) liver, not elsewhere classified; F32.5 Major depressive disorder, single episode, in full remission; J96.11 Chronic respiratory failure with hypoxia

== ENCOUNTER 2019-08-20 17:06 | Emergency (ER) | payer MEDICARE, MEDICAID ==
[~2019-08-20] VITALS: Ht 167.6 cm; Wt 92.7 kg
[2019-08-20 17:15] VITALS: Ht 167.6 cm; Wt 92.7 kg
[2019-08-20 18:12] LABS: BASOPHILS 0.7 % (0-2); EOSINOPHILS 7.1 % (0-7); HEMATOCRIT 42.9 % (36.0-48.0); HEMOGLOBIN 13.8 g/dL (12-16); IMMATURE GRANULOCYTES 0.2 % (0-5); LYMPHOCYTES 45.4 % (15-50); MCH 31.1 pg (26.0-34.0); MCHC 32.2 g/dL (31.0-37.0); MCV 96.6 fL (80.0-100.0); MEAN PLATELET VOLUME 10.4 fL (7.4-10.4); MONOCYTES 6.6 % (2-11); PLATELET COUNT 295 10x3/uL (130-400); RBC 4.44 10x6/uL (4.00-5.40); RDW 12.4 % (11.5-14.5); WBC 8.2 10x3/uL (4.8-10.8)
[2019-08-20 18:26] LABS: APTT 31.4 SECONDS (22.8-39.4); INR 0.9 (0.85-1.17); PROTIME 12.2 SECONDS (11.6-15.0)
[2019-08-20 18:33] LABS: CALC OSMOLALITY 272 mosm/kg (275-300); CALCIUM 8.9 mg/dL (8.5-10.1); CARBON DIOXIDE 28.5 mmol/L (21.0-32.0); CHLORIDE - SERUM 102 mmol/L (98-107); POTASSIUM - SERUM 3.9 mmol/L (3.5-5.1); SODIUM 137 mmol/L (136-145); UREA NITROGEN 11 mg/dL (7-18); eGFR NON AFRICAN AMERICAN 62 mL/min (90-120)
[2019-08-20 18:45] LABS: GLUCOSE 98 mg/dL (74-106)
[2019-08-20 18:50] LABS: ALBUMIN 3.6 g/dL (3.4-5.0); ALKALINE PHOSPHATASE 93 U/L (30-120); ALT (SGPT) 23 U/L (10-68); CREATINE KINASE 71 UL (21-215); PRO BNP 30 pg/mL (0-125); PROTEIN - SERUM 7.8 g/dL (6.4-8.2); TROPONIN-I < 0.017 ng/mL (0.000-0.060)
[2019-08-20 22:25] VITALS: BP 134/96
== END 2019-08-20 22:26 | disposition home or self-care (01) ==
LOC: D.ER 17:06
PROVIDERS: Family Medicine
DX: R06.02 Shortness of breath (principal); J44.9 Chronic obstructive pulmonary disease, unspecified; B20 Human immunodeficiency virus [HIV] disease; R51 Headache; R11.0 Nausea; K76.0 Fatty (change of) liver, not elsewhere classified; G62.9 Polyneuropathy, unspecified

== ENCOUNTER 2019-09-28 22:43 | Emergency (ER) | payer MEDICARE, MEDICAID ==
[~2019-09-28] VITALS: Ht 167.6 cm; Wt 90.9 kg
[2019-09-28 23:16] VITALS: Ht 167.6 cm; Wt 90.9 kg
[2019-09-28 23:37] LABS: BASOPHILS 0.4 % (0-2); EOSINOPHILS 3.7 % (0-7); HEMATOCRIT 39.5 % (36.0-48.0); HEMOGLOBIN 12.8 g/dL (12-16); IMMATURE GRANULOCYTES 0.2 % (0-5); LYMPHOCYTES 27.2 % (15-50); MCH 31.6 pg (26.0-34.0); MCHC 32.4 g/dL (31.0-37.0); MCV 97.5 fL (80.0-100.0); MEAN PLATELET VOLUME 10.1 fL (7.4-10.4); NEUTROPHILS 61.5 % (40-80); PLATELET COUNT 264 10x3/uL (130-400); RBC 4.05 10x6/uL (4.00-5.40); RDW 12.9 % (11.5-14.5); WBC 10.7 10x3/uL (4.8-10.8)
[2019-09-28 23:40] LABS: CALC OSMOLALITY 271 mosm/kg (275-300); CALCIUM 8.3 mg/dL (8.5-10.1); CARBON DIOXIDE 28.5 mmol/L (21.0-32.0); CHLORIDE - SERUM 105 mmol/L (98-107); CREATININE - SERUM 0.7 mg/dL (0.6-1.3); GLUCOSE 86 mg/dL (74-106); POTASSIUM - SERUM 3.8 mmol/L (3.5-5.1); SODIUM 137 mmol/L (136-145); UREA NITROGEN 11 mg/dL (7-18); eGFR NON AFRICAN AMERICAN > 90 mL/min (90-120)
[2019-09-28 23:46] LABS: APTT 31.1 SECONDS (22.8-39.4); INR 0.94 (0.85-1.17); PROTIME 12.6 SECONDS (11.6-15.0)
[2019-09-29 00:11] LABS: ALBUMIN 3.2 g/dL (3.4-5.0); ALKALINE PHOSPHATASE 83 U/L (30-120); ALT (SGPT) 18 U/L (10-68); BILIRUBIN - TOTAL 0.32 mg/dL (0.2-1.3); CKMB 1.1 U/L (0.0-3.6); CREATINE KINASE 47 UL (21-215); PROTEIN - SERUM 7.1 g/dL (6.4-8.2)
[2019-09-29 00:14] LABS: TROPONIN-I < 0.017 ng/mL (0.000-0.060)
[2019-09-29] MEDS ORDERED: TYLENOL #4 W/CO1 TAB PO (02:32)
[2019-09-29] MEDS ORDERED: NAPROSYN500 MG PO (02:32)
[2019-09-29 02:41] VITALS: BP 138/93
== END 2019-09-29 02:41 | disposition home or self-care (01) ==
LOC: D.ER 22:43
PROVIDERS: Family Medicine
DX: J84.81 Lymphangioleiomyomatosis (principal); R07.89 Other chest pain; J44.9 Chronic obstructive pulmonary disease, unspecified; B20 Human immunodeficiency virus [HIV] disease; Z99.81 Dependence on supplemental oxygen

== ENCOUNTER → 2019-12-11 08:08 | Outpatient (CLI) | payer MEDICARE, MEDICAID ==
[2019-09-28 23:16] VITALS: BMI 32.3
[~2019-12-11 08:08] MED LIST changes: +NAPROSYN500 MG PO; +TYLENOL #4 W/CO1 TAB PO
== END | disposition home or self-care (01) ==
LOC: D.US 08:08
PROVIDERS: ATTEND General Practice
DX: K76.0 Fatty (change of) liver, not elsewhere classified (principal)

== ENCOUNTER 2020-09-01 10:45 | Outpatient (CLI) | payer MEDICARE, MEDICAID ==
[2020-05-13 22:26] VITALS: BMI 32.5
== END 2020-09-01 23:59 | disposition home or self-care (01) ==
LOC: D.MAMMO 10:45
PROVIDERS: ATTEND General Practice
DX: Z12.31 Encounter for screening mammogram for malignant neoplasm of breast (principal)

== ENCOUNTER → 2020-10-16 08:47 | Outpatient (CLI) | payer MEDICARE, MEDICAID ==
[2020-05-13 22:26] VITALS: BMI 32.5
== END | disposition home or self-care (01) ==
LOC: D.MRI 08:47
PROVIDERS: ATTEND General Practice
DX: M25.512 Pain in left shoulder (principal)